=== PATIENT | female | born 1955 | race Caucasian/White ===

== ENCOUNTER 2017-12-25 17:14 | Emergency (ER) | payer OTHER ==
[~2017-12-25] VITALS: Ht 154.9 cm; Wt 142.0 kg
[~2017-12-25 17:14] MED LIST: CARV6.252 PO; FE T325T PO; FURO20 PO; GLIP10TA67 PO; INDO50 PO; METF500 PO; METO5 PO; NORC7.5T PO; OXYB10TA PO; POTA-243 PO; POTA20IN3 PO; PRAV80 PO; PRIL40CA PO; RIVA20 PO; SERT-129 PO; TRAD5TAB PO; WELL150T PO
[2017-12-25 17:37] VITALS: BP 191/89; PULSE 83; RESP 18; TEMP 99.3; O2SAT 97
--- NOTE | 2017-12-25 18:00 | PD ---
HPI Chief Complaint: Skin Problem Time Seen by Provider: 17:47 Travel History International Travel<30 days: No Contact w/Intl Traveler<30days: No Traveled to known affect area: No History of Present Illness HPI 62-year-old female states that she had a trip and fall a couple days ago and has been having left foot pain. She went to an urgent care and had an x-ray that showed a fracture and they were wanting her to go somewhere else to get a possible boot but she elected to just come here to finish her evaluation given she is concerned that her sugars are running high and that she has redness to her upper leg. She denies any other concurrent complaints. She states yesterday when she checked her sugars it was in the 300s. Quality pain is sharp. Severity is moderate. Pain is worse with movement. She denies other modifying factors. PFSH Past Medical History Cardiovascular Problems: Yes (CABG X 4 VESSEL) Diabetes: Yes Hypertension: Yes Myocardial Infarction: Yes Past Surgical History Section: Yes (X2) Coronary Artery Bypass Graft: Yes (QUAD) Joint Replacement: Yes (BILAT KNEE) Social History Alcohol Use: No Tobacco Use: No Substance Use: No Allergies-Medications (Allergen,Severity, Reaction): Coded Allergies: enoxaparin (Unverified Allergy, Severe, BLOOD CLOTS, 12/25/17) heparin (porcine) (Unverified Allergy, Severe, BLOOD CLOTS, 12/25/17) meperidine (Unverified Allergy, Intermediate, HEADACHE, 12/25/17) morphine (Unverified Allergy, Intermediate, HEADACHE, 12/25/17) Reported Meds & Prescriptions Reported Meds & Active Scripts Active Percocet (Oxycodone-Acetaminophen) 5-325 mg Tab 1 Tab PO Q6H PRN Keflex (Cephalexin) 500 Mg Capsule 500 Mg PO Q6H 7 Days Reported Senokot (Sennosides) 8.6 Mg Tab 8.6 Mg PO BID Stool Softener (Docusate Sodium) 100 Mg Cap 1 Cap PO BID Eql Cinnamon (Cinnamon) 500 Mg Cap 500 Mg PO DAILY Hydrocodone-Acetaminophen 7.5 Mg-325 Mg Tab 1 Tab PO TID Potassium Chloride ER (Potassium Chloride) 20 Meq Tab 20 Meq PO DAILY Furosemide 40 Mg Tab 40 Mg PO DAILY Omeprazole 40 Mg Cap 40 Mg PO DAILY Flexeril (Cyclobenzaprine HCl) 10 Mg Tab 10 Mg PO TID PRN Carvedilol 6.25 Mg Tab 6.25 Mg PO BID Bupropion HCl ER 24 HR (Bupropion HCl) 150 Mg Tab 150 Mg PO DAILY Tradjenta (Linagliptin) 5 Mg Tab 5 Mg PO DAILY Pravastatin 40 Mg Tab 40 Mg PO DAILY Metolazone 5 Mg Tab 5 Mg PO DIRECTED Eliquis (Apixaban) 2.5 Mg Tab 2.5 Mg PO BID Review of Systems Except as stated in HPI: all other systems reviewed are Neg Physical Exam Narrative GENERAL: 62-year-old female in no apparent distress SKIN: To left lower leg above the ankle there is a small amount of redness near her chronic venous stasis changes, no crepitus or induration noted HEAD: Atraumatic. Normocephalic. EYES: Pupils equal and round. No scleral icterus. No injection or drainage. ENT: No nasal bleeding or discharge. Mucous membranes pink and moist. NECK: Trachea midline. No JVD. CARDIOVASCULAR: Regular rate and rhythm. RESPIRATORY: No accessory muscle use. Clear to auscultation. Breath sounds equal bilaterally. MUSCULOSKELETAL: No obvious deformities. Pain with palpation of left foot with swelling, no pain with other joints , neurovascularly intact, no lacerations over, compartments soft. NEUROLOGICAL: Awake and alert. Motor grossly within normal limits. Normal speech. PSYCHIATRIC: Appropriate mood and affect; insight and judgment normal. Data Data Last Documented VS Vital Signs Date Time Temp Pulse Resp B/P (MAP) Pulse Ox O2 Delivery O2 Flow Rate FiO2 12/25/17 17:37 99.3 83 18 191/89 (123) 97 Orders Orders Foot, Complete ([id number]) (12/25/17 ) Blood Glucose (12/25/17 17:51) Magnesium (Mg) (12/25/17 17:52) Phosphorus (Po4) (12/25/17 17:52) Complete Blood Count With Diff (12/25/17 17:52) Basic Metabolic Panel (Bmp) (12/25/17 17:52) Iv Access Insert/Monitor (12/25/17 17:52) Shoe Post Op (12/25/17 ) Ed Discharge Order (12/25/17 18:33) Labs Laboratory Tests Test 12/25/17 18:00 White Blood Count 7.8 TH/MM3 Red Blood Count 4.30 MIL/MM3 Hemoglobin 13.2 GM/DL Hematocrit 38.9 % Mean Corpuscular Volume 90.6 FL Mean Corpuscular Hemoglobin 30.8 PG Mean Corpuscular Hemoglobin Concent 33.9 % Red Cell Distribution Width 12.1 % Platelet Count 215 TH/MM3 Mean Platelet Volume 7.7 FL Neutrophils (%) (Auto) 67.0 % Lymphocytes (%) (Auto) 21.9 % Monocytes (%) (Auto) 7.1 % Eosinophils (%) (Auto) 3.2 % Basophils (%) (Auto) 0.8 % Neutrophils # (Auto) 5.1 TH/MM3 Lymphocytes # (Auto) 1.7 TH/MM3 Monocytes # (Auto) 0.6 TH/MM3 Eosinophils # (Auto) 0.3 TH/MM3 Basophils # (Auto) 0.1 TH/MM3 CBC Comment DIFF FINAL Differential Comment Blood Urea Nitrogen 14 MG/DL Creatinine 1.20 MG/DL Random Glucose 369 MG/DL Calcium Level 8.7 MG/DL Phosphorus Level 2.7 MG/DL Magnesium Level 1.8 MG/DL Sodium Level 137 MEQ/L Potassium Level 3.5 MEQ/L Chloride Level 101 MEQ/L Carbon Dioxide Level 29.9 MEQ/L Anion Gap 6 MEQ/L Estimat Glomerular Filtration Rate 45 ML/MIN MDM Medical Decision Making Medical Screen Exam Complete: Yes Emergency Medical Condition: Yes Medical Record Reviewed: Yes (past history confirmed) Interpretation(s) CBC & BMP Diagram 12/25/17 18:00 Calcium Level 8.7, Phosphorus Level 2.7, Magnesium Level 1.8 left foot with metatarsal fracture noted Differential Diagnosis Fracture, cellulitis, hyperglycemia, DKA Narrative Course Will check blood work, left foot x-ray and reevaluate Glucose is in the 300s with normal bicarbonate. This can be followed outpatient. Patient has fracture noted to her metatarsal that can be followed outpatient and postop shoe will be placed. She has very small area of cellulitis noted to her left lower leg without associated leukocytosis. We'll place on Keflex for this.Patient denies any new complaints and states that they are feeling better. Patient happy with care, all questions answered. Patient knows that follow up is incumbent on them and to return to the emergency room immediately if new or worsening symptoms develop. Patient given strict return precautions, vitals reviewed and are normal, agrees to further workup as an outpatient. Diagnosis Primary Impression: Foot fracture, left Qualified Codes: S92.902A - Unspecified fracture of left foot, initial encounter for closed fracture Additional Impressions: Cellulitis Qualified Codes: L03.116 - Cellulitis of left lower limb Diabetes Qualified Codes: E11.8 - Type 2 diabetes mellitus with unspecified complications Patient Instructions: General Instructions Additional Instructions: percocet as needed for severe pain, take antibiotic as directed, follow with primary and stay cutter Thursday, return as needed Med/Other Pt SpecificInfo: Prescription(s) given Scripts Oxycodone-Acetaminophen (Percocet) 5-325 mg Tab 1 TAB PO Q6H Y for PAIN, #10 TAB 0 Refills Prov: Michelle Mcgee MD 12/25/17 Cephalexin (Keflex) 500 Mg Capsule 500 MG PO Q6H for Infection for 7 Days, #28 CAP 0 Refills Prov: Michelle Mcgee MD 12/25/17 Disposition: 01 DISCHARGE HOME Condition: Stable Michelle Mcgee MD Dec 25, 2017 18:00
[2017-12-25] MEDS ORDERED: PRAV40TA2 PO (18:02)
[2017-12-25] MEDS ORDERED: BUPR150T3 PO (18:02)
[2017-12-25] MEDS ORDERED: OMEP40CA2 PO (18:02)
[2017-12-25] MEDS ORDERED: TRAD5TAB PO (18:02)
[2017-12-25] MEDS ORDERED: FURO40TA PO (18:02)
[2017-12-25] MEDS ORDERED: POTA-163 PO (18:02)
[2017-12-25] MEDS ORDERED: SENO8.6T5 PO (18:02)
[2017-12-25] MEDS ORDERED: DOCU1CAP66 PO (18:02)
[2017-12-25] MEDS ORDERED: CARV6.252 PO (18:02)
[2017-12-25] MEDS ORDERED: METO5TAB3 PO (18:02)
[2017-12-25] MEDS ORDERED: APIX2.5T PO (18:02)
[2017-12-25] MEDS ORDERED: CINN500C2 PO (18:02)
[2017-12-25] MEDS ORDERED: CYCL10TA PO (18:02)
[2017-12-25] MEDS ORDERED: HYDR-3580 PO (18:02)
[2017-12-25 18:16] LABS: AUTOMATED NEUTROPHIL # 5.1 TH/MM3 (1.8-7.7); BASOPHIL # 0.1 TH/MM3 (0-0.2); BASOPHIL % 0.8 % (0.0-2.0); EOSINOPHIL # 0.3 TH/MM3 (0-0.4); EOSINOPHIL % 3.2 % (0.0-4.0); HEMATOCRIT 38.9 % (35.0-46.0); HEMOGLOBIN 13.2 GM/DL (11.6-15.3); LYMPH % 21.9 % (9.0-44.0); LYMPHOCYTE # 1.7 TH/MM3 (1.0-4.8); MEAN CELL VOLUME 90.6 FL (80.0-100.0); MEAN CORPUSCULAR HEMOGLOBIN 30.8 PG (27.0-34.0); MEAN CORPUSCULAR HGB CONC 33.9 % (32.0-36.0); MEAN PLATELET VOLUME 7.7 FL (7.0-11.0); MONO % 7.1 % (0.0-8.0); MONOCYTE # 0.6 TH/MM3 (0-0.9); PLATELET COUNT 215 TH/MM3 (150-450); RED CELL DISTRIBUTION WIDTH 12.1 % (11.6-17.2); WHITE BLOOD COUNT 7.8 TH/MM3 (4.0-11.0)
--- NOTE | 2017-12-25 18:25 | RADRPT ---
EXAM DATE/TIME: 12/25/2017 18:11 [facility] COMPARISON: No previous studies available for comparison. INDICATIONS : Left lateral foot pain post fall. MEDICAL HISTORY : None. SURGICAL HISTORY : None. ENCOUNTER: Initial ACUITY: 3 days PAIN SCORE: 8/10 LOCATION: Left foot FINDINGS: The examination demonstrates an angulated fracture involving the distal aspect of the third metatarsa l. The remainder the visualized bony structures are intact. CONCLUSION: Comminuted, foreshortened, angulated fracture involving the third metatarsal. Jr Fowler MD on December 25, 2017 at 18:23 Board Certified Radiologist. This report was verified electronically.
[2017-12-25 18:26] LABS: CALCIUM 8.7 MG/DL (8.5-10.1)
[2017-12-25 18:27] LABS: BICARBONATE 29.9 MEQ/L (21.0-32.0); MAGNESIUM 1.8 MG/DL (1.5-2.5)
[2017-12-25 18:30] LABS: CREATININE 1.2 MG/DL (0.50-1.00); PHOSPHORUS 2.7 MG/DL (2.5-4.9)
[2017-12-25] MEDS ORDERED: CEPH-460 PO (18:32)
[2017-12-25] MEDS ORDERED: PERC5TAB12 PO (18:32)
== END 2017-12-25 19:00 | disposition home or self-care (01) ==
LOC: PHED 17:14
DX: S92.902A Unspecified fracture of left foot, initial encounter for closed fracture (principal); L03.116 Cellulitis of left lower limb; E11.8 Type 2 diabetes mellitus with unspecified complications; E11.65 Type 2 diabetes mellitus with hyperglycemia; I10 Essential (primary) hypertension; I25.2 Old myocardial infarction; Z95.1 Presence of aortocoronary bypass graft; Z79.84 Long term (current) use of oral hypoglycemic drugs; W01.0XXA Fall on same level from slipping, tripping and stumbling without subsequent striking against object, initial encounter
CPT/HCPCS: 73630; 80048; 83735; 84100; 85025; 99284; L3260

== ENCOUNTER 2018-02-27 09:39 | Emergency (ER) | payer OTHER ==
[~2018-02-27] VITALS: Ht 154.9 cm; Wt 140.0 kg
[~2018-02-27 09:39] MED LIST changes: +APIX2.5T PO; +BUPR150T3 PO; +CEPH-460 PO; +CINN500C2 PO; +CYCL10TA PO; +DOCU1CAP66 PO; -FE T325T PO; -FURO20 PO; +FURO40TA PO; -GLIP10TA67 PO; +HYDR-3580 PO; -INDO50 PO; -METF500 PO; -METO5 PO; +METO5TAB3 PO; -NORC7.5T PO; +OMEP40CA2 PO; -OXYB10TA PO; +PERC5TAB12 PO; +POTA-163 PO; -POTA-243 PO; -POTA20IN3 PO; +PRAV40TA2 PO; -PRAV80 PO; -PRIL40CA PO; -RIVA20 PO; +SENO8.6T5 PO; -SERT-129 PO; -WELL150T PO
[2018-02-27 09:43] VITALS: BP 203/88; PULSE 84; RESP 16; TEMP 98.4; O2SAT 93
[2018-02-27] MEDS ORDERED: oxyCODONE/ACETAMINOPHEN 5 MG/325 MG TAB PO ONE (10:00)
[2018-02-27] MEDS ORDERED: SODIUM CHLORIDE 0.9% FLUSH 10 ML FLUSH IVF PRN (10:00)
[2018-02-27] MEDS ORDERED: NOVOLOGP2 SQ (10:02)
[2018-02-27] MEDS ORDERED: SIMV40TA PO (10:02)
[2018-02-27] MEDS ORDERED: INSU1INJ14 SQ (10:04)
[2018-02-27 10:16] VITALS: BP 149/66; PULSE 71; RESP 18; O2SAT 94
[2018-02-27 10:42] LABS: BASOPHIL % 0.6 % (0.0-2.0); EOSINOPHIL # 0.2 TH/MM3 (0-0.4); EOSINOPHIL % 3.2 % (0.0-4.0); HEMATOCRIT 38.1 % (35.0-46.0); HEMOGLOBIN 12.9 GM/DL (11.6-15.3); LYMPH % 20.4 % (9.0-44.0); LYMPHOCYTE # 1.5 TH/MM3 (1.0-4.8); MEAN CELL VOLUME 89.2 FL (80.0-100.0); MEAN CORPUSCULAR HEMOGLOBIN 30.3 PG (27.0-34.0); MEAN PLATELET VOLUME 8.3 FL (7.0-11.0); MONO % 6.5 % (0.0-8.0); MONOCYTE # 0.5 TH/MM3 (0-0.9); NEUT % 69.3 % (16.0-70.0); PLATELET COUNT 233 TH/MM3 (150-450); RED BLOOD COUNT 4.27 MIL/MM3 (4.00-5.30); RED CELL DISTRIBUTION WIDTH 12.8 % (11.6-17.2); WHITE BLOOD COUNT 7.2 TH/MM3 (4.0-11.0)
[2018-02-27 10:51] LABS: CHLORIDE 105 MEQ/L (98-107); SODIUM (NA) 140 MEQ/L (136-145)
[2018-02-27 10:53] LABS: CALCIUM 8.7 MG/DL (8.5-10.1)
[2018-02-27 10:54] LABS: ALBUMIN 3.2 GM/DL (3.4-5.0); BLOOD UREA NITROGEN 14 MG/DL (7-18); GLUCOSE,RANDOM 282 MG/DL (74-106); INTERNATIONAL NORMALIZED RATIO 1.1 RATIO; PROTHROMBIN TIME - PATIENT 11.4 SEC (9.8-11.6)
[2018-02-27 10:57] LABS: ALT (GPT) 14 U/L (10-53); AST (GOT) 10 U/L (15-37); GLOMERULAR FILTRATION RATE 50 ML/MIN (>89)
[2018-02-27 10:59] LABS: TOTAL BILIRUBIN ADULT 0.6 MG/DL (0.2-1.0); TOTAL PROTEIN 6.5 GM/DL (6.4-8.2)
[2018-02-27 11:00] LABS: ALKALINE PHOSPHATASE 79 U/L (45-117)
[2018-02-27 11:02] LABS: TROPONIN I LESS THAN 0.02 NG/ML (0.02-0.05)
--- NOTE | 2018-02-27 11:14 | PD ---
HPI Chief Complaint: Edema Time Seen by Provider: 09:48 Travel History International Travel<30 days: No Contact w/Intl Traveler<30days: No Traveled to known affect area: No History of Present Illness HPI Patient is a 63 year old female who comes in complaining of pain and swelling to her left leg. She broke her left foot about 2 months ago and has been following with Dr. Art regarding this. She says in the past few days and has noticed increased swelling and pain to her calf. She says she woke up this morning with some shortness of breath. She denies any chest pain. She denies fever or chills. She took a Manley this morning for the pain. She takes Eliquis and has been taking it as directed. Severity is mild to moderate. PFSH Past Medical History Cardiovascular Problems: Yes (CABG X 4 VESSEL) High Cholesterol: Yes Diabetes: Yes Patient Takes Glucophage: No GERD: Yes Hypertension: Yes Neurologic: Yes (Neuropathy ) Respiratory: Yes (PE) Myocardial Infarction: Yes ?: Not Past Surgical History Section: Yes (X's 3) Coronary Artery Bypass Graft: Yes (QUAD) Joint Replacement: Yes (BILAT KNEE) Social History Alcohol Use: Yes (Occ.) Tobacco Use: No Substance Use: No Allergies-Medications (Allergen,Severity, Reaction): Coded Allergies: enoxaparin (Unverified Allergy, Severe, BLOOD CLOTS, 02/27/18) heparin (porcine) (Unverified Allergy, Severe, BLOOD CLOTS, 02/27/18) meperidine (Unverified Allergy, Intermediate, HEADACHE, 02/27/18) morphine (Unverified Allergy, Intermediate, RASH, 02/27/18) Reported Meds & Prescriptions Reported Meds & Active Scripts Active Reported Tresiba Flextouch Pen Inj (Insulin Degludec Inj) 300 unit/3 ML Pen 54 Units SQ BID Novolog Inj (Insulin Aspart) 1,000 Unit/10 Ml Vial 17 Units SQ ACHS Max dose at bedtime ( ) units; sugars less than 70,(0) units; sugars 150-199,(2) units; sugars 200-249,(4) units; sugars 250-299,(7) units; sugars 300-349,(10) units; sugars greater than 349,(12)units Simvastatin 40 Mg Tab 40 Mg PO HS Hydrocodone-Acetaminophen 7.5 Mg-325 Mg Tab 1 Tab PO TID Potassium Chloride ER (Potassium Chloride) 20 Meq Tab 20 Meq PO DAILY Furosemide 40 Mg Tab 40 Mg PO DAILY Omeprazole 40 Mg Cap 40 Mg PO DAILY Carvedilol 6.25 Mg Tab 6.25 Mg PO BID Bupropion HCl ER 24 HR (Bupropion HCl) 150 Mg Tab 150 Mg PO DAILY Tradjenta (Linagliptin) 5 Mg Tab 5 Mg PO DAILY Eliquis (Apixaban) 2.5 Mg Tab 5 Mg PO BID Review of Systems Except as stated in HPI: all other systems reviewed are Neg General / Constitutional: No: Fever, Chills HENT: No: Headaches, Lightheadedness Cardiovascular: No: Chest Pain or Discomfort Respiratory: Positive: Shortness of Breath Gastrointestinal: No: Nausea, Vomiting Musculoskeletal: Positive: Edema, Pain Neurologic: No: Weakness, Dizziness Physical Exam Narrative GENERAL: Awake and alert, in no acute distress. SKIN: Mild erythema and warmth across the left lower atkins. No wounds. HEAD: Atraumatic. Normocephalic. EYES: Pupils equal and round. No scleral icterus. ENT: Mucous membranes pink and moist. NECK: Trachea midline. No JVD. CARDIOVASCULAR: Regular rate and rhythm. No murmur appreciated. RESPIRATORY: No accessory muscle use. Clear to auscultation. Breath sounds equal bilaterally. GASTROINTESTINAL: Abdomen soft, non-tender, nondistended. MUSCULOSKELETAL: No obvious deformities. No clubbing. No cyanosis. 2+ pitting edema of the left lower extremity with tenderness to palpation of the left calf. NEUROLOGICAL: Awake and alert. No obvious cranial nerve deficits. Motor grossly within normal limits. Normal speech. PSYCHIATRIC: Appropriate mood and affect; insight and judgment normal. Data Data Last Documented VS Vital Signs Date Time Temp Pulse Resp B/P (MAP) Pulse Ox O2 Delivery O2 Flow Rate FiO2 02/27/18 12:20 70 18 180/78 (112) 97 Room Air 02/27/18 09:43 98.4 Orders Orders Complete Blood Count With Diff (02/27/18 09:56) Comprehensive Metabolic Panel (02/27/18 09:56) Act Partial Throm Time (Ptt) (02/27/18 09:56) Prothrombin Time / Inr (Pt) (02/27/18 09:56) Troponin I (02/27/18 09:56) Iv Access Insert/Monitor (02/27/18 09:56) Electrocardiogram (02/27/18 09:56) Ecg Monitoring (02/27/18 09:56) Oximetry (02/27/18 09:56) Oxygen Administration (02/27/18 09:56) Ct Pulmonary Angiogram (02/27/18 09:56) Us Leg Venous Doppler (02/27/18 09:56) Sodium Chloride 0.9% Flush (Ns Flush) (02/27/18 10:00) Oxycodone-Acetamin 5-325 Mg (Percocet (02/27/18 10:00) Iohexol 350 Inj (Omnipaque 350 Inj) (02/27/18 12:20) Labs Laboratory Tests Test 02/27/18 10:20 White Blood Count 7.2 TH/MM3 Red Blood Count 4.27 MIL/MM3 Hemoglobin 12.9 GM/DL Hematocrit 38.1 % Mean Corpuscular Volume 89.2 FL Mean Corpuscular Hemoglobin 30.3 PG Mean Corpuscular Hemoglobin Concent 34.0 % Red Cell Distribution Width 12.8 % Platelet Count 233 TH/MM3 Mean Platelet Volume 8.3 FL Neutrophils (%) (Auto) 69.3 % Lymphocytes (%) (Auto) 20.4 % Monocytes (%) (Auto) 6.5 % Eosinophils (%) (Auto) 3.2 % Basophils (%) (Auto) 0.6 % Neutrophils # (Auto) 5.0 TH/MM3 Lymphocytes # (Auto) 1.5 TH/MM3 Monocytes # (Auto) 0.5 TH/MM3 Eosinophils # (Auto) 0.2 TH/MM3 Basophils # (Auto) 0.0 TH/MM3 CBC Comment DIFF FINAL Differential Comment Prothrombin Time 11.4 SEC Prothromb Time International Ratio 1.1 RATIO Activated Partial Thromboplast Time 32.8 SEC Blood Urea Nitrogen 14 MG/DL Creatinine 1.10 MG/DL Random Glucose 282 MG/DL Total Protein 6.5 GM/DL Albumin 3.2 GM/DL Calcium Level 8.7 MG/DL Alkaline Phosphatase 79 U/L Aspartate Amino Transf (AST/SGOT) 10 U/L Alanine Aminotransferase (ALT/SGPT) 14 U/L Total Bilirubin 0.6 MG/DL Sodium Level 140 MEQ/L Potassium Level 3.9 MEQ/L Chloride Level 105 MEQ/L Carbon Dioxide Level 29.0 MEQ/L Anion Gap 6 MEQ/L Estimat Glomerular Filtration Rate 50 ML/MIN Troponin I LESS THAN 0.02 NG/ML MDM Medical Decision Making Medical Screen Exam Complete: Yes Emergency Medical Condition: Yes Medical Record Reviewed: Yes Interpretation(s) ECG shows NSR at a rate of 81. No ST elevation or depression, normal intervals. Differential Diagnosis DVT versus PE versus cellulitis Narrative Course Patient is a 63-year-old female who comes in complaining of pain and swelling to her left leg. Exam shows edema and mild erythema to the left lower extremity. IV established, labs sent. Labs show no acute abnormalities. Ultrasound of the left lower extremity shows evidence of a DVT. CT of the chest shows no evidence of PE. Last 24 hours Impressions Lower Extremity Ultrasound 02/27/18 0956 Signed Impressions: Service Date/Time: Thursday, February 27, 2018 11:04 - CONCLUSION: The study is positive for deep venous thrombosis in the calf. 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 I spoke with Dr. York of hematology who suggests changing her to Pradaxa. She is given a prescription for the Pradaxa and advised follow-up with her doctors. Advised return anytime for any worsening symptoms. Diagnosis Primary Impression: DVT (deep venous thrombosis) Qualified Codes: I82.492 - Acute embolism and thrombosis of other specified deep vein of left lower extremity Patient Instructions: Deep Venous Thrombosis (ED), General Instructions Additional Instructions: Stop her Eliquis and switch to Pradaxa. Follow-up with your doctors. Return to the ED as needed for any worsening symptoms. Scripts Dabigatran (Pradaxa) 150 Mg Cap 150 MG PO BID for Blood Clot Prevention, #60 CAP 0 Refills Prov: Zaida Farr MD 02/27/18 Disposition: 01 DISCHARGE HOME Condition: Stable Zaida Farr MD February 27, 2018 11:14
--- NOTE | 2018-02-27 11:54 | RADRPT ---
EXAM DATE/TIME: 02/27/2018 11:04 [facility] COMPARISON: No previous studies available for comparison. INDICATIONS : Left leg edema. MEDICAL HISTORY : Myocardial infarction. Hypercholesterolemia. Hypertension. Neuropathy. Pulmonary embolism. GERD. D iabetes. Anticoagulant therapy, Eliquis. SURGICAL HISTORY : CABG section. Bilateral knee replacements. ENCOUNTER: Initial ACUITY: 3 days PAIN SCORE: 9/10 LOCATION: Left leg. TECHNIQUE: Venous ultrasound of the leg was performed from the inguinal ligament to the proximal calf. Real-keren e, color Doppler and spectral tracing, compression and augmentation techniques were used. FINDINGS: There is normal compressibility of the superficial femoral and popliteal vessels. Intact flow is see n in these vessels. There is noncompressibility and absence of flow the posterior tibial vein. Ther e is a blunted response to distal compression in the popliteal and superficial femoral vein. CONCLUSION: The study is positive for deep venous thrombosis in the calf. Benito Andrews MD on February 27, 2018 at 11:30 Board Certified Radiologist. This report was verified electronically.
[2018-02-27 12:20] VITALS: BP 180/78; PULSE 70; RESP 18; O2SAT 97
[2018-02-27] MEDS ORDERED: IOHEXOL 350 MG/ML 10 ML VIAL (for RAD DIAG) IVCONTRAST ONE (12:20)
--- NOTE | 2018-02-27 12:35 | RADRPT ---
EXAM DATE/TIME: 02/27/2018 11:56 [facility] COMPARISON: No previous studies available for comparison. INDICATIONS : Shortness of breath and left leg swelling for two days. IV CONTRAST: 70 cc Omnipaque 350 (iohexol) IV RADIATION DOSE: 21.51 CTDIvol (mGy) ; Patient body habitus MEDICAL HISTORY : Myocardial infarction. Gastroesophageal reflux disease. pulmonary embolism SURGICAL HISTORY : CABG ENCOUNTER: Initial ACUITY: 1 day PAIN SCALE: 0/10 LOCATION: Bilateral chest TECHNIQUE: Volumetric scanning of the chest was performed using a pulmonary embolism protocol MIP images were re constructed. Using automated exposure control and adjustment of the mA and/or kV according to patien t size, radiation dose was kept as low as reasonably achievable to obtain optimal diagnostic quality images. DICOM format image data is available electronically for review and comparison. Follow-up recommendations for detected pulmonary nodules are based at a minimum on nodule size and pa tient risk factors according to Fleischner Society Guidelines. FINDINGS: PULMONARY ARTERIES: The pulmonary arteries are only visualized to the very proximal segmental level without a definite in traluminal filling defect. The segmental and subsegmental branches are otherwise incompletely opacifi ed for definitive evaluation. LUNGS: Minimal bilateral opacities in the posterior lower lobes bilaterally consistent with atelectasis. PLEURAE: There is no pleural thickening or pleural effusion. MEDIASTINUM: Predominance subcentimeter mediastinal nodes with slightly prominent 11 mm AP node and 14 mm subcarin al paraesophageal node. Postsurgical features of prior CABG. The heart is otherwise unremarkable with out significant pericardial effusion. MUSCULOSKELETAL: Degenerative spondylosis of the thoracic spine. MISCELLANEOUS: Diffusely decreased hepatic density consistent with hepatic steatosis. CONCLUSION: 1. Limited examination due to patient's body habitus and technique. 2. The pulmonary arteries are only visualized to the very proximal segmental level without definite e vidence for pulmonary artery embolism. The segmental and subsegmental branches are incompletely opaci fied for definitive evaluation. 3. Minimal bibasilar atelectasis. 4. Nonspecific minimal mediastinal adenopathy which may be reactive in etiology. 5. Hepatic steatosis. Casa Mora MD on February 27, 2018 at 12:28 Board Certified Radiologist. This report was verified electronically.
[2018-02-27] MEDS ORDERED: PRAD150C PO (12:41)
--- NOTE | 2018-02-27 14:26 | EKG ---
Date Performed: 02/27/2018 Time Performed: 10:10:08 PTAGE: 63 years EKG: Sinus rhythm NORMAL ECG NO PREVIOUS TRACING DOCTOR: James Pressley Interpretating Date/Time 02/27/2018 14:25:08
== END 2018-02-27 13:14 | disposition home or self-care (01) ==
LOC: PHED 09:39
DX: I82.492 Acute embolism and thrombosis of other specified deep vein of left lower extremity (principal); R60.0 Localized edema; R06.02 Shortness of breath; E78.00 Pure hypercholesterolemia, unspecified; E11.9 Type 2 diabetes mellitus without complications; K21.9 Gastro-esophageal reflux disease without esophagitis; I10 Essential (primary) hypertension; I25.2 Old myocardial infarction; Z95.1 Presence of aortocoronary bypass graft
CPT/HCPCS: 71275; 80053; 84484; 85025; 85610; 85730; 93005; 93971; 99285; Q9967

== ENCOUNTER 2018-02-28 19:13 | Emergency (ER) | payer OTHER ==
[~2018-02-28] VITALS: Ht 154.9 cm; Wt 141.0 kg
[~2018-02-28 19:13] MED LIST changes: -CEPH-460 PO; -CINN500C2 PO; -CYCL10TA PO; -DOCU1CAP66 PO; +INSU1INJ14 SQ; -METO5TAB3 PO; +NOVOLOGP2 SQ; -PERC5TAB12 PO; +PRAD150C PO; -PRAV40TA2 PO; -SENO8.6T5 PO; +SIMV40TA PO
[2018-02-28 19:24] VITALS: BP 146/59; PULSE 75; RESP 18
--- NOTE | 2018-02-28 20:49 | PD ---
HPI Chief Complaint: Pain: Acute or Chronic Time Seen by Provider: 20:49 Travel History International Travel<30 days: No Contact w/Intl Traveler<30days: No Traveled to known affect area: No History of Present Illness HPI 63-year-old female presents to the emergency department by private transportation the care of her daughter for evaluation of increased pain to the left lower extremity. Patient has prior history of PE and DVT and most recently was diagnosed with acute DVT affecting the left lower leg. Patient was on Eliquis 5 mg twice daily at the time of development of DVT. Patient felt to be at increased risk for DVT due to morbid obesity and immobility due to recent left foot fracture. Patient had imaging study yesterday ultrasound was consistent with DVT and CTA was performed which revealed no evidence of PE. Due to the fact that she developed a DVT while on anticoagulation hematology was consulted and it was recommended the patient be changed to Pradaxa 150 mg twice daily. Patient is continued to take her Eliquis as she attempted to fill the prescription for the Pradaxa but was unable to do so successfully. Patient knows that it feels as if the swelling and the left lower extremity is moving cephalad. Patient denies any chest pain shortness of breath or hemoptysis. 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; nursing notes reviewed Hx Anticoagulant Therapy: Yes (Eliquis) High Cholesterol: Yes Diabetes: Yes Patient Takes Glucophage: No Deep Vein Thrombosis: Yes GERD: Yes Hypertension: Yes Neurologic: Yes (Neuropathy ) Respiratory: Yes (Asthma) Myocardial Infarction: Yes ?: Not Past Surgical History Section: Yes (X's 3) Coronary Artery Bypass Graft: Yes (QUAD) Hysterectomy: Yes (Partial) Joint Replacement: Yes (BILAT KNEE) Social History Alcohol Use: Yes (Occ.) Tobacco Use: No Substance Use: No Allergies-Medications (Allergen,Severity, Reaction): Coded Allergies: enoxaparin (Unverified Allergy, Severe, BLOOD CLOTS, 02/28/18) heparin (porcine) (Unverified Allergy, Severe, BLOOD CLOTS, 02/28/18) meperidine (Unverified Allergy, Intermediate, HEADACHE, 02/28/18) morphine (Unverified Allergy, Intermediate, RASH, 02/28/18) Reported Meds & Prescriptions Reported Meds & Active Scripts Active Pradaxa (Dabigatran) 150 Mg Cap 150 Mg PO BID Reported Tresiba Flextouch Pen Inj (Insulin Degludec Inj) 300 unit/3 ML Pen 54 Units SQ BID Novolog Inj (Insulin Aspart) 1,000 Unit/10 Ml Vial 17 Units SQ ACHS Max dose at bedtime ( ) units; sugars less than 70,(0) units; sugars 150-199,(2) units; sugars 200-249,(4) units; sugars 250-299,(7) units; sugars 300-349,(10) units; sugars greater than 349,(12)units Simvastatin 40 Mg Tab 40 Mg PO HS Hydrocodone-Acetaminophen 7.5 Mg-325 Mg Tab 1 Tab PO TID Potassium Chloride ER (Potassium Chloride) 20 Meq Tab 20 Meq PO DAILY Furosemide 40 Mg Tab 40 Mg PO DAILY Omeprazole 40 Mg Cap 40 Mg PO DAILY Carvedilol 6.25 Mg Tab 6.25 Mg PO BID Bupropion HCl ER 24 HR (Bupropion HCl) 150 Mg Tab 150 Mg PO DAILY Tradjenta (Linagliptin) 5 Mg Tab 5 Mg PO DAILY Eliquis (Apixaban) 2.5 Mg Tab 5 Mg PO BID Review of Systems Except as stated in HPI: all other systems reviewed are Neg Physical Exam Narrative GENERAL: Well-developed well-nourished morbidly obese female no acute distress no respiratory distress SKIN: Warm and dry. HEAD: Normocephalic. EYES: No scleral icterus. No injection or drainage. NECK: Supple, trachea midline. No JVD or lymphadenopathy. CARDIOVASCULAR: Regular rate and rhythm without murmurs, gallops, or rubs. RESPIRATORY: Breath sounds equal bilaterally. No accessory muscle use. GASTROINTESTINAL: Abdomen soft, non-tender, nondistended. MUSCULOSKELETAL: No cyanosis, or edema. Left lower leg edema with erythema mild increased warmth. BACK: Nontender without obvious deformity. No CVA tenderness. Data Data Last Documented VS Vital Signs Date Time Temp Pulse Resp B/P (MAP) Pulse Ox O2 Delivery O2 Flow Rate FiO2 02/28/18 23:35 74 16 120/68 (85) 96 02/28/18 21:44 98.6 Room Air Orders Orders Complete Blood Count With Diff (02/28/18 21:00) Basic Metabolic Panel (Bmp) (02/28/18 21:00) Act Partial Throm Time (Ptt) (02/28/18 21:00) Prothrombin Time / Inr (Pt) (02/28/18 21:00) Dabigatran (Pradaxa) (02/28/18 21:00) Ed Discharge Order (02/28/18 22:53) Labs Laboratory Tests Test 02/28/18 21:24 White Blood Count 10.2 TH/MM3 Red Blood Count 4.12 MIL/MM3 Hemoglobin 12.2 GM/DL Hematocrit 36.8 % Mean Corpuscular Volume 89.3 FL Mean Corpuscular Hemoglobin 29.7 PG Mean Corpuscular Hemoglobin Concent 33.2 % Red Cell Distribution Width 12.4 % Platelet Count 228 TH/MM3 Mean Platelet Volume 7.7 FL Neutrophils (%) (Auto) 72.6 % Lymphocytes (%) (Auto) 18.1 % Monocytes (%) (Auto) 6.4 % Eosinophils (%) (Auto) 2.5 % Basophils (%) (Auto) 0.4 % Neutrophils # (Auto) 7.4 TH/MM3 Lymphocytes # (Auto) 1.8 TH/MM3 Monocytes # (Auto) 0.7 TH/MM3 Eosinophils # (Auto) 0.3 TH/MM3 Basophils # (Auto) 0.0 TH/MM3 CBC Comment DIFF FINAL Differential Comment Prothrombin Time 11.1 SEC Prothromb Time International Ratio 1.1 RATIO Activated Partial Thromboplast Time 32.6 SEC Blood Urea Nitrogen 16 MG/DL Creatinine 1.20 MG/DL Random Glucose 154 MG/DL Calcium Level 8.9 MG/DL Sodium Level 138 MEQ/L Potassium Level 3.9 MEQ/L Chloride Level 102 MEQ/L Carbon Dioxide Level 30.4 MEQ/L Anion Gap 6 MEQ/L Estimat Glomerular Filtration Rate 45 ML/MIN MDM Medical Decision Making Medical Screen Exam Complete: Yes Emergency Medical Condition: Yes Medical Record Reviewed: Yes Interpretation(s) CBC & BMP Diagram 02/28/18 21:24 Calcium Level 8.9 Vital Signs Date Time Temp Pulse Resp B/P (MAP) Pulse Ox O2 Delivery O2 Flow Rate FiO2 02/28/18 23:35 74 16 120/68 (85) 96 02/28/18 21:44 98.6 85 18 105/61 (76) 96 Room Air 02/28/18 21:06 98.4 95 Room Air 02/28/18 19:24 75 18 146/59 (88) Differential Diagnosis Propagating DVT, inadequate anticoagulation, medication noncompliance Narrative Course discussed with Dr Garcia --give pradaxa --obs if cant get RX filled; discussed in detail with Dr Dow--will have [facility] pharmacy [facility] fill her RX and see in clinic for pradaxa samples as needed Extensive conversation conducted with on-call physician who identifies that as patient does not have access to her anticoagulant medication but can receive this medication in the hospital, she has arranged for patient to have access to her new prescription in the morning through her provider pharmacy as well as access to samples of the medication through the [facility]. This is discussed with the patient. The patient's daughter has also had an opportunity to discuss this with Dr. Quique Sarmiento. Patient is comfortable with being discharged to home after receiving first dose of Pradaxa in the emergency department with close follow-up with the [facility] in the a.m. and obtaining her new prescription to the [facility] pharmacy as well at that time. Lab values are otherwise grossly in normal range. Patient is stable for outpatient management. Physician Communication Physician Communication discussed with DR Garcia; discused with DR Dow Diagnosis Primary Impression: DVT (deep venous thrombosis) Qualified Codes: I82.432 - Acute embolism and thrombosis of left popliteal vein Additional Impression: Encounter for wound re-check Referrals: Primary Care Physician 1 day Patient Instructions: General Instructions Additional Instructions: Follow up in AM with [facility] clinic and pharmacy as discussed with DR Dow Take medication as prescribed Return to the emergency department for any concerns or change in condition Disposition: 01 DISCHARGE HOME Condition: Stable Marzena Weir MD February 28, 2018 20:49
[2018-02-28] MEDS ORDERED: DABIGATRAN ETEXILATE 150 MG CAP PO ONE (21:00)
[2018-02-28 21:06] VITALS: TEMP 98.4; O2SAT 95
[2018-02-28 21:34] LABS: AUTOMATED NEUTROPHIL # 7.4 TH/MM3 (1.8-7.7); BASOPHIL % 0.4 % (0.0-2.0); EOSINOPHIL # 0.3 TH/MM3 (0-0.4); EOSINOPHIL % 2.5 % (0.0-4.0); HEMATOCRIT 36.8 % (35.0-46.0); HEMOGLOBIN 12.2 GM/DL (11.6-15.3); LYMPH % 18.1 % (9.0-44.0); LYMPHOCYTE # 1.8 TH/MM3 (1.0-4.8); MEAN CELL VOLUME 89.3 FL (80.0-100.0); MEAN CORPUSCULAR HEMOGLOBIN 29.7 PG (27.0-34.0); MEAN CORPUSCULAR HGB CONC 33.2 % (32.0-36.0); MEAN PLATELET VOLUME 7.7 FL (7.0-11.0); MONO % 6.4 % (0.0-8.0); MONOCYTE # 0.7 TH/MM3 (0-0.9); NEUT % 72.6 % (16.0-70.0); PLATELET COUNT 228 TH/MM3 (150-450); RED BLOOD COUNT 4.12 MIL/MM3 (4.00-5.30); RED CELL DISTRIBUTION WIDTH 12.4 % (11.6-17.2); WHITE BLOOD COUNT 10.2 TH/MM3 (4.0-11.0)
[2018-02-28 21:44] VITALS: BP 105/61; PULSE 85; RESP 18; TEMP 98.6; O2SAT 96
[2018-02-28 21:45] LABS: CALCIUM 8.9 MG/DL (8.5-10.1)
[2018-02-28 21:46] LABS: BICARBONATE 30.4 MEQ/L (21.0-32.0)
[2018-02-28 21:54] LABS: INTERNATIONAL NORMALIZED RATIO 1.1 RATIO; PROTHROMBIN TIME - PATIENT 11.1 SEC (9.8-11.6)
[2018-02-28 22:06] LABS: CREATININE 1.2 MG/DL (0.50-1.00)
[2018-02-28 23:35] VITALS: BP 120/68
== END 2018-02-28 23:39 | disposition home or self-care (01) ==
LOC: PHED 19:13
DX: I82.432 Acute embolism and thrombosis of left popliteal vein (principal); Z79.01 Long term (current) use of anticoagulants; E11.9 Type 2 diabetes mellitus without complications; E78.00 Pure hypercholesterolemia, unspecified; K21.9 Gastro-esophageal reflux disease without esophagitis; I10 Essential (primary) hypertension; I25.2 Old myocardial infarction; J45.909 Unspecified asthma, uncomplicated
CPT/HCPCS: 80048; 85025; 85610; 85730; 99283

== ENCOUNTER 2018-03-07 13:46 | Inpatient (IN) | payer OTHER ==
[~2018-03-07] VITALS: Ht 154.9 cm; Wt 125.0 kg
[2018-03-07 14:04] VITALS: BP 176/73; PULSE 73; RESP 20; TEMP 98.7; O2SAT 94
[2018-03-07] MEDS ORDERED: INSU1INJ14 SQ (15:07)
[2018-03-07] MEDS ORDERED: VANCOMYCIN INJ 1,000 MG in SODIUM CHLOR 0.9% 250 ML INJ 250 ML IV ONE (15:30)
--- NOTE | 2018-03-07 15:33 | PD ---
HPI Chief Complaint: Pain: Acute or Chronic Time Seen by Provider: 14:45 Travel History International Travel<30 days: No Contact w/Intl Traveler<30days: No Traveled to known affect area: No History of Present Illness HPI 63-year-old female complains of pain and swelling and redness of left leg and left knee. 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 Patient states that she has increasing redness swelling and discharge from the wound to the medial aspect the left leg for the past 3 days. Patient was seen by her oncologist 3 days ago and given prescription for antibiotics including Keflex and doxycycline. Patient has been taking antibiotic as directed. Patient states that she had increasing redness swelling and discharge from the area despite taking the antibiotics. Patient denies any fever chills. Patient has history of DVT on Pradaxa. Patient also has history of diabetes and hyperlipidemia. PFSH Past Medical History Hx Anticoagulant Therapy: Yes (PRADEXA) Cardiovascular Problems: Yes ([place]) High Cholesterol: Yes Chest Pain: Yes Diabetes: Yes Patient Takes Glucophage: No Diminished Hearing: No Deep Vein Thrombosis: Yes GERD: Yes Hypertension: Yes Neurologic: Yes (Neuropathy ) Respiratory: Yes (PE) Myocardial Infarction: Yes Tetanus Vaccination: Unknown ?: Not : 3 Para: 3 Dilation and Curettage (D&C): Yes Tubal Ligation: Yes Past Surgical History Section: Yes (X's 2) Coronary Artery Bypass Graft: Yes (quad) Hysterectomy: Yes (PARTIAL) Joint Replacement: Yes (BILAT KNEE) Social History Alcohol Use: Yes (Occ.) Tobacco Use: No Substance Use: No (pt uses medical marijuana) Allergies-Medications (Allergen,Severity, Reaction): Coded Allergies: enoxaparin (Verified Allergy, Severe, BLOOD CLOTS, 03/07/18) heparin (porcine) (Verified Allergy, Severe, BLOOD CLOTS, 03/07/18) vancomycin (Verified Allergy, Severe, Shortness of Breath, 03/07/18) redness meperidine (Verified Allergy, Intermediate, HEADACHE, 03/07/18) morphine (Verified Allergy, Intermediate, RASH, 03/07/18) Reported Meds & Prescriptions Reported Meds & Active Scripts Active Pradaxa (Dabigatran) 150 Mg Cap 150 Mg PO BID Reported Tresiba Flextouch Pen Inj (Insulin Degludec Inj) 300 unit/3 ML Pen 60 Units SQ TID Novolog Inj (Insulin Aspart) 1,000 Unit/10 Ml Vial 17 Units SQ ACHS Max dose at bedtime ( ) units; sugars less than 70,(0) units; sugars 150-199,(2) units; sugars 200-249,(4) units; sugars 250-299,(7) units; sugars 300-349,(10) units; sugars greater than 349,(12)units Simvastatin 40 Mg Tab 40 Mg PO HS Hydrocodone-Acetaminophen 7.5 Mg-325 Mg Tab 1 Tab PO TID Potassium Chloride ER (Potassium Chloride) 20 Meq Tab 20 Meq PO DAILY Furosemide 40 Mg Tab 40 Mg PO DAILY Omeprazole 40 Mg Cap 40 Mg PO DAILY Carvedilol 6.25 Mg Tab 6.25 Mg PO BID Bupropion HCl ER 24 HR (Bupropion HCl) 150 Mg Tab 150 Mg PO DAILY Review of Systems General / Constitutional: No: Fever Eyes: No: Visual changes HENT: No: Headaches Cardiovascular: No: Chest Pain or Discomfort Respiratory: No: Shortness of Breath Gastrointestinal: No: Abdominal Pain Genitourinary: No: Dysuria Musculoskeletal: No: Pain Skin: No Rash Neurologic: No: Weakness Psychiatric: No: Depression Endocrine: No: Polydipsia Hematologic/Lymphatic: No: Easy Bruising Physical Exam Narrative GENERAL: Well-nourished, well-developed patient. SKIN: Focused skin assessment warm/dry. HEAD: Normocephalic. EYES: No scleral icterus. No injection or drainage. NECK: Supple, trachea midline. No JVD or lymphadenopathy. CARDIOVASCULAR: Regular rate and rhythm without murmurs, gallops, or rubs. RESPIRATORY: Breath sounds equal bilaterally. No accessory muscle use. GASTROINTESTINAL: Abdomen soft, non-tender, nondistended. MUSCULOSKELETAL: Patient has an ulcer lesion on the medial aspect the left knee area with redness swelling extends from the knee to the left ankle. Small amount of pus draining from the lesion. BACK: Nontender without obvious deformity. No CVA tenderness. Neurologic exam normal. Data Data Last Documented VS Vital Signs Date Time Temp Pulse Resp B/P (MAP) Pulse Ox O2 Delivery O2 Flow Rate FiO2 03/07/18 16:50 196/95 03/07/18 16:38 108 19 100 Nasal Cannula 4.00 03/07/18 14:04 98.7 Orders Orders Complete Blood Count With Diff (03/07/18 15:20) Comprehensive Metabolic Panel (03/07/18 15:20) Prothrombin Time / Inr (Pt) (03/07/18 15:20) Act Partial Throm Time (Ptt) (03/07/18 15:20) Blood Culture (03/07/18 15:20) Urinalysis - C+S If Indicated (03/07/18 15:20) Chest, Single Ap (03/07/18 15:20) Iv Access Insert/Monitor (03/07/18 15:20) Ecg Monitoring (03/07/18 15:20) Oximetry (03/07/18 15:20) Sodium Chlor 0.9% 1000 Ml Inj (Ns 1000 M (03/07/18 15:30) Vancomycin Inj (Vancomycin Inj) (03/07/18 15:30) Wound Culture And Gram Stain (03/07/18 15:27) Acetamin-Hydrocod 325-5 Mg ([place] 5-325 (03/07/18 16:30) Diphenhydramine Inj (Benadryl Inj) (03/07/18 16:30) Epinephrine (1:1000) Inj (Adrenalin (1:1 (03/07/18 16:30) Albuterol-Ipratropium Neb (Duoneb Neb) (03/07/18 16:31) Methylprednisolone So Succ Inj (Solumedr (03/07/18 16:32) Diphenhydramine Inj (Benadryl Inj) (03/07/18 16:45) Methylprednisolone So Succ Inj (Solumedr (03/07/18 16:45) Sodium Chloride 0.9% Flush (Ns Flush) (03/07/18 16:45) Epinephrine (1:1000) Inj (Adrenalin (1:1 (03/07/18 16:45) Lorazepam Inj (Ativan Inj) (03/07/18 16:45) Albuterol-Ipratropium Neb (Duoneb Neb) (03/07/18 17:00) Albuterol-Ipratropium Neb (Duoneb Neb) (03/07/18 17:30) Labs Laboratory Tests Test 03/07/18 15:30 03/07/18 16:00 03/07/18 16:20 White Blood Count 8.5 TH/MM3 Red Blood Count 4.36 MIL/MM3 Hemoglobin 13.1 GM/DL Hematocrit 38.4 % Mean Corpuscular Volume 88.0 FL Mean Corpuscular Hemoglobin 30.0 PG Mean Corpuscular Hemoglobin Concent 34.1 % Red Cell Distribution Width 13.1 % Platelet Count 310 TH/MM3 Mean Platelet Volume 7.6 FL Neutrophils (%) (Auto) 71.1 % Lymphocytes (%) (Auto) 18.9 % Monocytes (%) (Auto) 6.4 % Eosinophils (%) (Auto) 3.3 % Basophils (%) (Auto) 0.3 % Neutrophils # (Auto) 6.0 TH/MM3 Lymphocytes # (Auto) 1.6 TH/MM3 Monocytes # (Auto) 0.5 TH/MM3 Eosinophils # (Auto) 0.3 TH/MM3 Basophils # (Auto) 0.0 TH/MM3 CBC Comment DIFF FINAL Differential Comment Urine Color YELLOW Urine Turbidity CLEAR Urine pH 5.0 Urine Specific [place] 1.008 Urine Protein NEG mg/dL Urine Glucose (UA) NEG mg/dL Urine Ketones NEG mg/dL Urine Occult Blood NEG Urine Nitrite NEG Urine Bilirubin NEG Urine Urobilinogen LESS THAN 2.0 MG/DL Urine Leukocyte Esterase SMALL Urine RBC 1 /hpf Urine WBC LESS THAN 1 /hpf Urine Squamous Epithelial Cells 3 /hpf Urine Mucus FEW /lpf Microscopic Urinalysis Comment CULT NOT INDICATED Prothrombin Time 12.7 SEC Prothromb Time International Ratio 1.3 RATIO Activated Partial Thromboplast Time 43.2 SEC Blood Urea Nitrogen 18 MG/DL Creatinine 1.24 MG/DL Random Glucose 139 MG/DL Total Protein 6.7 GM/DL Albumin 2.8 GM/DL Calcium Level 8.5 MG/DL Alkaline Phosphatase 78 U/L Aspartate Amino Transf (AST/SGOT) 11 U/L Alanine Aminotransferase (ALT/SGPT) 13 U/L Total Bilirubin 0.4 MG/DL Sodium Level 141 MEQ/L Potassium Level 3.9 MEQ/L Chloride Level 104 MEQ/L Carbon Dioxide Level 30.0 MEQ/L Anion Gap 7 MEQ/L Estimat Glomerular Filtration Rate 44 ML/MIN MDM Medical Decision Making Medical Screen Exam Complete: Yes Emergency Medical Condition: Yes Interpretation(s) Last Impressions Chest X-Ray 03/07/18 1520 Signed Impressions: CONCLUSION: Clear lungs. 1649 PM. CBC within normal limits. UA negative. 1736 PM. Creatinine 1.24. GFR 44. Differential Diagnosis Differential diagnosis including infected lesion, cellulitis, abscess. Narrative Course 63-year-old female with redness swelling and discharge from the infected lesion left knee. Vancomycin 1 g IV was ordered. 1645 PM. I was informed by nurse patient started having itching red rash and complained of shortness of breath immediately after vancomycin started. Patient was given oxygen nasal cannula 2 L immediately. Patient was given epinephrine 0.3 mg IM. Patient was given Solu -Medrol 125 mg IV. Patient was given Benadryl 50 mg IV. Albuterol with Atrovent unit dose treatment 3 given. Vancomycin is added on allergy list. Diagnosis Primary Impression: Left leg cellulitis Additional Impressions: Infected lesion of skin Failure of outpatient treatment Allergic reaction to drug Qualified Codes: T78.40XA - Allergy, unspecified, initial encounter Admitting Information Admitting Physician Requests: Admit Chepe Haile MD March 07, 2018 15:33
[2018-03-07 15:58] LABS: BASOPHIL % 0.3 % (0.0-2.0); EOSINOPHIL # 0.3 TH/MM3 (0-0.4); EOSINOPHIL % 3.3 % (0.0-4.0); HEMATOCRIT 38.4 % (35.0-46.0); HEMOGLOBIN 13.1 GM/DL (11.6-15.3); LYMPH % 18.9 % (9.0-44.0); LYMPHOCYTE # 1.6 TH/MM3 (1.0-4.8); MEAN CORPUSCULAR HGB CONC 34.1 % (32.0-36.0); MEAN PLATELET VOLUME 7.6 FL (7.0-11.0); MONO % 6.4 % (0.0-8.0); MONOCYTE # 0.5 TH/MM3 (0-0.9); NEUT % 71.1 % (16.0-70.0); PLATELET COUNT 310 TH/MM3 (150-450); RED BLOOD COUNT 4.36 MIL/MM3 (4.00-5.30); RED CELL DISTRIBUTION WIDTH 13.1 % (11.6-17.2); WHITE BLOOD COUNT 8.5 TH/MM3 (4.0-11.0)
[2018-03-07] MEDS: SODIUM CHLOR 0.9% 1000 ML INJ 1,000 ML IV SCH ×2 (16:07→22:33)
--- NOTE | 2018-03-07 16:29 | RADRPT ---
EXAM DATE: 03/07/2018 4:02 PM EDT AGE/SEX: 63 years / Female INDICATIONS: Shortness of breath, history of deep venous thrombosis. CLINICAL DATA: This is the patient's initial encounter. Patient reports that signs and symptoms have been present for 1 day and indicates a pain score of 0/10. MEDICAL/SURGICAL HISTORY: Hypertension. Diabetes mellitus type II. Deep venous thrombosis. CA BG. COMPARISON: . FINDINGS: 2 portable frontal views of the chest show the heart to be mildly enlarged. Lungs are clear without i nfiltrate or effusion. Median sternotomy wires. CONCLUSION: Clear lungs. Electronically signed by: Benito Harper MD 03/07/2018 4:27 PM EDT
[2018-03-07] MEDS ORDERED: ACETAMINOPHEN/HYDROcodone 325 MG/5 MG TAB PO ONE (16:30)
[2018-03-07] MEDS ORDERED: EPINEPHrine HCL (1:1000) 1 MG/ML VIAL ONE (16:30)
[2018-03-07] MEDS ORDERED: diphenhydrAMINE HCL 50 MG/ML VIAL IV PUSH ONE (16:30)
[2018-03-07] MEDS ORDERED: RESP: ALBUTEROL 2.5 MG/IPRATROPIUM 0.5 MG NEB (SCH) ONE (16:31)
[2018-03-07] MEDS ORDERED: methylPREDNISolone SOD SUCC 125 MG/2 ML VIAL ONE (16:32)
[2018-03-07 16:34] VITALS: BP 196/95; PULSE 118; RESP 20; O2SAT 97
[2018-03-07] MEDS: RESP: ALBUTEROL 2.5 MG/IPRATROPIUM 0.5 MG NEB (SCH) INH ×2 (16:35→16:50)
[2018-03-07 16:36] LABS: BILIRUBIN, URINE NEG (NEG); BLOOD, URINE NEG (NEG); GLUCOSE,URINE NEG (NEG); KETONE, URINE NEG (NEG); MUCUS URINE FEW /lpf (OCC); NITRITE,URINE NEG (NEG); SQUAMOUS EPITHELIAL CELL URINE 3 /hpf (0-5); URINE COLOR YELLOW (YELLW/STRAW); URINE LEUKOCYTE ESTERASE SMALL (NEG)
[2018-03-07 16:38] VITALS: BP 172/79; PULSE 108; RESP 19; O2SAT 100
[2018-03-07] MEDS ORDERED: LORazepam 2 MG/ML VIAL IV PUSH ONE (16:45)
[2018-03-07] MEDS ORDERED: EPINEPHrine HCL (1:1000) 1 MG/ML VIAL IM ONE (16:45)
[2018-03-07] MEDS ORDERED: SODIUM CHLORIDE 0.9% FLUSH 10 ML FLUSH IV FLUSH PRN ×2 (16:45→19:00)
[2018-03-07] MEDS ORDERED: diphenhydrAMINE HCL 50 MG/ML VIAL IVP ONE (16:45)
[2018-03-07] MEDS ORDERED: methylPREDNISolone SOD SUCC 125 MG/2 ML VIAL IV PUSH ONE (16:45)
[2018-03-07 17:05] LABS: INTERNATIONAL NORMALIZED RATIO 1.3 RATIO; PROTHROMBIN TIME - PATIENT 12.7 SEC (9.8-11.6)
[2018-03-07 17:25] LABS: ALBUMIN 2.8 GM/DL (3.4-5.0); ALT (GPT) 13 U/L (10-53); AST (GOT) 11 U/L (15-37); BLOOD UREA NITROGEN 18 MG/DL (7-18); CALCIUM 8.5 MG/DL (8.5-10.1); CHLORIDE 104 MEQ/L (98-107); CREATININE 1.24 MG/DL (0.50-1.00); GLOMERULAR FILTRATION RATE 44 ML/MIN (>89); GLUCOSE,RANDOM 139 MG/DL (74-106); SODIUM (NA) 141 MEQ/L (136-145)
[2018-03-07 17:28] LABS: ALKALINE PHOSPHATASE 78 U/L (45-117); TOTAL BILIRUBIN ADULT 0.4 MG/DL (0.2-1.0); TOTAL PROTEIN 6.7 GM/DL (6.4-8.2)
[2018-03-07] MEDS ORDERED: RESP: ALBUTEROL 2.5 MG/IPRATROPIUM 0.5 MG NEB (SCH) INH ONE (17:30)
[2018-03-07 18:28] VITALS: BP 143/63; PULSE 75; RESP 20; TEMP 97.7; O2SAT 100
--- NOTE | 2018-03-07 18:59 | HHI.HP ---
HPI Service [facility] Hospitalists Primary Care Physician Lashonda Blanton MD Admission Diagnosis Left leg cellulitis. Infected lesion left leg. Chief Complaint: progressive left leg cellulitis over last 3 days Travel History International Travel<30 Days: No Contact w/Intl Traveler <30 Da: No Traveled to Known Affected Are: No History of Present Illness 63-year-old female complains of pain and swelling and redness of left leg and left knee. 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 Patient states that she has increasing redness swelling and discharge from the wound to the medial aspect the left leg for the past 3 days. Patient was seen by her oncologist 3 days ago and given prescription for antibiotics including Keflex and doxycycline. Patient has been taking antibiotic as directed. Patient states that she had increasing redness swelling and discharge from the area despite taking the antibiotics. Patient denies any fever chills. Patient has history of DVT on Pradaxa. Patient also has history of diabetes and hyperlipidemia. In er was started on vancomycin but had reaction requiring nebulizer,steroid treatment will admit for IV antibiotics and ID evaluation and wound care evaluation. Culture obtained. Review of Systems Musculoskeletal: COMPLAINS OF: Joint Swelling Past Family Social History Past Medical History PE,DVT,CAD Quad bypass [place],hyperlipid,DM,hypertension,GERD,neuropathy Past Surgical History tubal ligation,CABG,hysterectomy,bilateral knee Reported Medications Pradaxa (Dabigatran) 150 Mg Cap 150 Mg PO BID Reported Tresiba Flextouch Pen Inj (Insulin Degludec Inj) 300 unit/3 ML Pen 60 Units SQ TID Novolog Inj (Insulin Aspart) 1,000 Unit/10 Ml Vial 17 Units SQ ACHS Max dose at bedtime ( ) units; sugars less than 70,(0) units; sugars 150-199,(2) units; sugars 200-249,(4) units; sugars 250-299,(7) units; sugars 300-349,(10) units; sugars greater than 349,(12)units Simvastatin 40 Mg Tab 40 Mg PO HS Hydrocodone-Acetaminophen 7.5 Mg-325 Mg Tab 1 Tab PO TID Potassium Chloride ER (Potassium Chloride) 20 Meq Tab 20 Meq PO DAILY Furosemide 40 Mg Tab 40 Mg PO DAILY Omeprazole 40 Mg Cap 40 Mg PO DAILY Carvedilol 6.25 Mg Tab 6.25 Mg PO BID Bupropion HCl ER 24 HR (Bupropion HCl) 150 Mg Tab 150 Mg PO DAILY Allergies: Coded Allergies: enoxaparin (Verified Allergy, Severe, BLOOD CLOTS, 03/07/18) heparin (porcine) (Verified Allergy, Severe, BLOOD CLOTS, 03/07/18) vancomycin (Verified Allergy, Severe, Shortness of Breath, 03/07/18) redness meperidine (Verified Allergy, Intermediate, HEADACHE, 03/07/18) morphine (Verified Allergy, Intermediate, RASH, 03/07/18) Social History NS,ND uses medical marijuana Physical Exam Vital Signs Vital Signs Date Time Temp Pulse Resp B/P (MAP) Pulse Ox O2 Delivery O2 Flow Rate FiO2 03/07/18 18:28 97.7 75 20 143/63 (89) 100 Nasal Cannula 4.00 03/07/18 16:50 196/95 03/07/18 16:38 108 19 172/79 (110) 100 Nasal Cannula 4.00 03/07/18 16:34 118 20 196/95 (128) 97 Room Air 03/07/18 14:04 98.7 73 20 176/73 (107) 94 Physical Exam GENERAL: This is a well-nourished, well-developed patient, in no apparent distress. SKIN: No rashes, ecchymoses or lesions. Cool and dry. ulcer lesion medial aspect left knee redness extending to ankle HEAD: Atraumatic. Normocephalic. No temporal or scalp tenderness. EYES: Pupils equal round and reactive. Extraocular motions intact. No scleral icterus. No injection or drainage. ENT: Nose without bleeding, purulent drainage or septal hematoma. Throat without erythema, tonsillar hypertrophy or exudate. Uvula midline. Airway patent. NECK: Trachea midline. No JVD or lymphadenopathy. Supple, nontender, no meningeal signs. CARDIOVASCULAR: Regular rate and rhythm without murmurs, gallops, or rubs. RESPIRATORY: Clear to auscultation. Breath sounds equal bilaterally. No wheezes , rales, or rhonchi. GASTROINTESTINAL: Abdomen soft, non-tender, nondistended. No hepato-splenomegaly , or palpable masses. No guarding. MUSCULOSKELETAL: Extremities without clubbing, cyanosis, or edema. No joint tenderness, effusion, or edema noted. No calf tenderness. Negative Homans sign bilaterally. NEUROLOGICAL: Awake and alert. Cranial nerves II through XII intact. Motor and sensory grossly within normal limits. Five out of 5 muscle strength in all muscle groups. Normal speech. Laboratory Laboratory Tests Test 03/07/18 15:30 03/07/18 16:00 03/07/18 16:20 White Blood Count 8.5 Red Blood Count 4.36 Hemoglobin 13.1 Hematocrit 38.4 Mean Corpuscular Volume 88.0 Mean Corpuscular Hemoglobin 30.0 Mean Corpuscular Hemoglobin Concent 34.1 Red Cell Distribution Width 13.1 Platelet Count 310 Mean Platelet Volume 7.6 Neutrophils (%) (Auto) 71.1 Lymphocytes (%) (Auto) 18.9 Monocytes (%) (Auto) 6.4 Eosinophils (%) (Auto) 3.3 Basophils (%) (Auto) 0.3 Neutrophils # (Auto) 6.0 Lymphocytes # (Auto) 1.6 Monocytes # (Auto) 0.5 Eosinophils # (Auto) 0.3 Basophils # (Auto) 0.0 CBC Comment DIFF FINAL Differential Comment Urine Color YELLOW Urine Turbidity CLEAR Urine pH 5.0 Urine Specific [place] 1.008 Urine Protein NEG Urine Glucose (UA) NEG Urine Ketones NEG Urine Occult Blood NEG Urine Nitrite NEG Urine Bilirubin NEG Urine Urobilinogen LESS THAN 2.0 Urine Leukocyte Esterase SMALL Urine RBC 1 Urine WBC LESS THAN 1 Urine Squamous Epithelial Cells 3 Urine Mucus FEW Microscopic Urinalysis Comment CULT NOT INDICATED Prothrombin Time 12.7 Prothromb Time International Ratio 1.3 Activated Partial Thromboplast Time 43.2 Blood Urea Nitrogen 18 Creatinine 1.24 Random Glucose 139 Total Protein 6.7 Albumin 2.8 Calcium Level 8.5 Alkaline Phosphatase 78 Aspartate Amino Transf (AST/SGOT) 11 Alanine Aminotransferase (ALT/SGPT) 13 Total Bilirubin 0.4 Sodium Level 141 Potassium Level 3.9 Chloride Level 104 Carbon Dioxide Level 30.0 Anion Gap 7 Estimat Glomerular Filtration Rate 44 Date/Time Source Procedure Growth Status 03/07/18 15:30 Blood Peripheral Aerobic Blood Culture Pending Received 03/07/18 15:30 Blood Peripheral Anaerobic Blood Culture Pending Received 03/07/18 15:30 Wound Knee Gram Stain Pending Received 03/07/18 15:30 Wound Knee Wound Culture Pending Received Result Diagram: 03/07/18 1530 03/07/18 1620 Imaging Last 24 hours Impressions Chest X-Ray 03/07/18 1520 Signed Impressions: CONCLUSION: Clear lungs. Course started with reaction to vancomycin Caprini VTE Risk Assessment Caprini VTE Risk Assessment: Mod/High Risk (score >= 2) Caprini Risk Assessment Model Point Value = 1 Point Value = 2 Point Value = 3 Point Value = 5 Age 41-60 Minor surgery BMI > 25 kg/m2 Swollen legs Varicose veins or History of unexplained or recurrent spontaneous Oral contraceptives or hormone replacement Sepsis (< 1 month) Serious lung disease, including pneumonia (< 1 month) Abnormal pulmonary function Acute myocardial infarction Congestive heart failure (< 1 month) History of inflammatory bowel disease Medical patient at bed rest Age 61-74 Arthroscopic surgery Major open surgery (> 45 min) Laparoscopic surgery (> 45 min) Malignancy Confined to bed (> 72 hours) Immobilizing plaster cast Central venous access Age >= 75 History of VTE Family history of VTE Factor V Leiden Prothrombin [id number] Lupus anticoagulant Anticardiolipin antibodies Elevated serum homocysteine Heparin-induced thrombocytopenia Other congenital or acquired thrombophilia Stroke (< 1 month) Elective arthroplasty Hip, pelvis, or leg fracture Acute spinal cord injury (< 1 month) Prophylaxis Regimen Total Risk Factor Score Risk Level Prophylaxis Regimen 0-1 Low Early ambulation 2 Moderate Order ONE of the following: *Sequential Compression Device (SCD) *Heparin 5000 units SQ BID 3-4 Higher Order ONE of the following medications: *Heparin 5000 units SQ TID *Enoxaparin/Lovenox 40 mg SQ daily (WT < 150 kg, CrCl > 30 mL/min) *Enoxaparin/Lovenox 30 mg SQ daily (WT < 150 kg, CrCl > 10-29 mL/min) *Enoxaparin/Lovenox 30 mg SQ BID (WT < 150 kg, CrCl > 30 mL/min) AND/OR *Sequential Compression Device (SCD) 5 or more Highest Order ONE of the following medications: *Heparin 5000 units SQ TID (Preferred with Epidurals) *Enoxaparin/Lovenox 40 mg SQ daily (WT < 150 kg, CrCl > 30 mL/min) *Enoxaparin/Lovenox 30 mg SQ daily (WT < 150 kg, CrCl > 10-29 mL/min) *Enoxaparin/Lovenox 30 mg SQ BID (WT < 150 kg, CrCl > 30 mL/min) AND *Sequential Compression Device (SCD) Assessment and Plan Problem List: (1) Left leg cellulitis ICD Codes: L03.116 - Cellulitis of left lower limb Status: Acute Plan: will start on zosyn and consult wound care and ID failed outpatient treatment keflex doxycline (2) Infected lesion of skin ICD Codes: L08.9 - Local infection of the skin and subcutaneous tissue, unspecified Status: Acute Plan: culture obtained plan as above (3) Diabetes ICD Codes: E11.9 - Type 2 diabetes mellitus without complications Status: Chronic Plan: continue current medications and sliding scale (4) Hypertension ICD Codes: I10 - Essential (primary) hypertension Plan: continue home medications (5) DVT (deep venous thrombosis) ICD Codes: I82.409 - Acute embolism and thrombosis of unspecified deep veins of unspecified lower extremity Plan: on chronic pradaxa Assessment and Plan further plan as case develops Code Status full Discussed Condition With patient Physician Certification 2 Midnight Certification Type: Admission for Inpatient Services Order for Inpatient Services The services are ordered in accordance with Medicare regulations or non- Medicare payer requirements, as applicable. In the case of services not specified as inpatient-only, they are appropriately provided as inpatient services in accordance with the 2-midnight benchmark. Estimated LOS (days): 3 3 days is the estimated time the patient will need to remain in the hospital, assuming treatment plan goals are met and no additional complications. Post-Hospital Plan: Not yet determined Lenny Johns MD March 07, 2018 18:59
[2018-03-07] MEDS ORDERED: MAGNESIUM HYDROXIDE SUSP 30 ML CUP PO PRN (19:00)
[2018-03-07] MEDS ORDERED: SENNOSIDES 8.6 MG TAB PO PRN (19:00)
[2018-03-07] MEDS ORDERED: BISACODYL 10 MG SUPP RECTAL PRN (19:00)
[2018-03-07] MEDS ORDERED: ACETAMINOPHEN 325 MG TAB PO PRN (19:00)
[2018-03-07] MEDS ORDERED: NALOXONE HCL 0.4 MG/ML AMP IV PUSH PRN (19:00)
[2018-03-07 19:13] VITALS: BP 173/82; PULSE 79; RESP 16; O2SAT 99
[2018-03-07] MEDS: PANTOPRAZOLE SOD 40 MG DELAYED RELEASE TAB PO SCH (19:15)
[2018-03-07] MEDS ORDERED: INSULIN DEGLUDEC SQ SCH (19:30)
[2018-03-07 20:00] VITALS: BP 143/70; PULSE 78; RESP 18; TEMP 97.9; O2SAT 93
[2018-03-07] MEDS: DOCUSATE SODIUM 50 MG/SENNA 8.6 MG TAB PO SCH (20:51)
[2018-03-07] MEDS: PRAVASTATIN SOD 80 MG TAB PO SCH (20:51)
[2018-03-07] MEDS: SODIUM CHLORIDE 0.9% FLUSH 10 ML FLUSH IV FLUSH SCH (20:51)
[2018-03-07] MEDS: CARVEDILOL 6.25 MG TAB PO SCH (20:51)
[2018-03-07] MEDS: INSULIN ASPART SUPPLEMENTAL SCALE SQ SCH (20:51)
[2018-03-07] MEDS: INSULIN ASPART 1,000 UNITS/10 ML VIAL SQ SCH (20:51)
[2018-03-07] MEDS: DABIGATRAN ETEXILATE 150 MG CAP PO SCH (22:27)
[2018-03-07] MEDS: PIPERACIL-TAZO 3.375 GM PREMIX 50 ML IV SCH (22:27)
[2018-03-08] VITALS (9 sets, daily range): BP systolic 118–144; BP diastolic 58–70; PULSE 62–81; RESP 16–18; TEMP 98–98.6; O2SAT 93–98
[2018-03-08] MEDS ORDERED: traMADol HCL 50 MG TAB PO SCH (02:15)
[2018-03-08] MEDS: ACETAMINOPHEN 325 MG TAB PO PRN (02:41)
[2018-03-08] MEDS: PIPERACIL-TAZO 3.375 GM PREMIX 50 ML IV SCH ×2 (02:41→09:02)
[2018-03-08 07:37] LABS: AUTOMATED NEUTROPHIL # 6.2 TH/MM3 (1.8-7.7); BASOPHIL % 0.1 % (0.0-2.0); EOSINOPHIL % 0.1 % (0.0-4.0); HEMATOCRIT 35.8 % (35.0-46.0); HEMOGLOBIN 12.2 GM/DL (11.6-15.3); LYMPH % 10.6 % (9.0-44.0); LYMPHOCYTE # 0.8 TH/MM3 (1.0-4.8); MEAN CELL VOLUME 88.5 FL (80.0-100.0); MEAN CORPUSCULAR HEMOGLOBIN 30.2 PG (27.0-34.0); MEAN CORPUSCULAR HGB CONC 34.1 % (32.0-36.0); MEAN PLATELET VOLUME 7.9 FL (7.0-11.0); MONOCYTE # 0.1 TH/MM3 (0-0.9); NEUT % 88.2 % (16.0-70.0); PLATELET COUNT 295 TH/MM3 (150-450); RED BLOOD COUNT 4.04 MIL/MM3 (4.00-5.30); WHITE BLOOD COUNT 7.1 TH/MM3 (4.0-11.0)
[2018-03-08 07:55] LABS: BICARBONATE 25.8 MEQ/L (21.0-32.0); CALCIUM 8.3 MG/DL (8.5-10.1); CREATININE 1.16 MG/DL (0.50-1.00)
[2018-03-08] MEDS: DABIGATRAN ETEXILATE 150 MG CAP PO SCH ×2 (08:59→21:43)
[2018-03-08] MEDS: DOCUSATE SODIUM 50 MG/SENNA 8.6 MG TAB PO SCH ×2 (08:59→21:43)
[2018-03-08] MEDS: CARVEDILOL 6.25 MG TAB PO SCH ×2 (08:59→21:43)
[2018-03-08] MEDS: PANTOPRAZOLE SOD 40 MG DELAYED RELEASE TAB PO SCH (09:00)
[2018-03-08] MEDS: POTASSIUM CHLORIDE 20 MEQ CONTROLLED RELEASE TAB PO SCH (09:00)
[2018-03-08] MEDS: FUROSEMIDE 40 MG TAB PO SCH (09:00)
[2018-03-08] MEDS: buPROPion HCL 150 MG EXTENDED RELEASE TAB PO SCH (09:00)
[2018-03-08] MEDS: INSULIN ASPART 1,000 UNITS/10 ML VIAL SQ SCH ×4 (09:01→21:00)
[2018-03-08] MEDS: INSULIN ASPART SUPPLEMENTAL SCALE SQ SCH ×4 (09:02→21:00)
[2018-03-08] MEDS: SODIUM CHLORIDE 0.9% FLUSH 10 ML FLUSH IV FLUSH SCH ×2 (09:02→21:42)
[2018-03-08] MEDS: ACETAMINOPHEN/HYDROcodone 325 MG/7.5 MG TAB PO SCH ×3 (09:03→18:46)
--- NOTE | 2018-03-08 10:03 | HHI.PR ---
Subjective Remarks left leg feels less painful and swollen. Objective Vitals heart reg lung cta abd s/nt ext left medial knee/leg quarter size raised lesion with purelent drainage and lower ext tenderness/mild erythema Vital Signs Date Time Temp Pulse Resp B/P (MAP) Pulse Ox O2 Delivery O2 Flow Rate FiO2 03/08/18 08:00 98.5 76 16 136/64 (88) 94 03/08/18 06:27 71 03/08/18 04:00 98.0 77 18 122/70 (87) 93 03/08/18 00:00 98.6 81 18 127/67 (87) 93 03/07/18 20:00 97.9 78 18 143/70 (94) 93 03/07/18 19:43 03/07/18 19:13 79 16 173/82 (112) 99 Nasal Cannula 3.00 03/07/18 18:28 97.7 75 20 143/63 (89) 100 Nasal Cannula 4.00 03/07/18 16:50 196/95 03/07/18 16:38 108 19 172/79 (110) 100 Nasal Cannula 4.00 03/07/18 16:34 118 20 196/95 (128) 97 Room Air 03/07/18 14:04 98.7 73 20 176/73 (107) 94 Result Diagram: 03/08/18 0544 03/08/18 0544 Imaging Last 24 hours Impressions Chest X-Ray 03/07/18 1520 Signed Impressions: CONCLUSION: Clear lungs. A/P Problem List: (1) Left leg cellulitis ICD Codes: L03.116 - Cellulitis of left lower limb Status: Acute Plan: 1) left leg cellulitis/purulent wound. pt reports chronic wound x 6 yrs and following vein removal for cabg surgery. 2) recurrent left leg dvt. provoked. 11/29 while on eliquis but in cast immobilizer for fx toes and long car trip. converted to pradaxa by hematology. 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 6) depression 7) ckd 3 Pt started on zosyn last night. given vancomycin and developed itch/rash/ sob..given epi/steroid/benadryl and nebs ID was consulted f/u pending blood and wound cx. ? u/s soft tissue cont basal and bolus insulin and titrate as needed. cont her pradaxa for dvt PT eval cont chronic home meds for chf/htn (2) Infected lesion of skin ICD Codes: L08.9 - Local infection of the skin and subcutaneous tissue, unspecified Status: Acute Plan: culture obtained plan as above (3) Diabetes ICD Codes: E11.9 - Type 2 diabetes mellitus without complications Status: Chronic Plan: continue current medications and sliding scale (4) Hypertension ICD Codes: I10 - Essential (primary) hypertension Plan: continue home medications (5) DVT (deep venous thrombosis) ICD Codes: I82.409 - Acute embolism and thrombosis of unspecified deep veins of unspecified lower extremity Plan: on chronic pradaxa Jack López MD March 08, 2018 10:03
--- NOTE | 2018-03-08 13:49 | PD.ID.CON ---
History of Present Illness Service ID Consult Requested By . Reason for Consult Evaluation and Mment of Left leg cellulitis and ulcer by the left knee. Primary Care Physician Lashonda Blanton MD Diagnoses: History of Present Illness is a 63-year-old female complains of pain and swelling and redness of left leg and left knee. 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 Patient states that she has increasing redness swelling and discharge from the wound to the medial aspect the left leg for the past 3 days. Patient was seen by her oncologist 3 days ago and given prescription for antibiotics including Keflex and doxycycline. Patient has been taking antibiotic as directed but reports only doing 1 possibly 2 days of antibiotics so far. Patient states that she had increasing redness swelling and discharge from the area despite taking the antibiotics. Patient denies any fever chills. Patient has history of DVT on Pradaxa. Patient also has history of diabetes and hyperlipidemia. In er was started on vancomycin but had reaction requiring nebulizer,steroid treatment will admit for IV antibiotics and ID evaluation and wound care evaluation. Patient reports the lesion first started at site of her bypass grafting site. After this she had her knees replaced and the lesion has acted up off and on but this may be the worst so far. She reports hardware in her knee and no change in ROM of left knee. Patient reports the pain and swelling is what brought her to the ED. ID consulted for evaluation and Mment of left leg cellulitis and ulcer non healing by left knee. Review of Systems ROS Limitations: Poor Historian Constitutional: DENIES: Diaphoretic episodes, Fatigue, Fever, Weight gain, Weight loss, Chills, Dizziness, Change in appetite, Night Sweats Endocrine: DENIES: Abnorml menstrual pattern, Heat/cold intolerance, Polydipsia , Polyuria, Polyphagia Eyes: DENIES: Blurred vision, Diplopia, Eye inflammation, Eye pain, Vision loss , Photosensitivity, Double Vision Ears, nose, mouth, throat: DENIES: Tinnitus, Hearing loss, Vertigo, Nasal discharge, Oral lesions, Throat pain, Hoarseness, Ear Pain, Running Nose, Epistaxis, Sinus Pain, Toothache, Odynophagia Respiratory: DENIES: Apneas, Cough, Snoring, Wheezing, Hemoptysis, Sputum production, Shortness of breath Cardiovascular: DENIES: Chest pain, Palpitations, Syncope, Dyspnea on Exertion , PND, Lower Extremity Edema, Orthopnea, Claudication Gastrointestinal: DENIES: Abdominal pain, Black stools, Bloody stools, Constipation, Diarrhea, Nausea, Vomiting, Difficulty Swallowing, Anorexia Genitourinary: DENIES: Abnormal vaginal bleeding, Dysmenorrhea, Dyspareunia, Sexual dysfunction, Urinary frequency, Urinary incontinence, Urgency, Hematuria , Dysuria, Nocturia, Vaginal discharge Musculoskeletal: DENIES: Joint pain, Muscle aches, Stiffness, Joint Swelling, Back pain, Neck pain Integumentary: COMPLAINS OF: Abnormal pigmentation, DENIES: Pruritus, Rash, Nail changes, Breast masses, Breast skin changes, Nipple discharge Hematologic/lymphatic: DENIES: Bruising, Lymphadenopathy Immunologic/allergic: DENIES: Eczema, Urticaria Neurologic: DENIES: Abnormal gait, Headache, Localized weakness, Paresthesias, Seizures, Speech Problems, Tremor, Poor Balance Psychiatric: DENIES: Anxiety, Confusion, Mood changes, Depression, Hallucinations, Agitation, Suicidal Ideation, Homicidal Ideation, Delusions Except as stated in HPI: all other systems reviewed are Neg Past Family Social History Allergies: Coded Allergies: enoxaparin (Verified Allergy, Severe, BLOOD CLOTS, 03/07/18) heparin (porcine) (Verified Allergy, Severe, BLOOD CLOTS, 03/07/18) vancomycin (Verified Allergy, Severe, Shortness of Breath, 03/07/18) redness meperidine (Verified Allergy, Intermediate, HEADACHE, 03/07/18) morphine (Verified Allergy, Intermediate, RASH, 03/07/18) Past Medical History PE, DVT, CAD Quad bypass [place], hyperlipidemia DM, hypertension, GERD, neuropathy Past Surgical History tubal ligation, CABG, hysterectomy, bilateral knee Reported Medications Reported Meds & Active Scripts Active Pradaxa (Dabigatran) 150 Mg Cap 150 Mg PO BID Reported Tresiba Flextouch Pen Inj (Insulin Degludec Inj) 300 unit/3 ML Pen 60 Units SQ TID Novolog Inj (Insulin Aspart) 1,000 Unit/10 Ml Vial 17 Units SQ ACHS Max dose at bedtime ( ) units; sugars less than 70,(0) units; sugars 150-199,(2) units; sugars 200-249,(4) units; sugars 250-299,(7) units; sugars 300-349,(10) units; sugars greater than 349,(12)units Simvastatin 40 Mg Tab 40 Mg PO HS Hydrocodone-Acetaminophen 7.5 Mg-325 Mg Tab 1 Tab PO TID Potassium Chloride ER (Potassium Chloride) 20 Meq Tab 20 Meq PO DAILY Furosemide 40 Mg Tab 40 Mg PO DAILY Omeprazole 40 Mg Cap 40 Mg PO DAILY Carvedilol 6.25 Mg Tab 6.25 Mg PO BID Bupropion HCl ER 24 HR (Bupropion HCl) 150 Mg Tab 150 Mg PO DAILY Active Ordered Medications Current Medications Medications (Trade) Dose Ordered Sig/Galilea Route Start Time Stop Time Status Last Admin (NS Flush) 2 ml UNSCH PRN IV FLUSH 03/07/18 16:45 (Wellbutrin Xl 24 Hr) 150 mg DAILY PO 03/08/18 09:00 (Coreg) 6.25 mg BID PO 03/07/18 21:00 03/08/18 21:43 (Pradaxa) 150 mg BID PO 03/07/18 21:00 03/08/18 21:43 (Lasix) 40 mg DAILY PO 03/08/18 09:00 03/08/18 09:00 ([place] 7.5-325 Mg) 1 tab TID PO 03/08/18 09:00 03/08/18 18:46 (NovoLOG INJ) 17 units ACHS SQ 03/07/18 21:00 03/08/18 18:46 (KCl) 20 meq DAILY PO 03/08/18 09:00 03/08/18 09:00 Patient Own Medication PT OWN MED: INSU... TID SQ 03/07/18 19:30 Future Hold (Protonix) 40 mg DAILY PO 03/07/18 19:15 03/08/18 09:00 (Pravachol) 80 mg HS PO 03/07/18 21:00 03/08/18 21:43 (NS Flush) 2 ml UNSCH PRN IV FLUSH 03/07/18 19:00 (NS Flush) 2 ml BID IV FLUSH 03/07/18 21:00 03/08/18 21:42 (Tylenol) 650 mg Q4H PRN PO 03/07/18 19:00 (Restoril) 15 mg HS PRN PO 03/07/18 19:00 (Narcan Inj) 0.4 mg UNSCH PRN IV PUSH 03/07/18 19:00 (Erma-Colace) 1 tab BID PO 03/07/18 21:00 03/08/18 21:43 (Milk Of Magnesia Liq) 30 ml Q12H PRN PO 03/07/18 19:00 (Senokot) 17.2 mg Q12H PRN PO 03/07/18 19:00 (Dulcolax Supp) 10 mg DAILY PRN RECTAL 03/07/18 19:00 (Lactulose Liq) 30 ml DAILY PRN PO 03/07/18 19:00 (NovoLOG SUPPLEMENTAL SCALE) 1 ACHS SLIDING SCALE SQ 03/07/18 21:00 03/08/18 18:46 (Tylenol) 650 mg Q4H PRN PO 03/08/18 02:15 03/08/18 02:41 Cefazolin Sodium/ Dextrose 50 ml @ 100 mls/hr Q12H IV 03/08/18 14:00 03/08/18 14:39 (Lac-Hydrin 12% Lotion) 1 applic BID TOPICAL 03/08/18 15:00 03/08/18 21:49 Family History reviewed and NC to current ID problems. Social History Nonsmoker No alcohol. per records uses medical marijuana Physical Exam Vital Signs Vital Signs Date Time Temp Pulse Resp B/P (MAP) Pulse Ox O2 Delivery O2 Flow Rate FiO2 03/08/18 12:00 98.1 65 16 144/69 (94) 96 03/08/18 12:00 65 03/08/18 08:00 98.5 76 16 136/64 (88) 94 03/08/18 08:00 75 03/08/18 06:27 71 03/08/18 04:00 98.0 77 18 122/70 (87) 93 03/08/18 00:00 98.6 81 18 127/67 (87) 93 03/07/18 20:00 97.9 78 18 143/70 (94) 93 03/07/18 19:43 03/07/18 19:13 79 16 173/82 (112) 99 Nasal Cannula 3.00 03/07/18 18:28 97.7 75 20 143/63 (89) 100 Nasal Cannula 4.00 03/07/18 16:50 196/95 03/07/18 16:38 108 19 172/79 (110) 100 Nasal Cannula 4.00 03/07/18 16:34 118 20 196/95 (128) 97 Room Air 03/07/18 14:04 98.7 73 20 176/73 (107) 94 Physical Exam GENERAL: This is a well-nourished, well-developed patient, in no apparent distress. SKIN: No rashes, ecchymoses or lesions. Cool and dry. HEAD: Atraumatic. Normocephalic. No temporal or scalp tenderness. EYES: Pupils equal round and reactive. Extraocular motions intact. No scleral icterus. No injection or drainage. ENT: Nose without bleeding, purulent drainage or septal hematoma. Throat without erythema, tonsillar hypertrophy or exudate. Uvula midline. Airway patent. NECK: Trachea midline. Supple, nontender, no meningeal signs. CARDIOVASCULAR: HS audible. RESPIRATORY: Clear to auscultation. Breath sounds equal bilaterally. No wheezes , rales, or rhonchi. GASTROINTESTINAL: Abdomen soft, non-tender, nondistended. MUSCULOSKELETAL: Bilateral LE with lymphedema like chronic changed. Chronic skin changes s/o stasis dermatitis. Chronic skin discoloration left more than right. Left leg with significant swelling, erythema and induration noted wilfred around left knee. A scabbed lesion with opening noted and yellow discharge draining down to the ankle. NEUROLOGICAL: Awake and alert. Cranial nerves II through XII intact. Motor and sensory grossly within normal limits. Five out of 5 muscle strength in all muscle groups. Normal speech. Psych cooperative IV line sites with no e.o infection. Laboratory Laboratory Tests Test 03/07/18 15:30 03/07/18 16:00 03/07/18 16:20 03/08/18 05:44 White Blood Count 8.5 7.1 Red Blood Count 4.36 4.04 Hemoglobin 13.1 12.2 Hematocrit 38.4 35.8 Mean Corpuscular Volume 88.0 88.5 Mean Corpuscular Hemoglobin 30.0 30.2 Mean Corpuscular Hemoglobin Concent 34.1 34.1 Red Cell Distribution Width 13.1 13.0 Platelet Count 310 295 Mean Platelet Volume 7.6 7.9 Neutrophils (%) (Auto) 71.1 88.2 Lymphocytes (%) (Auto) 18.9 10.6 Monocytes (%) (Auto) 6.4 1.0 Eosinophils (%) (Auto) 3.3 0.1 Basophils (%) (Auto) 0.3 0.1 Neutrophils # (Auto) 6.0 6.2 Lymphocytes # (Auto) 1.6 0.8 Monocytes # (Auto) 0.5 0.1 Eosinophils # (Auto) 0.3 0.0 Basophils # (Auto) 0.0 0.0 CBC Comment DIFF FINAL DIFF FINAL Differential Comment Urine Color YELLOW Urine Turbidity CLEAR Urine pH 5.0 Urine Specific [place] 1.008 Urine Protein NEG Urine Glucose (UA) NEG Urine Ketones NEG Urine Occult Blood NEG Urine Nitrite NEG Urine Bilirubin NEG Urine Urobilinogen LESS THAN 2.0 Urine Leukocyte Esterase SMALL Urine RBC 1 Urine WBC LESS THAN 1 Urine Squamous Epithelial Cells 3 Urine Mucus FEW Microscopic Urinalysis Comment CULT NOT INDICATED Prothrombin Time 12.7 Prothromb Time International Ratio 1.3 Activated Partial Thromboplast Time 43.2 Blood Urea Nitrogen 18 24 Creatinine 1.24 1.16 Random Glucose 139 275 Total Protein 6.7 Albumin 2.8 Calcium Level 8.5 8.3 Alkaline Phosphatase 78 Aspartate Amino Transf (AST/SGOT) 11 Alanine Aminotransferase (ALT/SGPT) 13 Total Bilirubin 0.4 Sodium Level 141 140 Potassium Level 3.9 4.0 Chloride Level 104 103 Carbon Dioxide Level 30.0 25.8 Anion Gap 7 11 Estimat Glomerular Filtration Rate 44 47 Date/Time Source Procedure Growth Status 03/07/18 15:30 Blood Peripheral Aerobic Blood Culture - Preliminary NO GROWTH IN 1 DAY Resulted 03/07/18 15:30 Blood Peripheral Anaerobic Blood Culture - Preliminary NO GROWTH IN 1 DAY Resulted 03/07/18 15:30 Wound Knee Gram Stain - Final Resulted 03/07/18 15:30 Wound Knee Wound Culture - Preliminary NO GROWTH IN 24 HOURS. Resulted Result Diagram: 03/08/18 0544 03/08/18 0544 Imaging Last Impressions Knee X-Ray 03/08/18 0000 Signed Impressions: CONCLUSION: Left knee arthroplasty without fracture Chest X-Ray 03/07/18 1520 Signed Impressions: CONCLUSION: Clear lungs. Assessment and Plan Assessment and Plan Left leg cellulitis with left leg medial aspect below knee with non healing ulcer. R/o underlying hardware infection. Lymphedema bilateral Chronic venous stasis. CAD s/p CABG Bilateral TKR. Recs DC Zosyn IV Start Ancef IV Elevate left leg. ZENY wrap LLE Xray Left knee r/o underlying hardware infection related hardware loosening etc. Lachydrin for local application. Follow cultures Follow clinically. morales patient and spouse morales Herbert. Johanna Navarrete MD March 08, 2018 13:49
[2018-03-08] MEDS: ceFAZolin 2 GM PREMIX 50 ML IV SCH (14:39)
--- NOTE | 2018-03-08 14:48 | RADRPT ---
EXAM DATE: 03/08/2018 2:42 PM EDT AGE/SEX: 63 years / Female INDICATIONS: Left knee pain and swelling, infectious cyst after surgery. CLINICAL DATA: This is the patient's subsequent encounter. Patient reports that signs and symptoms h ave been present for 2 weeks and indicates a pain score of 7/10. MEDICAL/SURGICAL HISTORY: None. Total knee replacement, left. CABG. COMPARISON: No prior [place] exams available for comparison. FINDINGS: Views of the left knee demonstrates arthroplasty. No hardware loosening or fracture. No joint effusio n. Diffuse soft tissue swelling. Surgical clips in soft tissues. No radiopaque foreign bodies seen. CONCLUSION: Left knee arthroplasty without fracture Electronically signed by: Rolf Ochoa MD 03/08/2018 2:46 PM EDT
[2018-03-08] MEDS: LACTIC ACID (AMMONIUM LACTATE) 12% LOTION 225 GM BTL TOPICAL SCH ×2 (15:23→21:49)
[2018-03-08] MEDS: PRAVASTATIN SOD 80 MG TAB PO SCH (21:43)
[2018-03-09] VITALS (8 sets, daily range): BP systolic 115–146; BP diastolic 65–84; PULSE 56–86; RESP 16–20; TEMP 97.5–98.8; O2SAT 90–99
[2018-03-09] MEDS: ceFAZolin 2 GM PREMIX 50 ML IV SCH ×2 (02:46→13:38)
[2018-03-09] MEDS: TEMAZEPAM 15 MG CAP PO PRN (02:55)
[2018-03-09] MEDS: ACETAMINOPHEN 325 MG TAB PO PRN (02:56)
[2018-03-09 07:39] LABS: BICARBONATE 27.4 MEQ/L (21.0-32.0); CALCIUM 8.4 MG/DL (8.5-10.1); CREATININE 1.29 MG/DL (0.50-1.00)
[2018-03-09] MEDS: INSULIN ASPART SUPPLEMENTAL SCALE SQ SCH ×4 (08:00→21:00)
[2018-03-09] MEDS: DOCUSATE SODIUM 50 MG/SENNA 8.6 MG TAB PO SCH ×3 (09:00→21:00)
[2018-03-09] MEDS: PANTOPRAZOLE SOD 40 MG DELAYED RELEASE TAB PO SCH (09:52)
[2018-03-09] MEDS: CARVEDILOL 6.25 MG TAB PO SCH ×2 (09:52→21:00)
[2018-03-09] MEDS: FUROSEMIDE 40 MG TAB PO SCH (09:53)
[2018-03-09] MEDS: DABIGATRAN ETEXILATE 150 MG CAP PO SCH (09:54)
[2018-03-09] MEDS: POTASSIUM CHLORIDE 20 MEQ CONTROLLED RELEASE TAB PO SCH (09:54)
[2018-03-09] MEDS: ACETAMINOPHEN/HYDROcodone 325 MG/7.5 MG TAB PO SCH ×3 (09:54→18:50)
[2018-03-09] MEDS: buPROPion HCL 150 MG EXTENDED RELEASE TAB PO SCH (09:54)
[2018-03-09] MEDS: INSULIN ASPART 1,000 UNITS/10 ML VIAL SQ SCH ×4 (09:55→21:00)
[2018-03-09] MEDS: LACTIC ACID (AMMONIUM LACTATE) 12% LOTION 225 GM BTL TOPICAL SCH ×2 (09:56→21:00)
[2018-03-09] MEDS: SODIUM CHLORIDE 0.9% FLUSH 10 ML FLUSH IV FLUSH SCH ×2 (09:56→21:00)
--- NOTE | 2018-03-09 10:17 | PD.PN.STU ---
Subjective Remarks Feeling well today. No fevers. No problems ambulating. Left leg feels less swollen. Objective Vitals Vital Signs Date Time Temp Pulse Resp B/P (MAP) Pulse Ox O2 Delivery O2 Flow Rate FiO2 03/09/18 04:00 98.0 63 19 115/69 (84) 99 03/09/18 00:00 97.6 69 18 119/65 (83) 98 03/08/18 23:00 69 03/08/18 22:00 98.0 62 17 118/60 (79) 97 03/08/18 17:41 66 03/08/18 16:00 98.5 67 17 127/58 (81) 98 03/08/18 12:00 98.1 65 16 144/69 (94) 96 03/08/18 12:00 65 I/O 03/08/18 03/08/18 03/08/18 03/09/18 03/09/18 03/09/18 07:00 15:00 23:00 07:00 15:00 23:00 Intake Total 250 ml 950 ml 800 ml Balance 250 ml 950 ml 800 ml Intake Oral 900 ml 800 ml IV Total 250 ml 50 ml # Voids 2 1 3 # Bowel Movements 0 0 Result Diagram: 03/08/18 0544 03/09/18 0609 Objective Remarks NAD Clear lungs Bilateral leg edema, bilateral knee scars consistent with knee replacement surgeries. left lower leg is less red than yesterday with nonhealing ulcer left leg medial aspect below knee. Slight discharge from lesion. Zbigniew bandage wrapped around leg. Medications and IVs Current Medications Medications (Trade) Dose Ordered Sig/Galilea Route PRN Reason Start Time Stop Time Status Last Admin Dose Admin Sodium Chloride (NS Flush) 2 ml UNSCH PRN IV FLUSH FLUSH AFTER USING IV ACCESS 03/07/18 16:45 Bupropion HCl (Wellbutrin Xl 24 Hr) 150 mg DAILY PO 03/08/18 09:00 Carvedilol (Coreg) 6.25 mg BID PO 03/07/18 21:00 03/08/18 21:43 Dabigatran (Pradaxa) 150 mg BID PO 03/07/18 21:00 03/08/18 21:43 Furosemide (Lasix) 40 mg DAILY PO 03/08/18 09:00 03/08/18 09:00 Acetaminophen/ Hydrocodone Bitart ([place] 7.5-325 Mg) 1 tab TID PO 03/08/18 09:00 03/08/18 18:46 Insulin Aspart (NovoLOG INJ) 17 units ACHS SQ 03/07/18 21:00 03/08/18 18:46 Potassium Chloride (KCl) 20 meq DAILY PO 03/08/18 09:00 03/08/18 09:00 Patient Own Medication PT OWN MED: INSU... TID SQ 03/07/18 19:30 Future Hold Pantoprazole Sodium (Protonix) 40 mg DAILY PO 03/07/18 19:15 03/08/18 09:00 Pravastatin Sodium (Pravachol) 80 mg HS PO 03/07/18 21:00 03/08/18 21:43 Sodium Chloride (NS Flush) 2 ml UNSCH PRN IV FLUSH FLUSH AFTER USING IV ACCESS 03/07/18 19:00 Sodium Chloride (NS Flush) 2 ml BID IV FLUSH 03/07/18 21:00 03/08/18 21:42 Acetaminophen (Tylenol) 650 mg Q4H PRN PO TEMP > 100.4 03/07/18 19:00 Temazepam (Restoril) 15 mg HS PRN PO INSOMNIA 03/07/18 19:00 03/09/18 02:55 Naloxone HCl (Narcan Inj) 0.4 mg UNSCH PRN IV PUSH SEE LABEL COMMENTS 03/07/18 19:00 Senna/Docusate Sodium (Erma-Colace) 1 tab BID PO 03/07/18 21:00 03/08/18 21:43 Magnesium Hydroxide (Milk Of Magnesia Liq) 30 ml Q12H PRN PO Mild constipation 03/07/18 19:00 Sennosides (Senokot) 17.2 mg Q12H PRN PO Moderate constipation 03/07/18 19:00 Bisacodyl (Dulcolax Supp) 10 mg DAILY PRN RECTAL SEVERE CONSITIPATION 03/07/18 19:00 Lactulose (Lactulose Liq) 30 ml DAILY PRN PO SEVERE CONSITIPATION 03/07/18 19:00 Insulin Aspart (NovoLOG SUPPLEMENTAL SCALE) 1 ACHS SLIDING SCALE SQ 03/07/18 21:00 03/08/18 18:46 Acetaminophen (Tylenol) 650 mg Q4H PRN PO PAIN OF 1-10 03/08/18 02:15 03/09/18 02:56 Cefazolin Sodium/ Dextrose 50 ml @ 100 mls/hr Q12H IV 03/08/18 14:00 03/09/18 02:46 Lactic Acid (Lac-Hydrin 12% Lotion) 1 applic BID TOPICAL 03/08/18 15:00 03/08/18 21:49 A/P Assessment and Plan Left leg cellulitis with nonhealing ulcer Cultures 24hr no growth ID rec Xray rule out hardware infection DC zosyn, start Ancef IV zbigniew bandage wrap + elevate leg knee Xray - no sign of infection CAD s/p CABG: chronic, stable Diabetes: chronic, stable Sliding scale insulin Hx DVT: Chronic, stable Continue Ena Bolanos March 09, 2018 10:17
--- NOTE | 2018-03-09 10:54 | HHI.PR ---
Subjective Remarks left leg feels better. Objective Vitals heart reg lung cta abd s/nt ext left medial leg...wound with less drainage. erythema and tenderness over leg lower leg much better. still some chronic edema of the lower ext. Vital Signs Date Time Temp Pulse Resp B/P (MAP) Pulse Ox O2 Delivery O2 Flow Rate FiO2 03/09/18 08:00 97.8 72 16 146/72 (96) 95 03/09/18 04:00 98.0 63 19 115/69 (84) 99 03/09/18 00:00 97.6 69 18 119/65 (83) 98 03/08/18 23:00 69 03/08/18 22:00 98.0 62 17 118/60 (79) 97 03/08/18 17:41 66 03/08/18 16:00 98.5 67 17 127/58 (81) 98 03/08/18 12:00 98.1 65 16 144/69 (94) 96 03/08/18 12:00 65 Result Diagram: 03/08/18 0544 03/09/18 0609 Imaging Last 24 hours Impressions Chest X-Ray 03/07/18 1520 Signed Impressions: CONCLUSION: Clear lungs. A/P Problem List: (1) Left leg cellulitis ICD Codes: L03.116 - Cellulitis of left lower limb Status: Acute Plan: 1) left leg cellulitis/purulent wound. pt reports chronic wound x 6 yrs and following vein removal for cabg surgery. 2) recurrent left leg dvt. provoked. 11/29 while on eliquis but in cast immobilizer for fx toes and long car trip. converted to pradaxa by hematology. 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 6) depression 7) ckd 3 Pt started on zosyn yun ED. given vancomycin and developed itch/rash/sob..given epi/steroid/benadryl and nebs ID was consulted and recommending cefazolin and probably keflex on d/c ngtd on wound cx's dc home when ok with ID. cont basal and bolus insulin and titrate as needed. cont her pradaxa for dvt PT eval cont chronic home meds for chf/htn (2) Infected lesion of skin ICD Codes: L08.9 - Local infection of the skin and subcutaneous tissue, unspecified Status: Acute Plan: culture obtained plan as above (3) Diabetes ICD Codes: E11.9 - Type 2 diabetes mellitus without complications Status: Chronic Plan: continue current medications and sliding scale (4) Hypertension ICD Codes: I10 - Essential (primary) hypertension Plan: continue home medications (5) DVT (deep venous thrombosis) ICD Codes: I82.409 - Acute embolism and thrombosis of unspecified deep veins of unspecified lower extremity Plan: on chronic pradaxa Jack López MD March 09, 2018 10:54
--- NOTE | 2018-03-09 12:16 | HHI.IDPN ---
Subjective Subjective Remarks Patient seen and examined on behalf of Dr. Navarrete is a 63-year-old female complains of pain and swelling and redness of left leg and left knee. 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 Patient states that she has increasing redness swelling and discharge from the wound to the medial aspect the left leg for the past 3 days. Patient was seen by her oncologist 3 days ago and given prescription for antibiotics including Keflex and doxycycline. Patient has been taking antibiotic as directed but reports only doing 1 possibly 2 days of antibiotics so far. Patient states that she had increasing redness swelling and discharge from the area despite taking the antibiotics. Patient denies any fever chills. Patient has history of DVT on Pradaxa. Patient also has history of diabetes and hyperlipidemia. In er was started on vancomycin but had reaction requiring nebulizer,steroid treatment will admit for IV antibiotics and ID evaluation and wound care evaluation. Patient reports the lesion first started at site of her bypass grafting site. After this she had her knees replaced and the lesion has acted up off and on but this may be the worst so far. She reports hardware in her knee and no change in ROM of left knee. Patient reports the pain and swelling is what brought her to the ED. ID consulted for evaluation and Mment of left leg cellulitis and ulcer non healing by left knee. Notes reviewed patient reports leg is improving with less redness, drainage and pain no fever no chills no rash no diarrhea afebrile WBC WNL BCX with no growth x 2 days Wound cx with no growth Left knee xray without e/o hardware infx Antibiotics IV Cefazolin Current Medications Medications (Trade) Dose Ordered Sig/Galilea Route Start Time Stop Time Status Last Admin (NS Flush) 2 ml UNSCH PRN IV FLUSH 03/07/18 16:45 (Wellbutrin Xl 24 Hr) 150 mg DAILY PO 03/08/18 09:00 03/09/18 09:54 (Coreg) 6.25 mg BID PO 03/07/18 21:00 03/09/18 09:52 (Pradaxa) 150 mg BID PO 03/07/18 21:00 03/09/18 09:54 (Lasix) 40 mg DAILY PO 03/08/18 09:00 03/09/18 09:53 ([place] 7.5-325 Mg) 1 tab TID PO 03/08/18 09:00 03/09/18 09:54 (NovoLOG INJ) 17 units ACHS SQ 03/07/18 21:00 03/09/18 09:55 (KCl) 20 meq DAILY PO 03/08/18 09:00 03/09/18 09:54 Patient Own Medication PT OWN MED: INSU... TID SQ 03/07/18 19:30 Future Hold (Protonix) 40 mg DAILY PO 03/07/18 19:15 03/09/18 09:52 (Pravachol) 80 mg HS PO 03/07/18 21:00 03/08/18 21:43 (NS Flush) 2 ml UNSCH PRN IV FLUSH 03/07/18 19:00 (NS Flush) 2 ml BID IV FLUSH 03/07/18 21:00 03/09/18 09:56 (Tylenol) 650 mg Q4H PRN PO 03/07/18 19:00 (Restoril) 15 mg HS PRN PO 03/07/18 19:00 03/09/18 02:55 (Narcan Inj) 0.4 mg UNSCH PRN IV PUSH 03/07/18 19:00 (Erma-Colace) 1 tab BID PO 03/07/18 21:00 03/08/18 21:43 (Milk Of Magnesia Liq) 30 ml Q12H PRN PO 03/07/18 19:00 (Senokot) 17.2 mg Q12H PRN PO 03/07/18 19:00 (Dulcolax Supp) 10 mg DAILY PRN RECTAL 03/07/18 19:00 (Lactulose Liq) 30 ml DAILY PRN PO 03/07/18 19:00 (NovoLOG SUPPLEMENTAL SCALE) 1 ACHS SLIDING SCALE SQ 03/07/18 21:00 03/08/18 18:46 (Tylenol) 650 mg Q4H PRN PO 03/08/18 02:15 03/09/18 02:56 Cefazolin Sodium/ Dextrose 50 ml @ 100 mls/hr Q12H IV 03/08/18 14:00 03/09/18 02:46 (Lac-Hydrin 12% Lotion) 1 applic BID TOPICAL 03/08/18 15:00 03/09/18 09:56 Lines PIV with no e/o infection Past Medical History PE, DVT, CAD Quad bypass MS, hyperlipidemia DM, hypertension, GERD, neuropathy (Mickie Carr) Allergies: Coded Allergies: enoxaparin (Verified Allergy, Severe, BLOOD CLOTS, 03/07/18) heparin (porcine) (Verified Allergy, Severe, BLOOD CLOTS, 03/07/18) vancomycin (Verified Allergy, Severe, Shortness of Breath, 03/07/18) redness meperidine (Verified Allergy, Intermediate, HEADACHE, 03/07/18) morphine (Verified Allergy, Intermediate, RASH, 03/07/18) Objective . Vital Signs Date Time Temp Pulse Resp B/P (MAP) Pulse Ox O2 Delivery O2 Flow Rate FiO2 03/09/18 08:00 97.8 72 16 146/72 (96) 95 03/09/18 04:00 98.0 63 19 115/69 (84) 99 03/09/18 00:00 97.6 69 18 119/65 (83) 98 03/08/18 23:00 69 03/08/18 22:00 98.0 62 17 118/60 (79) 97 03/08/18 17:41 66 03/08/18 16:00 98.5 67 17 127/58 (81) 98 . Laboratory Tests Test 03/07/18 15:30 03/08/18 05:44 White Blood Count 8.5 TH/MM3 7.1 TH/MM3 Red Blood Count 4.36 MIL/MM3 4.04 MIL/MM3 Hemoglobin 13.1 GM/DL 12.2 GM/DL Hematocrit 38.4 % 35.8 % Mean Corpuscular Volume 88.0 FL 88.5 FL Mean Corpuscular Hemoglobin 30.0 PG 30.2 PG Mean Corpuscular Hemoglobin Concent 34.1 % 34.1 % Red Cell Distribution Width 13.1 % 13.0 % Platelet Count 310 TH/MM3 295 TH/MM3 Mean Platelet Volume 7.6 FL 7.9 FL Neutrophils (%) (Auto) 71.1 % 88.2 % Lymphocytes (%) (Auto) 18.9 % 10.6 % Monocytes (%) (Auto) 6.4 % 1.0 % Eosinophils (%) (Auto) 3.3 % 0.1 % Basophils (%) (Auto) 0.3 % 0.1 % Neutrophils # (Auto) 6.0 TH/MM3 6.2 TH/MM3 Lymphocytes # (Auto) 1.6 TH/MM3 0.8 TH/MM3 Monocytes # (Auto) 0.5 TH/MM3 0.1 TH/MM3 Eosinophils # (Auto) 0.3 TH/MM3 0.0 TH/MM3 Basophils # (Auto) 0.0 TH/MM3 0.0 TH/MM3 CBC Comment DIFF FINAL DIFF FINAL Differential Comment Laboratory Tests Test 03/07/18 16:20 03/08/18 05:44 03/09/18 06:09 Blood Urea Nitrogen 18 MG/DL 24 MG/DL 26 MG/DL Creatinine 1.24 MG/DL 1.16 MG/DL 1.29 MG/DL Random Glucose 139 MG/DL 275 MG/DL 154 MG/DL Total Protein 6.7 GM/DL Albumin 2.8 GM/DL Calcium Level 8.5 MG/DL 8.3 MG/DL 8.4 MG/DL Alkaline Phosphatase 78 U/L Aspartate Amino Transf (AST/SGOT) 11 U/L Alanine Aminotransferase (ALT/SGPT) 13 U/L Total Bilirubin 0.4 MG/DL Sodium Level 141 MEQ/L 140 MEQ/L 142 MEQ/L Potassium Level 3.9 MEQ/L 4.0 MEQ/L 3.9 MEQ/L Chloride Level 104 MEQ/L 103 MEQ/L 107 MEQ/L Carbon Dioxide Level 30.0 MEQ/L 25.8 MEQ/L 27.4 MEQ/L Anion Gap 7 MEQ/L 11 MEQ/L 8 MEQ/L Estimat Glomerular Filtration Rate 44 ML/MIN 47 ML/MIN 42 ML/MIN Microbiology Date/Time Source Procedure Growth Status 03/07/18 15:30 Blood Peripheral Aerobic Blood Culture - Preliminary NO GROWTH IN 2 DAYS Resulted 03/07/18 15:30 Blood Peripheral Anaerobic Blood Culture - Preliminary NO GROWTH IN 2 DAYS Resulted 03/07/18 15:30 Blood Peripheral Aerobic Blood Culture - Preliminary NO GROWTH IN 2 DAYS Resulted 03/07/18 15:30 Blood Peripheral Anaerobic Blood Culture - Preliminary NO GROWTH IN 2 DAYS Resulted 03/07/18 15:30 Wound Knee Gram Stain - Final Resulted 03/07/18 15:30 Wound Knee Wound Culture - Preliminary NO GROWTH IN 48 HOURS. Resulted Imaging Last Impressions Knee X-Ray 03/08/18 0000 Signed Impressions: CONCLUSION: Left knee arthroplasty without fracture Chest X-Ray 03/07/18 1520 Signed Impressions: CONCLUSION: Clear lungs. Physical Exam GENERAL: This is a well-nourished, well-developed patient, in no apparent distress. Awake and alert. SKIN: No rashes, ecchymoses or lesions. Cool and dry. HEAD: Atraumatic. Normocephalic. No temporal or scalp tenderness. EYES: Pupils equal round and reactive. Extraocular motions intact. No scleral icterus. No injection or drainage. ENT: Nose without bleeding or purulent drainage. Throat without erythema, tonsillar hypertrophy or exudate. Uvula midline. Airway patent. NECK: Trachea midline. Supple, nontender, no meningeal signs. CARDIOVASCULAR: HS audible. RESPIRATORY: Clear to auscultation. Breath sounds equal bilaterally. No wheezes , rales, or rhonchi. GASTROINTESTINAL: Abdomen soft, non-tender, nondistended. MUSCULOSKELETAL: Bilateral LE with lymphedema like chronic changed. Chronic skin changes s/o stasis dermatitis. Chronic skin discoloration left more than right. Left leg with significant swelling, erythema and induration noted wilfred around left knee. A scabbed lesion with opening noted and yellow discharge draining down to the ankle. NEUROLOGICAL: Awake and alert. Cranial nerves II through XII intact. Motor and sensory grossly within normal limits. Nonfocal. Normal speech. Psych cooperative IV line sites with no e.o infection. (Mickie Carr) Assessment & Plan Remarks Left leg cellulitis with left leg medial aspect below knee with non healing ulcer. Imaging without any e/o underlying hardware infection Lymphedema bilateral Chronic venous stasis. CAD s/p CABG Bilateral TKR. Recs Continue IV Ancef Continue EZNY wrap LLE. Keep left leg elevated (Mickie Carr) Remarks The exam, history, and the medical decision-making described in the above note were completed with the assistance of the mid-level provider. I reviewed and agree with the findings presented. I attest that I had a [id number] encounter with the patient on the same day, and personally performed and documented my assessment and findings in the medical record. Wound care probed the wound and yellow discharge oozed. Erythema decreased. morales Herbert: Vascular/Gen Surgery consult : agrees. Likely needs debridement. (Johanna Navarrete MD) Mickie Carr March 09, 2018 12:16 Johanna Navarrete MD March 09, 2018 15:06
--- NOTE | 2018-03-09 14:27 | PD.WCN.NOT ---
Wound Consult Description: Consult for WOUND MANAGEMENT of left knee area per Dr Johns. Communicated with: RN Dr López pageyolette for recommendations Recommendation: Cleanse left medial lower extremity wound with NS and gauze daily. Lightly pack with plain packing strip leaving a tail exposed for removal. Cover with Maxorb II and secure with a dry cover. Date and time dressing. Additional Information: Patient seen on for wound evaluation of left medial leg wound. Wound was open to air and noted with scant clear yellow drainage. Wound was cleansed with NS and gauze. Wound presents as a round plateau measured 2.7cm x 2.5cm with an opening within the elevated wound that was probed straight down to 2.9cm with a sterile Qtip and a measurement of 3.3cm reached with probing towards 12 o'clock indicating a pocket within the wound bed that is not able to be visualized. Periwound is noted with purple denuded peeling skin and 2+ pitting edema and induration circumferentially. Pressure was applied to the periwound resulting in minimal-moderate thick yellow and sanguinous exudate with no odor noted. Wound was cultured for a second time by content writer and communicated to Dr López. Current results of previous wound culture are negative for growth in 48hours. Wound was cleansed with NS and gauze and lightly packed with plain packing strip and covered with Maxorb II and secured with a bordered gauze dressing after prepping periwound with Cavilon skin barrier film. Dressing may be changed daily until cultures result, may need to change packing from plain strip to Iodoform BID. Nini Godoy [facility] March 09, 2018 14:27
--- NOTE | 2018-03-09 16:33 | PD.CAR.PN ---
CVT Progress Note Subjective/Hospital Course: 63-year-old female with infected wound on the medial aspect of the left leg at the level of the knee Patient apparently broke foot recently and for the last 4 days has been draining from this wound This appears to be infected carbuncle possibly deeper infection Will need to be drained to prevent infection of the knee Patient is on Pradaxa so we will take her off Pradaxa for a few days and go to the OR to debride the wound and washed it out Thanks J Objective: Vital Signs Date Time Temp Pulse Resp B/P (MAP) Pulse Ox O2 Delivery O2 Flow Rate FiO2 03/09/18 16:15 58 03/09/18 12:00 98.8 62 17 140/76 (97) 97 03/09/18 08:00 97.8 72 16 146/72 (96) 95 03/09/18 04:00 98.0 63 19 115/69 (84) 99 03/09/18 00:00 97.6 69 18 119/65 (83) 98 03/08/18 23:00 69 03/08/18 22:00 98.0 62 17 118/60 (79) 97 03/08/18 17:41 66 Labs: Laboratory Tests Test 03/09/18 06:09 Blood Urea Nitrogen 26 MG/DL (7-18) Creatinine 1.29 MG/DL (0.50-1.00) Random Glucose 154 MG/DL (74-106) Calcium Level 8.4 MG/DL (8.5-10.1) Sodium Level 142 MEQ/L (136-145) Potassium Level 3.9 MEQ/L (3.5-5.1) Chloride Level 107 MEQ/L (98-107) Carbon Dioxide Level 27.4 MEQ/L (21.0-32.0) Anion Gap 8 MEQ/L (5-15) Estimat Glomerular Filtration Rate 42 ML/MIN (>89) Result Diagram: 03/08/18 0544 03/09/18 0609 Felix Groves MD March 09, 2018 16:33
[2018-03-09] MEDS: PRAVASTATIN SOD 80 MG TAB PO SCH (21:00)
[2018-03-10] VITALS (7 sets, daily range): BP systolic 113–189; BP diastolic 61–84; PULSE 57–68; RESP 18–20; TEMP 97.4–98.1; O2SAT 92–98
[2018-03-10] MEDS: TEMAZEPAM 15 MG CAP PO PRN (00:41)
[2018-03-10] MEDS: ceFAZolin 2 GM PREMIX 50 ML IV SCH ×2 (02:44→13:07)
[2018-03-10] MEDS: INSULIN ASPART 1,000 UNITS/10 ML VIAL SQ SCH ×4 (08:00→22:04)
[2018-03-10] MEDS: LACTIC ACID (AMMONIUM LACTATE) 12% LOTION 225 GM BTL TOPICAL SCH ×2 (09:00→21:58)
[2018-03-10] MEDS: buPROPion HCL 150 MG EXTENDED RELEASE TAB PO SCH (09:00)
[2018-03-10] MEDS: SODIUM CHLORIDE 0.9% FLUSH 10 ML FLUSH IV FLUSH SCH ×2 (09:00→21:56)
[2018-03-10] MEDS: FUROSEMIDE 40 MG TAB PO SCH (09:43)
[2018-03-10] MEDS: PANTOPRAZOLE SOD 40 MG DELAYED RELEASE TAB PO SCH (09:43)
[2018-03-10] MEDS: CARVEDILOL 6.25 MG TAB PO SCH ×2 (09:44→21:53)
[2018-03-10] MEDS: DOCUSATE SODIUM 50 MG/SENNA 8.6 MG TAB PO SCH ×2 (09:44→21:53)
[2018-03-10] MEDS: ACETAMINOPHEN/HYDROcodone 325 MG/7.5 MG TAB PO SCH ×3 (09:44→18:35)
[2018-03-10] MEDS: POTASSIUM CHLORIDE 20 MEQ CONTROLLED RELEASE TAB PO SCH (09:44)
[2018-03-10] MEDS: INSULIN ASPART SUPPLEMENTAL SCALE SQ SCH ×4 (09:47→22:04)
--- NOTE | 2018-03-10 09:48 | PD.PN.STU ---
Subjective Remarks Patient slept well through the night. She is continuing to elevate her leg throughout the day. Denies any changes in her left leg. Wound Care saw her yesterday and found tunneling of the wound with thick yellow exudate. They packed the wound. Surgery was consulted. Pradexa is being held for scheduled surgical debridement tomorrow with Dr. Severino Objective Vitals Vital Signs Date Time Temp Pulse Resp B/P (MAP) Pulse Ox O2 Delivery O2 Flow Rate FiO2 03/10/18 08:13 97.9 64 20 185/84 (117) 93 03/10/18 04:00 97.4 65 20 162/72 (102) 96 03/10/18 00:00 98.0 59 20 138/61 (86) 98 03/09/18 20:00 97.5 59 20 146/68 (94) 97 03/09/18 16:31 56 03/09/18 16:15 58 03/09/18 16:00 97.8 86 16 139/84 (102) 90 03/09/18 12:00 98.8 62 17 140/76 (97) 97 I/O 03/09/18 03/09/18 03/09/18 03/10/18 03/10/18 03/10/18 07:00 15:00 23:00 07:00 15:00 23:00 Intake Total 800 ml 360 ml Balance 800 ml 360 ml Intake Oral 800 ml 360 ml # Voids 3 3 # Bowel Movements 0 Result Diagram: 03/08/18 0544 03/09/18 0609 Objective Remarks NAD ZENY bandage on leg. Wound is covered with bandage. No sign of drainage through the bandage. Left leg continues to be red and mildly swollen. No pain with palpation of the leg. A/P Assessment and Plan Left leg cellulitis with nonhealing ulcer No sign of bone infection Pending new cultures taken 03/09 Continue Ancef IV Surgical debridement scheduled for tomorrow Pradexa being held CAD s/p CABG: chronic, stable Diabetes: chronic, stable Sliding scale insulin Hx DVT: Chronic, stable Pradexa being held, will start again after procedure HTN: Chronic, uncontrolled Coreg BID continue to monitor Ena Meza March 10, 2018 09:48
--- NOTE | 2018-03-10 11:01 | HHI.PR ---
Subjective Remarks no new problems present Objective Vitals heart reg lung cta abd s/nt ext left inner knee wound bandaged lower ext erythema near atkins lower ext edema again noted. Vital Signs Date Time Temp Pulse Resp B/P (MAP) Pulse Ox O2 Delivery O2 Flow Rate FiO2 03/10/18 08:13 97.9 64 20 185/84 (117) 93 03/10/18 04:00 97.4 65 20 162/72 (102) 96 03/10/18 00:00 98.0 59 20 138/61 (86) 98 03/09/18 20:00 97.5 59 20 146/68 (94) 97 03/09/18 16:31 56 03/09/18 16:15 58 03/09/18 16:00 97.8 86 16 139/84 (102) 90 03/09/18 12:00 98.8 62 17 140/76 (97) 97 Result Diagram: 03/08/18 0544 03/09/18 0609 Imaging Last 24 hours Impressions Chest X-Ray 03/07/18 1520 Signed Impressions: CONCLUSION: Clear lungs. A/P Problem List: (1) Left leg cellulitis ICD Codes: L03.116 - Cellulitis of left lower limb Status: Acute Plan: 1) left leg cellulitis/purulent wound. pt reports chronic wound x 6 yrs and following vein removal for cabg surgery. 2) recurrent left leg dvt. provoked. 11/29 while on eliquis but in cast immobilizer for fx toes and long car trip. converted to pradaxa by hematology. 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 6) depression 7) ckd 3 Pt started on zosyn yun ED. given vancomycin and developed itch/rash/sob..given epi/steroid/benadryl and nebs ID was consulted and recommending cefazolin ngtd on wound cx's wound opened up and drained on 03/09. noted to be tunneling. DR Charles was consulted and will take her to OR tomorrow to irrigate the wound and do everything to prevent involvement of her tka. her pradaxa was held cont basal and bolus insulin and titrate as needed. PT eval cont chronic home meds for chf/htn (2) Infected lesion of skin ICD Codes: L08.9 - Local infection of the skin and subcutaneous tissue, unspecified Status: Acute Plan: culture obtained plan as above (3) Diabetes ICD Codes: E11.9 - Type 2 diabetes mellitus without complications Status: Chronic Plan: continue current medications and sliding scale (4) Hypertension ICD Codes: I10 - Essential (primary) hypertension Plan: continue home medications (5) DVT (deep venous thrombosis) ICD Codes: I82.409 - Acute embolism and thrombosis of unspecified deep veins of unspecified lower extremity Plan: on chronic pradaxa Jack López MD March 10, 2018 11:01
--- NOTE | 2018-03-10 11:21 | HHI.IDPN ---
Subjective Subjective Remarks Patient seen and examined on behalf of Dr. Navarrete is a 63-year-old female complains of pain and swelling and redness of left leg and left knee. 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 Patient states that she has increasing redness swelling and discharge from the wound to the medial aspect the left leg for the past 3 days. Patient was seen by her oncologist 3 days ago and given prescription for antibiotics including Keflex and doxycycline. Patient has been taking antibiotic as directed but reports only doing 1 possibly 2 days of antibiotics so far. Patient states that she had increasing redness swelling and discharge from the area despite taking the antibiotics. Patient denies any fever chills. Patient has history of DVT on Pradaxa. Patient also has history of diabetes and hyperlipidemia. In er was started on vancomycin but had reaction requiring nebulizer,steroid treatment will admit for IV antibiotics and ID evaluation and wound care evaluation. Patient reports the lesion first started at site of her bypass grafting site. After this she had her knees replaced and the lesion has acted up off and on but this may be the worst so far. She reports hardware in her knee and no change in ROM of left knee. Patient reports the pain and swelling is what brought her to the ED. ID consulted for evaluation and Mment of left leg cellulitis and ulcer non healing by left knee. Notes reviewed patient reports good nights sleep leg wound still with yellowish drainage no new complaints no fever no chills no rash no diarrhea afebrile WBC WNL 03/08 BCX with no growth x 3 days Wound cx with no growth, repeat wound cx pending Left knee xray without e/o hardware infx Antibiotics IV Cefazolin Current Medications Medications (Trade) Dose Ordered Sig/Galilea Route Start Time Stop Time Status Last Admin (NS Flush) 2 ml UNSCH PRN IV FLUSH 03/07/18 16:45 (Wellbutrin Xl 24 Hr) 150 mg DAILY PO 03/08/18 09:00 03/09/18 09:54 (Coreg) 6.25 mg BID PO 03/07/18 21:00 03/10/18 09:44 (Pradaxa) 150 mg BID PO 03/07/18 21:00 Future Hold 03/09/18 09:54 (Lasix) 40 mg DAILY PO 03/08/18 09:00 03/10/18 09:43 ([place] 7.5-325 Mg) 1 tab TID PO 03/08/18 09:00 03/10/18 09:44 (NovoLOG INJ) 17 units ACHS SQ 03/07/18 21:00 03/09/18 18:50 (KCl) 20 meq DAILY PO 03/08/18 09:00 03/10/18 09:44 Patient Own Medication PT OWN MED: INSU... TID SQ 03/07/18 19:30 Future Hold (Protonix) 40 mg DAILY PO 03/07/18 19:15 03/10/18 09:43 (Pravachol) 80 mg HS PO 03/07/18 21:00 03/09/18 21:00 (NS Flush) 2 ml UNSCH PRN IV FLUSH 03/07/18 19:00 (NS Flush) 2 ml BID IV FLUSH 03/07/18 21:00 03/10/18 09:00 (Tylenol) 650 mg Q4H PRN PO 03/07/18 19:00 (Restoril) 15 mg HS PRN PO 03/07/18 19:00 03/10/18 00:41 (Narcan Inj) 0.4 mg UNSCH PRN IV PUSH 03/07/18 19:00 (Erma-Colace) 1 tab BID PO 03/07/18 21:00 03/10/18 09:44 (Milk Of Magnesia Liq) 30 ml Q12H PRN PO 03/07/18 19:00 (Senokot) 17.2 mg Q12H PRN PO 03/07/18 19:00 (Dulcolax Supp) 10 mg DAILY PRN RECTAL 03/07/18 19:00 (Lactulose Liq) 30 ml DAILY PRN PO 03/07/18 19:00 (NovoLOG SUPPLEMENTAL SCALE) 1 ACHS SLIDING SCALE SQ 03/07/18 21:00 03/10/18 09:47 (Tylenol) 650 mg Q4H PRN PO 03/08/18 02:15 03/09/18 02:56 Cefazolin Sodium/ Dextrose 50 ml @ 100 mls/hr Q12H IV 03/08/18 14:00 03/10/18 02:44 (Lac-Hydrin 12% Lotion) 1 applic BID TOPICAL 03/08/18 15:00 03/10/18 09:00 Lines PIV with no e/o infection Past Medical History PE, DVT, CAD Quad bypass [place], hyperlipidemia DM, hypertension, GERD, neuropathy (Mickie Carr) Allergies: Coded Allergies: enoxaparin (Verified Allergy, Severe, BLOOD CLOTS, 03/07/18) heparin (porcine) (Verified Allergy, Severe, BLOOD CLOTS, 03/07/18) vancomycin (Verified Allergy, Severe, Shortness of Breath, 03/07/18) redness meperidine (Verified Allergy, Intermediate, HEADACHE, 03/07/18) morphine (Verified Allergy, Intermediate, RASH, 03/07/18) Objective . Vital Signs Date Time Temp Pulse Resp B/P (MAP) Pulse Ox O2 Delivery O2 Flow Rate FiO2 03/10/18 08:13 97.9 64 20 185/84 (117) 93 03/10/18 04:00 97.4 65 20 162/72 (102) 96 03/10/18 00:00 98.0 59 20 138/61 (86) 98 03/09/18 20:00 97.5 59 20 146/68 (94) 97 03/09/18 16:31 56 03/09/18 16:15 58 03/09/18 16:00 97.8 86 16 139/84 (102) 90 03/09/18 12:00 98.8 62 17 140/76 (97) 97 . Laboratory Tests Test 03/09/18 06:09 Blood Urea Nitrogen 26 MG/DL Creatinine 1.29 MG/DL Random Glucose 154 MG/DL Calcium Level 8.4 MG/DL Sodium Level 142 MEQ/L Potassium Level 3.9 MEQ/L Chloride Level 107 MEQ/L Carbon Dioxide Level 27.4 MEQ/L Anion Gap 8 MEQ/L Estimat Glomerular Filtration Rate 42 ML/MIN Microbiology Date/Time Source Procedure Growth Status 03/07/18 15:30 Blood Peripheral Aerobic Blood Culture - Preliminary NO GROWTH IN 3 DAYS Resulted 03/07/18 15:30 Blood Peripheral Anaerobic Blood Culture - Preliminary NO GROWTH IN 3 DAYS Resulted 03/07/18 15:30 Blood Peripheral Aerobic Blood Culture - Preliminary NO GROWTH IN 3 DAYS Resulted 03/07/18 15:30 Blood Peripheral Anaerobic Blood Culture - Preliminary NO GROWTH IN 3 DAYS Resulted 03/09/18 13:17 Wound Leg Gram Stain - Final Resulted 03/09/18 13:17 Wound Leg Wound Culture Pending Resulted 03/07/18 15:30 Wound Knee Gram Stain - Final Resulted 03/07/18 15:30 Wound Knee Wound Culture - Preliminary NO GROWTH IN 48 HOURS. Resulted Imaging Last Impressions Knee X-Ray 03/08/18 0000 Signed Impressions: CONCLUSION: Left knee arthroplasty without fracture Chest X-Ray 03/07/18 1520 Signed Impressions: CONCLUSION: Clear lungs. Physical Exam GENERAL: This is a well-nourished, well-developed patient, in no apparent distress. Awake and alert. Sitting up in bed. SKIN: No rashes, ecchymoses or lesions. Cool and dry. HEAD: Atraumatic. Normocephalic. No temporal or scalp tenderness. EYES: Pupils equal round and reactive. Extraocular motions intact. No scleral icterus. No injection or drainage. ENT: Nose without bleeding or purulent drainage. Throat without erythema, tonsillar hypertrophy or exudate. Uvula midline. Airway patent. NECK: Trachea midline. Supple, nontender, no meningeal signs. CARDIOVASCULAR: HS audible. RESPIRATORY: Clear to auscultation. Breath sounds equal bilaterally. No wheezes , rales, or rhonchi. GASTROINTESTINAL: Abdomen soft, non-tender, nondistended. MUSCULOSKELETAL: Bilateral LE with lymphedema like chronic changed. Chronic skin changes s/o stasis dermatitis. Chronic skin discoloration left more than right. Left leg with significant swelling, erythema and induration noted wilfred around left knee, improving with less induration and erythema. +warm to touch. Open wound + yellowish drainage. NEUROLOGICAL: Awake and alert. Cranial nerves II through XII intact. Motor and sensory grossly within normal limits. Nonfocal. Normal speech. Psych cooperative IV line sites with no e.o infection. (Mickie Carr) Assessment & Plan Remarks Left leg cellulitis with left leg medial aspect below knee with non healing ulcer. Imaging without any e/o underlying hardware infection -Evaluated by Dr. Groves possibly infected carbuncle and/or deeper infx. To the OR on . Lymphedema bilateral Chronic venous stasis. CAD s/p CABG Bilateral TKR. Recs Continue IV Ancef Continue ZENY wrap LLE. Keep left leg elevated. Will follow up on intraop cultures once obtained and discuss further with Dr. Jazarevic intraop findings (Mickie Carr) Remarks The exam, history, and the medical decision-making described in the above note were completed with the assistance of the mid-level provider. I reviewed and agree with the findings presented. I attest that I had a [id number] encounter with the patient on the same day, and personally performed and documented my assessment and findings in the medical record. Left leg cellulitis improved. Abscess still with induration surrounding it. Cultures reviewed: normal suresh so far. Will follow next after surgical cultures available. Cultures entered in [facility] please send 3 swabs. (Johanna Navarrete MD) Mickie Carr March 10, 2018 11:21 Johanna Navarrete MD March 10, 2018 17:34
--- NOTE | 2018-03-10 15:31 | PD.CAR.PN ---
CVT Progress Note Subjective/Hospital Course: 63-year-old female with infected wound on the medial aspect of the left leg at the level of the knee Patient apparently broke foot recently and for the last 4 days has been draining from this wound This appears to be infected carbuncle possibly deeper infection Will need to be drained to prevent infection of the knee Patient is on Pradaxa so we will take her off Pradaxa for a few days and go to the OR to debride the wound and washed it out Thanks Araceli 03/10/2018 Patient scheduled for debridement of the left thigh wound tomorrow Objective: Vital Signs Date Time Temp Pulse Resp B/P (MAP) Pulse Ox O2 Delivery O2 Flow Rate FiO2 03/10/18 12:36 98.0 61 20 150/71 (97) 92 03/10/18 08:13 97.9 64 20 185/84 (117) 93 03/10/18 04:00 97.4 65 20 162/72 (102) 96 03/10/18 00:00 98.0 59 20 138/61 (86) 98 03/09/18 20:00 97.5 59 20 146/68 (94) 97 03/09/18 16:31 56 03/09/18 16:15 58 03/09/18 16:00 97.8 86 16 139/84 (102) 90 Result Diagram: 03/08/18 0544 03/09/18 0609 Felix Groves MD March 10, 2018 15:31
[2018-03-10] MEDS: PRAVASTATIN SOD 80 MG TAB PO SCH (21:53)
[2018-03-11] VITALS (7 sets, daily range): BP systolic 117–177; BP diastolic 60–82; PULSE 59–72; RESP 18–20; TEMP 97.3–98.3; O2SAT 92–96
[2018-03-11] MEDS: TEMAZEPAM 15 MG CAP PO PRN ×2 (00:09→21:57)
[2018-03-11] MEDS: ceFAZolin 2 GM PREMIX 50 ML IV SCH ×2 (01:50→13:40)
[2018-03-11 05:24] LABS: BICARBONATE 26.6 MEQ/L (21.0-32.0); CALCIUM 8.3 MG/DL (8.5-10.1); CREATININE 1.05 MG/DL (0.50-1.00)
[2018-03-11] MEDS: INSULIN ASPART SUPPLEMENTAL SCALE SQ SCH ×4 (08:00→20:19)
[2018-03-11] MEDS: INSULIN ASPART 1,000 UNITS/10 ML VIAL SQ SCH ×4 (08:00→20:19)
[2018-03-11] MEDS: LACTIC ACID (AMMONIUM LACTATE) 12% LOTION 225 GM BTL TOPICAL SCH ×2 (09:00→20:26)
[2018-03-11] MEDS: SODIUM CHLORIDE 0.9% FLUSH 10 ML FLUSH IV FLUSH SCH ×2 (09:32→20:06)
[2018-03-11] MEDS: buPROPion HCL 150 MG EXTENDED RELEASE TAB PO SCH (09:33)
[2018-03-11] MEDS: FUROSEMIDE 40 MG TAB PO SCH (09:33)
[2018-03-11] MEDS: PANTOPRAZOLE SOD 40 MG DELAYED RELEASE TAB PO SCH (09:33)
[2018-03-11] MEDS: POTASSIUM CHLORIDE 20 MEQ CONTROLLED RELEASE TAB PO SCH (09:33)
[2018-03-11] MEDS: DOCUSATE SODIUM 50 MG/SENNA 8.6 MG TAB PO SCH ×2 (09:33→20:06)
[2018-03-11] MEDS: CARVEDILOL 6.25 MG TAB PO SCH ×2 (09:34→20:06)
[2018-03-11] MEDS: ACETAMINOPHEN/HYDROcodone 325 MG/7.5 MG TAB PO SCH ×3 (09:34→18:40)
--- NOTE | 2018-03-11 10:20 | HHI.PR ---
Subjective Remarks getting ready to be transported down to OR. Objective Vitals nad. lying on bed Vital Signs Date Time Temp Pulse Resp B/P (MAP) Pulse Ox O2 Delivery O2 Flow Rate FiO2 03/11/18 07:38 98.3 69 20 168/79 (108) 92 03/11/18 04:30 65 03/11/18 04:00 97.9 68 18 177/82 (113) 96 03/11/18 00:30 59 03/11/18 00:00 97.3 61 18 138/60 (86) 94 03/10/18 20:30 65 03/10/18 20:00 98.1 68 18 189/77 (114) 95 03/10/18 16:29 97.4 57 20 113/83 (93) 96 03/10/18 12:36 98.0 61 20 150/71 (97) 92 Result Diagram: 03/08/18 0544 03/11/18 0445 Imaging Last 24 hours Impressions Chest X-Ray 03/07/18 1520 Signed Impressions: CONCLUSION: Clear lungs. A/P Problem List: (1) Left leg cellulitis ICD Codes: L03.116 - Cellulitis of left lower limb Status: Acute Plan: 1) left leg cellulitis/purulent wound. pt reports chronic wound x 6 yrs and following vein removal for cabg surgery. 2) recurrent left leg dvt. provoked. 11/29 while on eliquis but in cast immobilizer for fx toes and long car trip. converted to pradaxa by hematology. 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 6) depression 7) ckd 3 Pt started on zosyn yun ED. given vancomycin and developed itch/rash/sob..given epi/steroid/benadryl and nebs ID was consulted and recommending cefazolin ngtd on wound cx's wound opened up and drained on 03/09. noted to be tunneling. DR Charles was consulted and will take her to OR today to irrigate the wound and do everything to prevent involvement of her tka. her pradaxa was held cont basal and bolus insulin and titrate as needed. PT eval cont chronic home meds for chf/htn (2) Infected lesion of skin ICD Codes: L08.9 - Local infection of the skin and subcutaneous tissue, unspecified Status: Acute Plan: culture obtained plan as above (3) Diabetes ICD Codes: E11.9 - Type 2 diabetes mellitus without complications Status: Chronic Plan: continue current medications and sliding scale (4) Hypertension ICD Codes: I10 - Essential (primary) hypertension Plan: continue home medications (5) DVT (deep venous thrombosis) ICD Codes: I82.409 - Acute embolism and thrombosis of unspecified deep veins of unspecified lower extremity Plan: on chronic pradaxa Jack López MD March 11, 2018 10:20
[2018-03-11] MEDS ORDERED: LIDOCAINE HCL 1% PF 5 ML SYRINGE OTHER ONE (12:00)
[2018-03-11] MEDS ORDERED: PROPOFOL 200 MG/20 ML AMP IV ONE (12:00)
[2018-03-11] MEDS ORDERED: PHENYLEPH/NS 1000 MCG/10 ML SYR IV ONE (12:00)
[2018-03-11] MEDS ORDERED: ONDANSETRON HCL 4 MG/2 ML VIAL IV ONE (12:00)
--- NOTE | 2018-03-11 14:42 | EKG ---
Date Performed: 03/11/2018 Time Performed: 10:53:47 PTAGE: 63 years EKG: Sinus rhythm Nonspecific ST and T wave abnormalities, consider anteroseptal ischemia PREVIOUS TRACING : 02/27/2018 10.10 DOCTOR: Eliseo Mascorro Interpretating Date/Time 03/11/2018 14:41:53
[2018-03-11] MEDS ORDERED: *HYDROmorphone PF 0.5 MG/0.5 ML PERIprocedure ONLY ONE ×3 (14:47→15:04)
[2018-03-11] MEDS ORDERED: DO NOT ADM ANY ANTICOAGULANT DRUGS PRN (15:15)
--- NOTE | 2018-03-11 16:46 | MP ---
cc: Felix Groves MD DATE OF OPERATION: 03/11/2018 DATE OF SURGERY: 03/11/2019 PREOPERATIVE DIAGNOSIS: Infected tissue left knee area. POSTOPERATIVE DIAGNOSES: 1. Infected tissue left knee area. 2. Infected lymphatic cyst. OPERATIVE PROCEDURE: Excision of the infected tissue, down through the muscle fascia and excision of this infected looking cyst. SURGEON: MD Germain ANESTHESIA: General. ESTIMATED BLOOD LOSS: About 200 mL. OPERATIVE PROCEDURE: The patient is prepped and draped in usual fashion, and the area exposed. The patient has a large infected area measuring about 1-1/2 inches in diameter, which is just below the level of the knee on the medial calf. The area is draining. With a 15 blade, incision is made in an oblique oval fashion around this tissue and deepened down to the branches of saphenous vein. The saphenous veins are bleeding and these are ligated with a [id number] 2-0 Vicryls. Now, the incision is deepened another 1-1/2 inches or so. The patient has very obese legs and the tissue consists of granulation, infected tissue plus some of the degenerated lipofibrotic fat due to organized edema. All this is removed. Tissue sent for cultures and for pathology. Once we get deeper and more inferior, the patient has a large cyst measuring about 3 inches in diameter filled with serous-appearing lymphatic fluid, almost like a lymphocele. This cyst is unroofed and then the cyst wall is removed and sent for pathology. The area is irrigated with copious amounts of saline, meticulous hemostasis obtained with 2-0 Vicryl stick ties and cautery and then areas packed with Betadine-soaked vaginal packing. Dressing is applied. The patient tolerates the procedure well. MD LUPE Menon/ALFONZO , 04:15 PM , 04:46 PM
[2018-03-11] MEDS: PRAVASTATIN SOD 80 MG TAB PO SCH (20:06)
[2018-03-11] MEDS ORDERED: PROMETHAZINE HCL 25 MG TAB PO PRN (20:45)
[2018-03-11] MEDS: ONDANSETRON ODT 4 MG TAB PO PRN (21:57)
[2018-03-11] MEDS: ACETAMINOPHEN 325 MG TAB PO PRN (22:03)
[2018-03-12] VITALS (8 sets, daily range): BP systolic 125–161; BP diastolic 65–75; PULSE 57–79; RESP 17–18; TEMP 97.5–98.4; O2SAT 65–95
[2018-03-12] MEDS: ceFAZolin 2 GM PREMIX 50 ML IV SCH ×2 (02:47→13:34)
[2018-03-12] MEDS: INSULIN ASPART 1,000 UNITS/10 ML VIAL SQ SCH ×4 (08:00→22:01)
[2018-03-12] MEDS: INSULIN ASPART SUPPLEMENTAL SCALE SQ SCH ×4 (08:00→22:01)
--- NOTE | 2018-03-12 08:05 | HHI.IDPN ---
Subjective Subjective Remarks Patient seen and examined on behalf of Dr. Navarrete is a 63-year-old female complains of pain and swelling and redness of left leg and left knee. 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 Patient states that she has increasing redness swelling and discharge from the wound to the medial aspect the left leg for the past 3 days. Patient was seen by her oncologist 3 days ago and given prescription for antibiotics including Keflex and doxycycline. Patient has been taking antibiotic as directed but reports only doing 1 possibly 2 days of antibiotics so far. Patient states that she had increasing redness swelling and discharge from the area despite taking the antibiotics. Patient denies any fever chills. Patient has history of DVT on Pradaxa. Patient also has history of diabetes and hyperlipidemia. In er was started on vancomycin but had reaction requiring nebulizer,steroid treatment will admit for IV antibiotics and ID evaluation and wound care evaluation. Patient reports the lesion first started at site of her bypass grafting site. After this she had her knees replaced and the lesion has acted up off and on but this may be the worst so far. She reports hardware in her knee and no change in ROM of left knee. Patient reports the pain and swelling is what brought her to the ED. ID consulted for evaluation and Mment of left leg cellulitis and ulcer non healing by left knee. Notes reviewed s/p I&D left knee infected tissue/cyst by Dr. Groves 03/11 - per his notes, extending down through the muscle fascia no fever no chills no rash no diarrhea afebrile WBC WNL 03/08 BCX with no growth x 4 days Wound cx with no growth, repeat wound cx GNR Left knee xray without e/o hardware infx Await intraop wound cx Antibiotics IV Cefazolin Current Medications Medications (Trade) Dose Ordered Sig/Galilea Route Start Time Stop Time Status Last Admin (Wellbutrin Xl 24 Hr) 150 mg DAILY PO 03/08/18 09:00 03/11/18 09:33 (Coreg) 6.25 mg BID PO 03/07/18 21:00 03/11/18 20:06 (Pradaxa) 150 mg BID PO 03/07/18 21:00 Future Hold 03/09/18 09:54 (Lasix) 40 mg DAILY PO 03/08/18 09:00 03/11/18 09:33 ([place] 7.5-325 Mg) 1 tab TID PO 03/08/18 09:00 03/11/18 18:40 (NovoLOG INJ) 17 units ACHS SQ 03/07/18 21:00 03/10/18 22:04 (KCl) 20 meq DAILY PO 03/08/18 09:00 03/11/18 09:33 Patient Own Medication PT OWN MED: INSU... TID SQ 03/07/18 19:30 Future Hold (Protonix) 40 mg DAILY PO 03/07/18 19:15 03/11/18 09:33 (Pravachol) 80 mg HS PO 03/07/18 21:00 03/11/18 20:06 (NS Flush) 2 ml UNSCH PRN IV FLUSH 03/07/18 19:00 (NS Flush) 2 ml BID IV FLUSH 03/07/18 21:00 03/11/18 20:06 (Tylenol) 650 mg Q4H PRN PO 03/07/18 19:00 (Restoril) 15 mg HS PRN PO 03/07/18 19:00 03/11/18 21:57 (Narcan Inj) 0.4 mg UNSCH PRN IV PUSH 03/07/18 19:00 (Erma-Colace) 1 tab BID PO 03/07/18 21:00 03/11/18 20:06 (Milk Of Magnesia Liq) 30 ml Q12H PRN PO 03/07/18 19:00 (Senokot) 17.2 mg Q12H PRN PO 03/07/18 19:00 (Dulcolax Supp) 10 mg DAILY PRN RECTAL 03/07/18 19:00 (Lactulose Liq) 30 ml DAILY PRN PO 03/07/18 19:00 (NovoLOG SUPPLEMENTAL SCALE) 1 ACHS SLIDING SCALE SQ 03/07/18 21:00 03/10/18 22:04 (Tylenol) 650 mg Q4H PRN PO 03/08/18 02:15 03/11/18 22:03 Cefazolin Sodium/ Dextrose 50 ml @ 100 mls/hr Q12H IV 03/08/18 14:00 03/12/18 02:47 (Lac-Hydrin 12% Lotion) 1 applic BID TOPICAL 03/08/18 15:00 03/11/18 20:26 ([facility] [place] [facility]) ALL NURSING DEPARTME... UNSCH PRN .XX 03/11/18 15:15 03/12/18 15:14 (Zofran Odt) 4 mg Q4H PRN PO 03/11/18 20:45 03/11/18 21:57 (Phenergan) 25 mg Q4H PRN PO 03/11/18 20:45 Lines PIV with no e/o infection Past Medical History PE, DVT, CAD Quad bypass [place], hyperlipidemia DM, hypertension, GERD, neuropathy (Mickie Carr) Allergies: Coded Allergies: enoxaparin (Verified Allergy, Severe, BLOOD CLOTS, 03/07/18) heparin (porcine) (Verified Allergy, Severe, BLOOD CLOTS, 03/07/18) vancomycin (Verified Allergy, Severe, Shortness of Breath, 03/07/18) redness meperidine (Verified Allergy, Intermediate, HEADACHE, 03/07/18) morphine (Verified Allergy, Intermediate, RASH, 03/07/18) Objective . Vital Signs Date Time Temp Pulse Resp B/P (MAP) Pulse Ox O2 Delivery O2 Flow Rate FiO2 03/12/18 04:30 57 03/12/18 04:00 97.5 60 18 143/65 (91) 95 03/12/18 02:57 95 21 03/12/18 00:00 98.4 75 18 125/70 (88) 94 03/11/18 20:00 98.0 65 18 117/69 (85) 95 03/11/18 16:11 97.7 72 20 128/75 (92) 92 03/11/18 15:15 71 16 149/63 (91) 96 Nasal Cannula 2 03/11/18 15:00 69 16 150/72 (98) 95 Nasal Cannula 2 03/11/18 14:45 78 16 158/80 (106) 97 Nasal Cannula 2 03/11/18 14:35 98.5 80 16 165/97 (119) 98 Nasal Cannula 2 . Laboratory Tests Test 03/11/18 04:45 Blood Urea Nitrogen 23 MG/DL Creatinine 1.05 MG/DL Random Glucose 119 MG/DL Calcium Level 8.3 MG/DL Sodium Level 143 MEQ/L Potassium Level 3.7 MEQ/L Chloride Level 106 MEQ/L Carbon Dioxide Level 26.6 MEQ/L Anion Gap 10 MEQ/L Estimat Glomerular Filtration Rate 53 ML/MIN Microbiology Date/Time Source Procedure Growth Status 03/11/18 14:18 Wound Leg Fungal Smear Pending Received 03/11/18 14:18 Wound Leg Fungal Culture Pending Received 03/11/18 14:18 Wound Leg Acid Fast Stain Pending Received 03/11/18 14:18 Wound Leg Mycobacterial Culture Pending Received 03/11/18 14:18 Wound Leg Gram Stain Pending Received 03/11/18 14:18 Wound Leg Wound Culture Pending Received 03/09/18 13:17 Wound Leg Gram Stain - Final Resulted 03/09/18 13:17 Wound Leg Wound Culture - Preliminary Resulted Imaging Last Impressions Knee X-Ray 03/08/18 0000 Signed Impressions: CONCLUSION: Left knee arthroplasty without fracture Chest X-Ray 03/07/18 1520 Signed Impressions: CONCLUSION: Clear lungs. Physical Exam GENERAL: This is a well-nourished, well-developed patient, in no apparent distress. Awake and alert. Lying in bed. SKIN: No rashes, ecchymoses or lesions. Cool and dry. HEAD: Atraumatic. Normocephalic. No temporal or scalp tenderness. EYES: Pupils equal round and reactive. Extraocular motions intact. No scleral icterus. No injection or drainage. ENT: Nose without bleeding or purulent drainage. Throat without erythema, tonsillar hypertrophy or exudate. Uvula midline. Airway patent. NECK: Trachea midline. Supple, nontender, no meningeal signs. CARDIOVASCULAR: HS audible. RESPIRATORY: Clear to auscultation. Breath sounds equal bilaterally. No wheezes , rales, or rhonchi. GASTROINTESTINAL: Abdomen soft, non-tender, nondistended. MUSCULOSKELETAL: Bilateral LE with lymphedema like chronic changed. Chronic skin changes s/o stasis dermatitis. Chronic skin discoloration left more than right. Left leg s/p I&D, in postop dressing that is saturated with serosanguineous fluid, did not remove dressing. Increased erythema over left lower leg below zeny wrap extending to ankle. NEUROLOGICAL: Awake and alert. Cranial nerves II through XII intact. Motor and sensory grossly within normal limits. Nonfocal. Normal speech. Psych cooperative IV line sites with no e.o infection. (Mickie Carr) Assessment & Plan Remarks Left leg cellulitis with left leg medial aspect below knee with non healing ulcer. Imaging without any e/o underlying hardware infection Left leg infected lymphatic cyst -s/p excision of the infected tissue, down through the muscle fascia and excision of this infected looking cyst by Dr. Groves 03/11 Lymphedema bilateral Chronic venous stasis CAD s/p CABG Bilateral TKR. Recs Continue IV Ancef Continue ZENY wrap LLE. Keep left leg elevated. Will follow up on intraop cultures until finalized Monitor clinically (Mickie Carr) Remarks The exam, history, and the medical decision-making described in the above note were completed with the assistance of the mid-level provider. I reviewed and agree with the findings presented. I attest that I had a [id number] encounter with the patient on the same day, and personally performed and documented my assessment and findings in the medical record. Per review of Dr.J bowden it appears this is an infected lymphocoele cyst. May need wound vac on Thursday. Cx intra op no growth. dw patient and spouse cultures could be negative due to patient being on antibiotics prior to procedure. Continue Ancef IV for now. Follow cultures Will follow next on Thursday if any interim needs I am clinical transformation specialist this weekend please call me. (Johanna Navarrete MD) Mickie Carr Mar 12, 2018 08:05 Johanna Navarrete MD Mar 12, 2018 17:53
[2018-03-12] MEDS: ACETAMINOPHEN/HYDROcodone 325 MG/7.5 MG TAB PO SCH ×3 (09:20→18:00)
[2018-03-12] MEDS: DOCUSATE SODIUM 50 MG/SENNA 8.6 MG TAB PO SCH ×2 (09:20→21:48)
[2018-03-12] MEDS: FUROSEMIDE 40 MG TAB PO SCH (09:20)
[2018-03-12] MEDS: PANTOPRAZOLE SOD 40 MG DELAYED RELEASE TAB PO SCH (09:20)
[2018-03-12] MEDS: CARVEDILOL 6.25 MG TAB PO SCH ×2 (09:20→21:48)
[2018-03-12] MEDS: POTASSIUM CHLORIDE 20 MEQ CONTROLLED RELEASE TAB PO SCH (09:20)
[2018-03-12] MEDS: buPROPion HCL 150 MG EXTENDED RELEASE TAB PO SCH ×2 (09:20→09:39)
[2018-03-12] MEDS: SODIUM CHLORIDE 0.9% FLUSH 10 ML FLUSH IV FLUSH SCH ×2 (09:21→21:45)
[2018-03-12] MEDS: LACTIC ACID (AMMONIUM LACTATE) 12% LOTION 225 GM BTL TOPICAL SCH ×2 (09:22→21:52)
[2018-03-12] MEDS ORDERED: DABIGATRAN ETEXILATE 150 MG CAP PO ONE (10:30)
--- NOTE | 2018-03-12 10:54 | HHI.PR ---
Subjective Remarks no new complaints Objective Vitals heart reg lung cta abd s/nt ext left leg wrapped Vital Signs Date Time Temp Pulse Resp B/P (MAP) Pulse Ox O2 Delivery O2 Flow Rate FiO2 03/12/18 08:00 97.9 66 18 149/68 (95) 94 03/12/18 04:30 57 03/12/18 04:00 97.5 60 18 143/65 (91) 95 03/12/18 02:57 95 21 03/12/18 00:00 98.4 75 18 125/70 (88) 94 03/11/18 20:00 98.0 65 18 117/69 (85) 95 03/11/18 16:11 97.7 72 20 128/75 (92) 92 03/11/18 15:15 71 16 149/63 (91) 96 Nasal Cannula 2 03/11/18 15:00 69 16 150/72 (98) 95 Nasal Cannula 2 03/11/18 14:45 78 16 158/80 (106) 97 Nasal Cannula 2 03/11/18 14:35 98.5 80 16 165/97 (119) 98 Nasal Cannula 2 Result Diagram: 03/08/18 0544 03/11/18 0445 Imaging Last 24 hours Impressions Chest X-Ray 03/07/18 1520 Signed Impressions: CONCLUSION: Clear lungs. A/P Problem List: (1) Left leg cellulitis ICD Codes: L03.116 - Cellulitis of left lower limb Status: Acute Plan: 1) left leg cellulitis/purulent wound. pt reports chronic wound x 6 yrs and following vein removal for cabg surgery. 03/11 left leg surgery: 1. Infected tissue left knee area. Infected lymphatic cyst. Excision of the infected tissue, down through the muscle fascia and excision of this infected looking cyst. 2) recurrent left leg dvt. provoked. 11/29 while on eliquis but in cast immobilizer for fx toes and long car trip. converted to pradaxa by hematology. 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 6) depression 7) ckd 3 Pt started on zosyn yun ED. given vancomycin and developed itch/rash/sob..given epi/steroid/benadryl and nebs ID was consulted and recommending cefazolin ngtd on wound cx's resume pradaxa today plan to dc when ok with ID/VAscular. cont basal and bolus insulin and titrate as needed. PT eval cont chronic home meds for chf/htn (2) Infected lesion of skin ICD Codes: L08.9 - Local infection of the skin and subcutaneous tissue, unspecified Status: Acute Plan: culture obtained plan as above (3) Diabetes ICD Codes: E11.9 - Type 2 diabetes mellitus without complications Status: Chronic Plan: continue current medications and sliding scale (4) Hypertension ICD Codes: I10 - Essential (primary) hypertension Plan: continue home medications (5) DVT (deep venous thrombosis) ICD Codes: I82.409 - Acute embolism and thrombosis of unspecified deep veins of unspecified lower extremity Plan: on chronic pradaxa Jack López MD Mar 12, 2018 10:53
[2018-03-12] MEDS: ONDANSETRON ODT 4 MG TAB PO PRN (14:20)
--- NOTE | 2018-03-12 16:43 | PD.CAR.PN ---
CVT Progress Note Subjective/Hospital Course: 63-year-old female with infected wound on the medial aspect of the left leg at the level of the knee Patient apparently broke foot recently and for the last 4 days has been draining from this wound This appears to be infected carbuncle possibly deeper infection Will need to be drained to prevent infection of the knee Patient is on Pradaxa so we will take her off Pradaxa for a few days and go to the OR to debride the wound and washed it out Thanks Araceli 03/10/2018 Patient scheduled for debridement of the left thigh wound tomorrow 03/12/2018 Patient status post excision of infected area of the left leg including a lymphocele cyst Area packed with Betadine gauze We will start changing dressings today By Thursday or Thursday patient will be ready to have a small wound VAC placed Objective: Vital Signs Date Time Temp Pulse Resp B/P (MAP) Pulse Ox O2 Delivery O2 Flow Rate FiO2 03/12/18 16:31 98.0 63 18 161/75 (103) 95 03/12/18 12:34 65 17 136/65 (88) 65 03/12/18 10:56 21 03/12/18 08:00 97.9 66 18 149/68 (95) 94 03/12/18 04:30 57 03/12/18 04:00 97.5 60 18 143/65 (91) 95 03/12/18 02:57 95 21 03/12/18 00:00 98.4 75 18 125/70 (88) 94 03/11/18 20:00 98.0 65 18 117/69 (85) 95 Result Diagram: 03/08/18 0544 03/11/18 0445 Felix Groves MD Mar 12, 2018 16:43
[2018-03-12] MEDS: TEMAZEPAM 15 MG CAP PO PRN (21:45)
[2018-03-12] MEDS: PRAVASTATIN SOD 80 MG TAB PO SCH (21:46)
[2018-03-12] MEDS: ACETAMINOPHEN/HYDROcodone 325 MG/7.5 MG TAB PO PRN (21:46)
[2018-03-12] MEDS: DABIGATRAN ETEXILATE 150 MG CAP PO SCH (21:47)
[2018-03-13] VITALS (9 sets, daily range): BP systolic 125–181; BP diastolic 60–81; PULSE 60–72; RESP 18–20; TEMP 97.9–98.1; O2SAT 93–98
[2018-03-13] MEDS: ceFAZolin 2 GM PREMIX 50 ML IV SCH ×2 (02:16→14:01)
[2018-03-13] MEDS: LACTULOSE SYRUP 20 GM/30 ML CUP PO PRN (05:41)
[2018-03-13] MEDS: ACETAMINOPHEN/HYDROcodone 325 MG/7.5 MG TAB PO PRN ×2 (05:41→23:15)
[2018-03-13] MEDS: INSULIN ASPART 1,000 UNITS/10 ML VIAL SQ SCH ×4 (08:00→21:00)
[2018-03-13] MEDS: INSULIN ASPART SUPPLEMENTAL SCALE SQ SCH ×4 (08:00→23:16)
[2018-03-13] MEDS: DABIGATRAN ETEXILATE 150 MG CAP PO SCH ×2 (09:00→21:17)
[2018-03-13] MEDS: SODIUM CHLORIDE 0.9% FLUSH 10 ML FLUSH IV FLUSH SCH ×2 (09:08→21:16)
[2018-03-13] MEDS: PANTOPRAZOLE SOD 40 MG DELAYED RELEASE TAB PO SCH (09:10)
[2018-03-13] MEDS: POTASSIUM CHLORIDE 20 MEQ CONTROLLED RELEASE TAB PO SCH (09:10)
[2018-03-13] MEDS: DOCUSATE SODIUM 50 MG/SENNA 8.6 MG TAB PO SCH ×2 (09:10→21:17)
[2018-03-13] MEDS: CARVEDILOL 6.25 MG TAB PO SCH ×2 (09:11→21:16)
[2018-03-13] MEDS: FUROSEMIDE 40 MG TAB PO SCH (09:11)
[2018-03-13] MEDS: ACETAMINOPHEN/HYDROcodone 325 MG/7.5 MG TAB PO SCH ×3 (09:15→17:18)
[2018-03-13] MEDS: LACTIC ACID (AMMONIUM LACTATE) 12% LOTION 225 GM BTL TOPICAL SCH ×2 (09:15→21:29)
--- NOTE | 2018-03-13 09:51 | HHI.PR ---
Subjective Remarks Pt reports that yesterday evening when she got up to go to the bathroom that her wound started bleeding through the bandages and down her leg and the bandages had to be replaced. Objective Vitals Vital Signs Date Time Temp Pulse Resp B/P (MAP) Pulse Ox O2 Delivery O2 Flow Rate FiO2 03/13/18 08:00 98.1 65 18 125/60 (81) 93 03/13/18 04:00 98.1 72 20 181/81 (114) 94 03/13/18 02:58 68 03/13/18 00:00 97.9 60 18 148/70 (96) 95 03/12/18 20:00 97.9 79 18 151/72 (98) 93 03/12/18 17:41 21 03/12/18 16:31 98.0 63 18 161/75 (103) 95 03/12/18 12:34 65 17 136/65 (88) 65 03/12/18 10:56 21 03/13/18 03/13/18 03/14/18 15:00 23:00 07:00 # Voids 4 Result Diagram: 03/11/18 0445 Imaging Last Impressions Knee X-Ray 03/08/18 0000 Signed Impressions: CONCLUSION: Left knee arthroplasty without fracture Chest X-Ray 03/07/18 1520 Signed Impressions: CONCLUSION: Clear lungs. Last 24 hours Impressions Chest X-Ray 03/07/18 1520 Signed Impressions: CONCLUSION: Clear lungs. Objective Remarks General: NAD, AAOx3 Chest: CTA Cardiac: Regular Abd: +BS, soft, obese, nontender Ext: LLE bandages are C/D/I, left foot pedal edema A/P Problem List: (1) Left leg cellulitis ICD Codes: L03.116 - Cellulitis of left lower limb Status: Acute Plan: Left leg cellulitis/purulent wound. Pt reports chronic wound x 6 yrs following vein removal for CABG surgery. - Pt underwent left leg surgery on 03/11 which noted infected tissue left knee area, infected lymphatic cyst s/p excision of the infected tissue, down through the muscle fascia and excision of this infected looking cyst. - Pt started on Zosyn in ED. 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 - Pt converted to Pradaxa by hematology. - Pradaxa resumed on 03/12 Chronic CHF HTN - Pt continued on Coreg 6.25mg po BID, Lasix 40mg po daily.KCL 20meq daily Diabetes - Cont. basal and bolus insulin - Titrate as needed Depression - Cont. home meds CKD, stage 3 - Labs stable (2) Infected lesion of skin ICD Codes: L08.9 - Local infection of the skin and subcutaneous tissue, unspecified Status: Acute Plan: - As above (3) Diabetes ICD Codes: E11.9 - Type 2 diabetes mellitus without complications Status: Chronic Plan: - As above (4) Hypertension ICD Codes: I10 - Essential (primary) hypertension Plan: - As above (5) DVT (deep venous thrombosis) ICD Codes: I82.409 - Acute embolism and thrombosis of unspecified deep veins of unspecified lower extremity Plan: - As above Assessment and Plan Patient examined. Assessment and plan formulated with Suzan Mccall PA-C. I agree with the above. left leg wound wrapped. extend wrap to foot to prevent worsening lymphedema. cont abx and will convert to po on dc wound vac planned. Suzan Mccall Mar 13, 2018 09:51 Jack López MD Mar 13, 2018 12:20
--- NOTE | 2018-03-13 10:49 | PD.CAR.PN ---
CVT Progress Note Subjective/Hospital Course: 63-year-old female with infected wound on the medial aspect of the left leg at the level of the knee Patient apparently broke foot recently and for the last 4 days has been draining from this wound This appears to be infected carbuncle possibly deeper infection Will need to be drained to prevent infection of the knee Patient is on Pradaxa so we will take her off Pradaxa for a few days and go to the OR to debride the wound and washed it out Thanks J 03/10/2018 Patient scheduled for debridement of the left thigh wound tomorrow 03/12/2018 Patient status post excision of infected area of the left leg including a lymphocele cyst Area packed with Betadine gauze We will start changing dressings today By Thursday or Thursday patient will be ready to have a small wound VAC placed 03/13/2018 Left leg wound has been repacked and is being packed daily with wet-to-dry gauze Eventually patient will be able to go home with a wound VAC and this should be allowed to heal from inside out Bilateral lower extremity edema in pretibial and feet more pronounced today Will be addressed by medicine Objective: Vital Signs Date Time Temp Pulse Resp B/P (MAP) Pulse Ox O2 Delivery O2 Flow Rate FiO2 03/13/18 08:00 98.1 65 18 125/60 (81) 93 03/13/18 04:00 98.1 72 20 181/81 (114) 94 03/13/18 02:58 68 03/13/18 00:00 97.9 60 18 148/70 (96) 95 03/12/18 20:00 97.9 79 18 151/72 (98) 93 03/12/18 17:41 21 03/12/18 16:31 98.0 63 18 161/75 (103) 95 03/12/18 12:34 65 17 136/65 (88) 65 03/12/18 10:56 21 Result Diagram: 03/11/18 0445 Felix rGoves MD Mar 13, 2018 10:49
[2018-03-13] MEDS: PRAVASTATIN SOD 80 MG TAB PO SCH (21:17)
[2018-03-13] MEDS: TEMAZEPAM 15 MG CAP PO PRN (23:15)
[2018-03-14] VITALS (7 sets, daily range): BP systolic 115–165; BP diastolic 56–84; PULSE 61–92; RESP 18–21; TEMP 98.1–98.4; O2SAT 93–96
[2018-03-14] MEDS: ceFAZolin 2 GM PREMIX 50 ML IV SCH ×2 (02:42→11:57)
[2018-03-14 08:18] LABS: AUTOMATED NEUTROPHIL # 5.5 TH/MM3 (1.8-7.7); BASOPHIL % 0.5 % (0.0-2.0); EOSINOPHIL # 0.4 TH/MM3 (0-0.4); HEMATOCRIT 39.5 % (35.0-46.0); HEMOGLOBIN 13.4 GM/DL (11.6-15.3); LYMPH % 28.6 % (9.0-44.0); LYMPHOCYTE # 2.6 TH/MM3 (1.0-4.8); MEAN CELL VOLUME 88.3 FL (80.0-100.0); MEAN CORPUSCULAR HEMOGLOBIN 29.9 PG (27.0-34.0); MEAN CORPUSCULAR HGB CONC 33.9 % (32.0-36.0); MEAN PLATELET VOLUME 7.5 FL (7.0-11.0); MONOCYTE # 0.5 TH/MM3 (0-0.9); NEUT % 60.9 % (16.0-70.0); PLATELET COUNT 300 TH/MM3 (150-450); RED BLOOD COUNT 4.48 MIL/MM3 (4.00-5.30); RED CELL DISTRIBUTION WIDTH 13.3 % (11.6-17.2)
[2018-03-14 08:36] LABS: BICARBONATE 29.4 MEQ/L (21.0-32.0); CALCIUM 8.5 MG/DL (8.5-10.1); CREATININE 1.14 MG/DL (0.50-1.00); MAGNESIUM 2.1 MG/DL (1.5-2.5)
[2018-03-14] MEDS: SODIUM CHLORIDE 0.9% FLUSH 10 ML FLUSH IV FLUSH SCH ×2 (09:00→21:18)
[2018-03-14] MEDS: buPROPion HCL 150 MG EXTENDED RELEASE TAB PO SCH (09:00)
[2018-03-14] MEDS: DABIGATRAN ETEXILATE 150 MG CAP PO SCH ×2 (09:00→21:19)
[2018-03-14] MEDS: POTASSIUM CHLORIDE 20 MEQ CONTROLLED RELEASE TAB PO SCH (10:09)
[2018-03-14] MEDS: INSULIN ASPART 1,000 UNITS/10 ML VIAL SQ SCH ×4 (10:10→21:00)
[2018-03-14] MEDS: INSULIN ASPART SUPPLEMENTAL SCALE SQ SCH ×4 (10:10→23:06)
[2018-03-14] MEDS: PANTOPRAZOLE SOD 40 MG DELAYED RELEASE TAB PO SCH (10:11)
[2018-03-14] MEDS: FUROSEMIDE 40 MG TAB PO SCH (10:11)
[2018-03-14] MEDS: DOCUSATE SODIUM 50 MG/SENNA 8.6 MG TAB PO SCH ×2 (10:11→21:18)
[2018-03-14] MEDS: ACETAMINOPHEN/HYDROcodone 325 MG/7.5 MG TAB PO SCH ×3 (10:12→18:22)
[2018-03-14] MEDS: CARVEDILOL 6.25 MG TAB PO SCH ×2 (10:12→21:19)
[2018-03-14] MEDS: LACTIC ACID (AMMONIUM LACTATE) 12% LOTION 225 GM BTL TOPICAL SCH ×2 (10:13→21:19)
--- NOTE | 2018-03-14 10:49 | HHI.PR ---
Subjective Remarks Pt somewhat emotional this morning because she is anxious to go home She had some bleeding from the wound again last night and dressing had to be replaced. She has less swelling today in the LLE/foot Objective Vitals Vital Signs Date Time Temp Pulse Resp B/P (MAP) Pulse Ox O2 Delivery O2 Flow Rate FiO2 03/14/18 10:26 Room Air 03/14/18 08:00 98.1 74 18 124/84 (97) 95 03/14/18 04:00 98.3 65 19 156/65 (95) 96 03/14/18 00:00 98.4 61 21 146/65 (92) 96 03/13/18 23:00 96 Nasal Cannula 2.00 03/13/18 23:00 71 03/13/18 20:00 97.9 68 19 163/68 (99) 98 03/13/18 16:00 98.1 61 18 134/61 (85) 94 03/13/18 14:29 93 03/13/18 12:00 97.9 62 18 169/80 (109) 94 Result Diagram: 03/14/18 0746 03/14/18 0746 Other Results Laboratory Tests Test 03/14/18 07:46 White Blood Count 9.0 TH/MM3 Red Blood Count 4.48 MIL/MM3 Hemoglobin 13.4 GM/DL Hematocrit 39.5 % Mean Corpuscular Volume 88.3 FL Mean Corpuscular Hemoglobin 29.9 PG Mean Corpuscular Hemoglobin Concent 33.9 % Red Cell Distribution Width 13.3 % Platelet Count 300 TH/MM3 Mean Platelet Volume 7.5 FL Neutrophils (%) (Auto) 60.9 % Lymphocytes (%) (Auto) 28.6 % Monocytes (%) (Auto) 6.0 % Eosinophils (%) (Auto) 4.0 % Basophils (%) (Auto) 0.5 % Neutrophils # (Auto) 5.5 TH/MM3 Lymphocytes # (Auto) 2.6 TH/MM3 Monocytes # (Auto) 0.5 TH/MM3 Eosinophils # (Auto) 0.4 TH/MM3 Basophils # (Auto) 0.0 TH/MM3 CBC Comment DIFF FINAL Differential Comment Blood Urea Nitrogen 17 MG/DL Creatinine 1.14 MG/DL Random Glucose 175 MG/DL Calcium Level 8.5 MG/DL Magnesium Level 2.1 MG/DL Sodium Level 142 MEQ/L Potassium Level 3.8 MEQ/L Chloride Level 103 MEQ/L Carbon Dioxide Level 29.4 MEQ/L Anion Gap 10 MEQ/L Estimat Glomerular Filtration Rate 48 ML/MIN Imaging Last Impressions Knee X-Ray 03/08/18 0000 Signed Impressions: CONCLUSION: Left knee arthroplasty without fracture Chest X-Ray 03/07/18 1520 Signed Impressions: CONCLUSION: Clear lungs. Last 24 hours Impressions Chest X-Ray 03/07/18 1520 Signed Impressions: CONCLUSION: Clear lungs. Objective Remarks General: NAD, AAOx3 Chest: CTA Cardiac: Regular Abd: +BS, soft, obese, nontender Ext: LLE bandages are C/D/I, less left foot pedal edema A/P Problem List: (1) Left leg cellulitis ICD Codes: L03.116 - Cellulitis of left lower limb Status: Acute Plan: Left leg cellulitis/purulent wound. Pt reports chronic wound x 6 yrs following vein removal for CABG surgery. - Pt underwent left leg surgery on 03/11 which noted infected tissue left knee area, infected lymphatic cyst s/p excision of the infected tissue, down through the muscle fascia and excision of this infected looking cyst. - Pt started on Zosyn in ED. She was given vancomycin and developed itch/rash/ sob, and was given epi/steroid/Benadryl and nebs - ID was consulted and recommending Cefazolin, started 03/08 - NGTD on wound cx's (03/07) - Surgical cultures with normal skin suresh consisting of Corneybacterium Sp and staph coagulase negative. - Discussed the case with Dr. Navarrete on 03/14 and the [facility] that the pt is on will not cover the bacteria noted on the surgical culture and recommended changing the abx to Daptomycin at a dose of 6mg/Kg Q24 hours. 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 - Pt converted to Pradaxa by hematology. - Pradaxa resumed on 03/12 Chronic CHF HTN - Pt continued on Coreg 6.25mg po BID, Lasix 40mg po daily.KCL 20meq daily Diabetes - Cont. basal and bolus insulin - Titrate as needed Depression - Cont. home meds CKD, stage 3 - Labs stable (2) Infected lesion of skin ICD Codes: L08.9 - Local infection of the skin and subcutaneous tissue, unspecified Status: Acute Plan: - as above (3) Diabetes ICD Codes: E11.9 - Type 2 diabetes mellitus without complications Status: Chronic Plan: - As above (4) Hypertension ICD Codes: I10 - Essential (primary) hypertension Plan: - As above (5) DVT (deep venous thrombosis) ICD Codes: I82.409 - Acute embolism and thrombosis of unspecified deep veins of unspecified lower extremity Plan: - As above Assessment and Plan Patient examined. Assessment and plan formulated with Suzan Mccall PA-C. I agree with the above. dvt on pradaxa left leg. left leg lymphedema left leg s/p surgical excision infected tissue/lymphoceole. cont wound care per Dr Severino plan for wound vac Thursday then dc iv to po abx on d/c. Suzan Mccall Mar 14, 2018 10:49 Jack López MD Mar 14, 2018 12:30
[2018-03-14] MEDS ORDERED: DAPTOmycin INJ 750 MG in SODIUM CHLORIDE 0.9% INJ 100 ML IV SCH (17:00)
[2018-03-14] MEDS: PRAVASTATIN SOD 80 MG TAB PO SCH (21:18)
[2018-03-14] MEDS: LACTULOSE SYRUP 20 GM/30 ML CUP PO PRN (21:19)
[2018-03-14] MEDS: TEMAZEPAM 15 MG CAP PO PRN (23:03)
[2018-03-14] MEDS: ACETAMINOPHEN/HYDROcodone 325 MG/7.5 MG TAB PO PRN (23:05)
[2018-03-15] VITALS (10 sets, daily range): BP systolic 122–164; BP diastolic 61–85; PULSE 57–74; RESP 16–20; TEMP 97.6–98.7; O2SAT 94–97
[2018-03-15] MEDS: FUROSEMIDE 40 MG TAB PO SCH (08:02)
[2018-03-15] MEDS: ACETAMINOPHEN/HYDROcodone 325 MG/7.5 MG TAB PO SCH ×3 (08:02→18:35)
[2018-03-15] MEDS: DOCUSATE SODIUM 50 MG/SENNA 8.6 MG TAB PO SCH ×2 (08:02→21:21)
[2018-03-15] MEDS: PANTOPRAZOLE SOD 40 MG DELAYED RELEASE TAB PO SCH (08:02)
[2018-03-15] MEDS: SODIUM CHLORIDE 0.9% FLUSH 10 ML FLUSH IV FLUSH SCH ×2 (08:02→21:00)
[2018-03-15] MEDS: POTASSIUM CHLORIDE 20 MEQ CONTROLLED RELEASE TAB PO SCH (08:02)
[2018-03-15] MEDS: CARVEDILOL 6.25 MG TAB PO SCH ×2 (08:02→21:21)
[2018-03-15] MEDS: DABIGATRAN ETEXILATE 150 MG CAP PO SCH ×2 (08:03→21:20)
[2018-03-15] MEDS: buPROPion HCL 150 MG EXTENDED RELEASE TAB PO SCH (08:03)
[2018-03-15] MEDS: INSULIN ASPART SUPPLEMENTAL SCALE SQ SCH ×4 (08:04→21:17)
[2018-03-15] MEDS: INSULIN ASPART 1,000 UNITS/10 ML VIAL SQ SCH ×4 (08:04→21:17)
[2018-03-15] MEDS: LACTIC ACID (AMMONIUM LACTATE) 12% LOTION 225 GM BTL TOPICAL SCH ×2 (08:10→21:19)
--- NOTE | 2018-03-15 08:32 | HHI.PR ---
Subjective Remarks Pt feeling well today There was no reported bleeding from the wound over night. She is anxious for discharge. Objective Vitals Vital Signs Date Time Temp Pulse Resp B/P (MAP) Pulse Ox O2 Delivery O2 Flow Rate FiO2 03/15/18 08:11 97.9 71 18 130/61 (84) 97 03/15/18 04:00 97.8 57 20 122/85 (97) 94 03/15/18 00:00 97.6 70 20 144/76 (98) 96 03/14/18 23:00 70 03/14/18 22:00 96 Room Air 03/14/18 20:30 92 18 165/84 (111) 93 03/14/18 16:00 98.1 83 18 115/56 (75) 93 03/14/18 12:00 72 18 127/62 (83) 93 03/14/18 10:26 Room Air Result Diagram: 03/14/18 0746 03/14/18 0746 Other Results Laboratory Tests Test 03/14/18 07:46 White Blood Count 9.0 TH/MM3 Red Blood Count 4.48 MIL/MM3 Hemoglobin 13.4 GM/DL Hematocrit 39.5 % Mean Corpuscular Volume 88.3 FL Mean Corpuscular Hemoglobin 29.9 PG Mean Corpuscular Hemoglobin Concent 33.9 % Red Cell Distribution Width 13.3 % Platelet Count 300 TH/MM3 Mean Platelet Volume 7.5 FL Neutrophils (%) (Auto) 60.9 % Lymphocytes (%) (Auto) 28.6 % Monocytes (%) (Auto) 6.0 % Eosinophils (%) (Auto) 4.0 % Basophils (%) (Auto) 0.5 % Neutrophils # (Auto) 5.5 TH/MM3 Lymphocytes # (Auto) 2.6 TH/MM3 Monocytes # (Auto) 0.5 TH/MM3 Eosinophils # (Auto) 0.4 TH/MM3 Basophils # (Auto) 0.0 TH/MM3 CBC Comment DIFF FINAL Differential Comment Blood Urea Nitrogen 17 MG/DL Creatinine 1.14 MG/DL Random Glucose 175 MG/DL Calcium Level 8.5 MG/DL Magnesium Level 2.1 MG/DL Sodium Level 142 MEQ/L Potassium Level 3.8 MEQ/L Chloride Level 103 MEQ/L Carbon Dioxide Level 29.4 MEQ/L Anion Gap 10 MEQ/L Estimat Glomerular Filtration Rate 48 ML/MIN Total Creatine Kinase 30 U/L Imaging Last Impressions Knee X-Ray 03/08/18 0000 Signed Impressions: CONCLUSION: Left knee arthroplasty without fracture Chest X-Ray 03/07/18 1520 Signed Impressions: CONCLUSION: Clear lungs. Last 24 hours Impressions Chest X-Ray 03/07/18 1520 Signed Impressions: CONCLUSION: Clear lungs. Objective Remarks General: NAD, AAOx3 Chest: CTA Cardiac: Regular Abd: +BS, soft, obese, nontender Ext: LLE bandages are C/D/I, less left foot pedal edema A/P Problem List: (1) Left leg cellulitis ICD Codes: L03.116 - Cellulitis of left lower limb Status: Acute Plan: Left leg cellulitis/purulent wound. Pt reports chronic wound x 6 yrs following vein removal for CABG surgery. - Pt underwent left leg surgery on 03/11 which noted infected tissue left knee area, infected lymphatic cyst s/p excision of the infected tissue, down through the muscle fascia and excision of this infected looking cyst. - Pt started on Zosyn in ED. She was given vancomycin and developed itch/rash/ sob, and was given epi/steroid/Benadryl and nebs - ID was consulted and recommending Cefazolin, started 03/08 - NGTD on wound cx's (03/07) - Surgical cultures with normal skin suresh consisting of Corynebacterium Sp and staph coagulase negative. - Discussed the case with Dr. Navarrete on 03/14 and the Ancef that the pt was on will not cover the bacteria noted on the surgical culture and recommended changing the abx to Daptomycin at a dose of 6mg/Kg Q24 hours. - Baseline CK level of 30, will need to check weekly. Pt is on statin drug - ID to re-evaluate today - Surgical team recommending wound vac placement on today or tomorrow. 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 - Pt converted to Pradaxa by hematology. - Pradaxa resumed on 03/12 Chronic CHF HTN - Pt continued on Coreg 6.25mg po BID, Lasix 40mg po daily.KCL 20meq daily Diabetes - Cont. basal and bolus insulin - Titrate as needed Depression - Pt reports that she has been off the Wellbutrin for the last few months. - She has been refusing this here. It will be discontinued from her med list. CKD, stage 3 - Labs stable (2) Infected lesion of skin ICD Codes: L08.9 - Local infection of the skin and subcutaneous tissue, unspecified Status: Acute Plan: - as above (3) Diabetes ICD Codes: E11.9 - Type 2 diabetes mellitus without complications Status: Chronic Plan: - As above (4) Hypertension ICD Codes: I10 - Essential (primary) hypertension Plan: - As above (5) DVT (deep venous thrombosis) ICD Codes: I82.409 - Acute embolism and thrombosis of unspecified deep veins of unspecified lower extremity Plan: - As above Assessment and Plan Patient examined. Assessment and plan formulated with Suzan Mccall PA-C. I agree with the above. dvt on pradaxa left leg. left leg lymphedema left leg s/p surgical excision infected tissue/lymphoceole. Pt's wound inspected at the bedside together with ID, Dr. Navarrete. Pt will be discharge on Zyvox PO x 2 weeks. Pt will be discharged with wound VAC. Anticipate d/c to home with HHC and Home PT in 1-2 days once all arrangements have been made. Suzan Mccall Mar 15, 2018 08:32 Maik Brunner DO Mar 16, 2018 09:33
--- NOTE | 2018-03-15 13:53 | HHI.IDPN ---
Subjective Subjective Remarks is a 63-year-old female complains of pain and swelling and redness of left leg and left knee. 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 Patient states that she has increasing redness swelling and discharge from the wound to the medial aspect the left leg for the past 3 days. Patient was seen by her oncologist 3 days ago and given prescription for antibiotics including Keflex and doxycycline. Patient has been taking antibiotic as directed but reports only doing 1 possibly 2 days of antibiotics so far. Patient states that she had increasing redness swelling and discharge from the area despite taking the antibiotics. Patient denies any fever chills. Patient has history of DVT on Pradaxa. Patient also has history of diabetes and hyperlipidemia. In er was started on vancomycin but had reaction requiring nebulizer,steroid treatment will admit for IV antibiotics and ID evaluation and wound care evaluation. Patient reports the lesion first started at site of her bypass grafting site. After this she had her knees replaced and the lesion has acted up off and on but this may be the worst so far. She reports hardware in her knee and no change in ROM of left knee. Patient reports the pain and swelling is what brought her to the ED. ID consulted for evaluation and Mment of left leg cellulitis and ulcer non healing by left knee. Notes reviewed no fever no chills no rash no diarrhea afebrile Antibiotics Dapto IV Lines PIV with no e/o infection Past Medical History PE, DVT, CAD Quad bypass MD, hyperlipidemia DM, hypertension, GERD, neuropathy Allergies: Coded Allergies: enoxaparin (Verified Allergy, Severe, BLOOD CLOTS, 03/07/18) heparin (porcine) (Verified Allergy, Severe, BLOOD CLOTS, 03/07/18) vancomycin (Verified Allergy, Severe, Shortness of Breath, 03/07/18) redness meperidine (Verified Allergy, Intermediate, HEADACHE, 03/07/18) morphine (Verified Allergy, Intermediate, RASH, 03/07/18) Objective . Vital Signs Date Time Temp Pulse Resp B/P (MAP) Pulse Ox O2 Delivery O2 Flow Rate FiO2 03/15/18 13:41 62 03/15/18 12:43 98.7 67 16 164/82 (109) 95 03/15/18 09:00 74 03/15/18 08:11 97.9 71 18 130/61 (84) 97 03/15/18 04:00 97.8 57 20 122/85 (97) 94 03/15/18 00:00 97.6 70 20 144/76 (98) 96 03/14/18 23:00 70 03/14/18 22:00 96 Room Air 03/14/18 20:30 92 18 165/84 (111) 93 03/14/18 16:00 98.1 83 18 115/56 (75) 93 . Laboratory Tests Test 03/14/18 07:46 White Blood Count 9.0 TH/MM3 Red Blood Count 4.48 MIL/MM3 Hemoglobin 13.4 GM/DL Hematocrit 39.5 % Mean Corpuscular Volume 88.3 FL Mean Corpuscular Hemoglobin 29.9 PG Mean Corpuscular Hemoglobin Concent 33.9 % Red Cell Distribution Width 13.3 % Platelet Count 300 TH/MM3 Mean Platelet Volume 7.5 FL Neutrophils (%) (Auto) 60.9 % Lymphocytes (%) (Auto) 28.6 % Monocytes (%) (Auto) 6.0 % Eosinophils (%) (Auto) 4.0 % Basophils (%) (Auto) 0.5 % Neutrophils # (Auto) 5.5 TH/MM3 Lymphocytes # (Auto) 2.6 TH/MM3 Monocytes # (Auto) 0.5 TH/MM3 Eosinophils # (Auto) 0.4 TH/MM3 Basophils # (Auto) 0.0 TH/MM3 CBC Comment DIFF FINAL Differential Comment Laboratory Tests Test 03/14/18 07:46 Blood Urea Nitrogen 17 MG/DL Creatinine 1.14 MG/DL Random Glucose 175 MG/DL Calcium Level 8.5 MG/DL Magnesium Level 2.1 MG/DL Sodium Level 142 MEQ/L Potassium Level 3.8 MEQ/L Chloride Level 103 MEQ/L Carbon Dioxide Level 29.4 MEQ/L Anion Gap 10 MEQ/L Estimat Glomerular Filtration Rate 48 ML/MIN Total Creatine Kinase 30 U/L Imaging Last Impressions Knee X-Ray 03/08/18 0000 Signed Impressions: CONCLUSION: Left knee arthroplasty without fracture Chest X-Ray 03/07/18 1520 Signed Impressions: CONCLUSION: Clear lungs. Physical Exam GENERAL: This is a well-nourished, well-developed patient, in no apparent distress. Awake and alert. Lying in bed. SKIN: No rashes, ecchymoses or lesions. Cool and dry. HEAD: Atraumatic. Normocephalic. No temporal or scalp tenderness. EYES: Pupils equal round and reactive. Extraocular motions intact. No scleral icterus. No injection or drainage. ENT: Nose without bleeding or purulent drainage. Throat without erythema, tonsillar hypertrophy or exudate. Uvula midline. Airway patent. NECK: Trachea midline. Supple, nontender, no meningeal signs. CARDIOVASCULAR: HS audible. RESPIRATORY: Clear to auscultation. Breath sounds equal bilaterally. No wheezes , rales, or rhonchi. GASTROINTESTINAL: Abdomen soft, non-tender, nondistended. MUSCULOSKELETAL: Bilateral LE with lymphedema like chronic changed. Chronic skin changes s/o stasis dermatitis. Chronic skin discoloration left more than right. Left leg s/p I&D, in postop dressing that is saturated with serosanguineous fluid, did not remove dressing. Increased erythema over left lower leg below adina wrap extending to ankle. NEUROLOGICAL: Awake and alert. Cranial nerves II through XII intact. Motor and sensory grossly within normal limits. Nonfocal. Normal speech. Psych cooperative IV line sites with no e.o infection. Assessment & Plan Remarks Left leg cellulitis with left leg medial aspect below knee with non healing ulcer. Imaging without any e/o underlying hardware infection Left leg infected lymphatic cyst -s/p excision of the infected tissue, down through the muscle fascia and excision of this infected looking cyst by Dr. Groves 03/11 Coag neg staph and Corynebacterium infection (intraop cultures) Lymphedema bilateral Chronic venous stasis CAD s/p CABG Bilateral TKR. Recs Ok to discharge home on oral zyvox for 2 weeks. Recommend CBC with diff and BMP in 1 week. Continue wound care. Will need wound vac on discharge. morales RODRIGUEZ for [facility] will sign off please call back if any change in clinical condition or questions. Johanna Navarrete MD Mar 15, 2018 13:53
[2018-03-15] MEDS: LINEZOLID 600 MG TAB PO SCH ×2 (15:37→21:21)
--- NOTE | 2018-03-15 15:51 | PD.CAR.PN ---
CVT Progress Note Subjective/Hospital Course: 63-year-old female with infected wound on the medial aspect of the left leg at the level of the knee Patient apparently broke foot recently and for the last 4 days has been draining from this wound This appears to be infected carbuncle possibly deeper infection Will need to be drained to prevent infection of the knee Patient is on Pradaxa so we will take her off Pradaxa for a few days and go to the OR to debride the wound and washed it out Thanks Araceli 03/10/2018 Patient scheduled for debridement of the left thigh wound tomorrow 03/12/2018 Patient status post excision of infected area of the left leg including a lymphocele cyst Area packed with Betadine gauze We will start changing dressings today By Thursday or Thursday patient will be ready to have a small wound VAC placed 03/13/2018 Left leg wound has been repacked and is being packed daily with wet-to-dry gauze Eventually patient will be able to go home with a wound VAC and this should be allowed to heal from inside out Bilateral lower extremity edema in pretibial and feet more pronounced today Will be addressed by medicine 03/15/2018 Wound seen today Small wound VAC placed. Incision is nice and clean rubor and edema have completely disappeared Wound VAC can be changed every Thursday and for about 3 weeks I will see patient in about 3 weeks in my office and by that time this may be granulated enough that wound VAC will be needed anymore Discussed with patient and Dr. Brunner From my point patient get home with a wound VAC any time Objective: Vital Signs Date Time Temp Pulse Resp B/P (MAP) Pulse Ox O2 Delivery O2 Flow Rate FiO2 03/15/18 13:41 62 03/15/18 12:43 98.7 67 16 164/82 (109) 95 03/15/18 09:00 74 03/15/18 08:11 97.9 71 18 130/61 (84) 97 03/15/18 04:00 97.8 57 20 122/85 (97) 94 03/15/18 00:00 97.6 70 20 144/76 (98) 96 03/14/18 23:00 70 03/14/18 22:00 96 Room Air 03/14/18 20:30 92 18 165/84 (111) 93 03/14/18 16:00 98.1 83 18 115/56 (19) 93 Result Diagram: 03/14/18 0746 03/14/18 0746 Felix Groves MD Mar 15, 2018 15:51
--- NOTE | 2018-03-15 18:00 | PD.WCN.NOT ---
Wound Consult Description: Consult for WOUND MANAGEMENT of left knee area per Dr Johns. Communicated with: RN Dr Charles Patient Recommendation: Change wound VAC as ordered by Dr Charles. Additional Information: Patient seen on for wound VAC application Neg Pressure Wound Therapy Wound Location Wound Location: Left lower extremity Wound Description Length: 7.8cm Width: 3.5cm Depth: 2.9cm Wound bed appearance: Red moist tissue Periwound appearance: Unremarkable Settings Suction: 125 mmHg, Continuous Intensity: Low Foam type: Black Number of pieces: 1 Additonal Information Wound was open to air upon arrival with patient stating "The Dr took the dressing off and just left it open, that was a while ago." Wound was cleansed with NS and gauze, measured above. Wound has minimal clear drainage. No odor was noted. One piece of black granufoam was placed in wound bed, sensitrac pad placed over foam and secured with one piece of VAC drape. Wound VAC machine turned on and working properly without leaks noted. Educated patient and patient significant other at bedside regarding not showering with VAC and if unable to obtain or maintain a seal to call home health care and follow protocols. Nini Godoy [facility] Mar 15, 2018 18:00
[2018-03-15] MEDS: PRAVASTATIN SOD 80 MG TAB PO SCH (21:21)
[2018-03-15] MEDS: TEMAZEPAM 15 MG CAP PO PRN (23:44)
[2018-03-15] MEDS: ACETAMINOPHEN/HYDROcodone 325 MG/7.5 MG TAB PO PRN (23:45)
[2018-03-16 00:11] VITALS: BP 137/93; PULSE 66; RESP 20; TEMP 97.8; O2SAT 98
[2018-03-16 04:52] VITALS: BP 119/57; PULSE 69; RESP 20; TEMP 97.8; O2SAT 97
[2018-03-16 07:06] LABS: AUTOMATED NEUTROPHIL # 3.5 TH/MM3 (1.8-7.7); BASOPHIL % 0.3 % (0.0-2.0); EOSINOPHIL # 0.3 TH/MM3 (0-0.4); EOSINOPHIL % 4.2 % (0.0-4.0); HEMOGLOBIN 12.5 GM/DL (11.6-15.3); LYMPH % 38.1 % (9.0-44.0); LYMPHOCYTE # 2.6 TH/MM3 (1.0-4.8); MEAN CORPUSCULAR HEMOGLOBIN 29.9 PG (27.0-34.0); MEAN CORPUSCULAR HGB CONC 33.9 % (32.0-36.0); MEAN PLATELET VOLUME 7.8 FL (7.0-11.0); MONO % 7.1 % (0.0-8.0); MONOCYTE # 0.5 TH/MM3 (0-0.9); NEUT % 50.3 % (16.0-70.0); PLATELET COUNT 285 TH/MM3 (150-450); RED CELL DISTRIBUTION WIDTH 13.6 % (11.6-17.2); WHITE BLOOD COUNT 6.9 TH/MM3 (4.0-11.0)
[2018-03-16 07:27] LABS: BICARBONATE 27.3 MEQ/L (21.0-32.0); CALCIUM 8.8 MG/DL (8.5-10.1); CREATININE 1.18 MG/DL (0.50-1.00); MAGNESIUM 1.9 MG/DL (1.5-2.5)
[2018-03-16] MEDS: DOCUSATE SODIUM 50 MG/SENNA 8.6 MG TAB PO SCH (08:08)
[2018-03-16] MEDS: POTASSIUM CHLORIDE 20 MEQ CONTROLLED RELEASE TAB PO SCH (08:08)
[2018-03-16] MEDS: FUROSEMIDE 40 MG TAB PO SCH (08:08)
[2018-03-16] MEDS: CARVEDILOL 6.25 MG TAB PO SCH (08:09)
[2018-03-16] MEDS: LINEZOLID 600 MG TAB PO SCH ×2 (08:09→17:35)
[2018-03-16] MEDS: PANTOPRAZOLE SOD 40 MG DELAYED RELEASE TAB PO SCH (08:09)
[2018-03-16] MEDS: SODIUM CHLORIDE 0.9% FLUSH 10 ML FLUSH IV FLUSH SCH (08:11)
[2018-03-16] MEDS: DABIGATRAN ETEXILATE 150 MG CAP PO SCH (08:17)
[2018-03-16 08:32] VITALS: BP 152/66; PULSE 60; RESP 20; TEMP 98.1; O2SAT 99
[2018-03-16] MEDS: INSULIN ASPART SUPPLEMENTAL SCALE SQ SCH ×2 (08:32→13:20)
[2018-03-16] MEDS: ACETAMINOPHEN/HYDROcodone 325 MG/7.5 MG TAB PO SCH ×2 (09:00→18:03)
[2018-03-16] MEDS: LACTIC ACID (AMMONIUM LACTATE) 12% LOTION 225 GM BTL TOPICAL SCH (09:00)
[2018-03-16 10:14] VITALS: O2SAT 99
[2018-03-16] MEDS: INSULIN ASPART 1,000 UNITS/10 ML VIAL SQ SCH ×2 (10:59→13:38)
[2018-03-16 12:45] VITALS: BP 142/64; PULSE 63; RESP 20; TEMP 97.6; O2SAT 98
[2018-03-16] MEDS ORDERED: ZYVO600T PO (15:10)
--- NOTE | 2018-03-16 15:13 | HHI.FF ---
Face to Face Verification Diagnosis: (1) Infected lesion of skin (2) Failure of outpatient treatment (3) Diabetes (4) DVT (deep venous thrombosis) (5) Hypertension (6) Left leg cellulitis (7) Allergic reaction to drug Physical Therapy Order: Evaluate and Treat, Improve ambulation, Strength and gait training Home Health Nursing Order: Signs/symptoms of disease process Wound care and dressing changes Nursing assessment with vital signs Instructions: Recommend CBC with diff and BMP in on 02/20/18 with results to pts PCP, Dr. Blanton. Wound vac changes as ordered, every Thursday and I have seen patient Vannessa Villegas on 03/16/18. My clinical findings support the need for the requested home health care services because: Deconditioned w/ increased weakness Infection w/ risk of complications I certify that my clinical findings support that this patient is homebound because: Post-op weakness Suzan Mccall Mar 16, 2018 15:13 Maik Brunner DO Mar 17, 2018 12:45
--- NOTE | 2018-03-16 15:20 | HHI.DCPOC ---
Discharge Care Plan Diagnosis: (1) Allergic reaction to drug (2) Left leg cellulitis (3) Failure of outpatient treatment (4) Diabetes (5) DVT (deep venous thrombosis) (6) Hypertension (7) Infected lesion of skin Goals to Promote Your Health * To prevent worsening of your condition and complications * To maintain your health at the optimal level Directions to Meet Your Goals Take your medications as prescribed Follow your dietary instruction Follow activity as directed Keep your appointments as scheduled Take your immunizations and boosters as scheduled If your symptoms worsen call your PCP, if no PCP go to Urgent Care Center or Emergency Room Smoking is Dangerous to Your Health. Avoid second hand smoke Call the 24-hour hour crisis hotline for domestic abuse at Suzan Mccall Mar 16, 2018 15:20
[2018-03-16 15:26] VITALS: PULSE 62
[2018-03-16] MEDS ORDERED: POTASSIUM CHLORIDE 20 MEQ CONTROLLED RELEASE TAB PO ONE (16:00)
--- NOTE | 2018-03-16 16:57 | HHI.DS ---
Discharge Summary Admission Date March 07, 2018 at 17:52 Discharge Date: Mar 16, 2018 Admitting Diagnosis Left leg cellulitis. Infected lesion left leg. (1) Left leg cellulitis Diagnosis: Principal ICD Codes: L03.116 - Cellulitis of left lower limb Status: Acute (2) Infected lesion of skin Diagnosis: Principal ICD Codes: L08.9 - Local infection of the skin and subcutaneous tissue, unspecified Status: Acute (3) Diabetes Diagnosis: Secondary ICD Codes: E11.9 - Type 2 diabetes mellitus without complications Status: Chronic (4) Hypertension Diagnosis: Secondary ICD Codes: I10 - Essential (primary) hypertension (5) DVT (deep venous thrombosis) Diagnosis: Secondary ICD Codes: I82.409 - Acute embolism and thrombosis of unspecified deep veins of unspecified lower extremity Consultants Dr. Johanna Navarrete - ID Dr. Felix Groves - Surgery Brief History 63-year-old female complains of pain and swelling and redness of left leg and left knee. 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 Patient states that she has increasing redness swelling and discharge from the wound to the medial aspect the left leg for the past 3 days. Patient was seen by her oncologist 3 days ago and given prescription for antibiotics including Keflex and doxycycline. Patient has been taking antibiotic as directed. Patient states that she had increasing redness swelling and discharge from the area despite taking the antibiotics. Patient denies any fever chills. Patient has history of DVT on Pradaxa. Patient also has history of diabetes and hyperlipidemia. In er was started on vancomycin but had reaction requiring nebulizer,steroid treatment will admit for IV antibiotics and ID evaluation and wound care evaluation. Culture obtained. CBC/BMP: 03/16/18 0632 03/16/18 0632 Significant Findings Laboratory Tests Test 03/14/18 07:46 03/16/18 06:32 Creatinine 1.14 MG/DL (0.50-1.00) 1.18 MG/DL (0.50-1.00) Random Glucose 175 MG/DL (74-106) 192 MG/DL (74-106) Estimat Glomerular Filtration Rate 48 ML/MIN (>89) 46 ML/MIN (>89) Eosinophils (%) (Auto) 4.2 % (0.0-4.0) Blood Urea Nitrogen 19 MG/DL (7-18) Potassium Level 3.4 MEQ/L (3.5-5.1) Imaging Last Impressions Knee X-Ray 03/08/18 0000 Signed Impressions: CONCLUSION: Left knee arthroplasty without fracture Chest X-Ray 03/07/18 1520 Signed Impressions: CONCLUSION: Clear lungs. PE at Discharge General: NAD, AAOx3 Chest: CTA Cardiac: Regular Abd: +BS, soft, obese, nontender Ext: LLE bandages are C/D/I, less left foot pedal edema Hospital Course Left leg cellulitis/purulent wound. Pt reports chronic wound x 6 yrs following vein removal for CABG surgery. - Pt underwent left leg surgery on 03/11 which noted infected tissue left knee area, infected lymphatic cyst s/p excision of the infected tissue, down through the muscle fascia and excision of this infected looking cyst. Pt started on Zosyn in ED. She was given vancomycin and developed itch/rash/sob, and was given epi/steroid/Benadryl and nebs. ID was consulted and recommending Cefazolin , started 03/08. NGTD on wound cx's (03/07). Surgical cultures with normal skin suresh consisting of Corynebacterium Sp and staph coagulase negative. Discussed the case with Dr. Navarrete on 03/14 and the [facility] that the pt was on will not cover the bacteria noted on the surgical culture and recommended changing the abx to Daptomycin at a dose of 6mg/Kg Q24 hours. ID re-evaluated on 03/15 and changed antibiotics to oral Zyvox 600mg BID for 2 weeks. She had the wound vac placed on 03/15/18 Pt has been recommend to have a CBC with diff and BMP in 1 week with results to Dr. Blanton She will continue wound care with [facility] for wound vac changes every Thursday and for approximately 3 weeks and then followup with Dr. Groves in 3 weeks for evaluation and to see if the wound vac can be discontinued at that time or not. 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 Pt converted to Pradaxa by hematology. Pradaxa resumed on 03/12 and this will be continued as an outpt. Chronic CHF HTN - Pt to be continued on Coreg 6.25mg po BID, Lasix 40mg po daily.KCL 20meq daily Diabetes - Resume home regimen of Tresiba 60 units TID and NovoLog 17 units ACHS and monitor blood sugars closely at home. Depression - Pt reports that she has been off the Wellbutrin for the last few months. It will be discontinued from her med list. CKD, stage 3 - Labs stable Pt will need to followup with Dr. Blanton in 3 weeks She will need to followup with Dr. Groves in 3 weeks Pt Condition on Discharge: Stable Discharge Disposition: Disch w/ Home Health Serv Discharge Instructions DIET: Follow Instructions for: Heart Healthy Diet, Diabetic Diet Activities you can perform: Weight Bearing as Olesya Follow up Referrals: PCP Follow-up - [address] Blanton Surgical - [address] Groevs New Medications: Linezolid (Zyvox) 600 Mg Tab 600 MG PO Q12HR for Infection for 14 Days, TAB Continued Medications: Carvedilol (Carvedilol) 6.25 Mg Tab 6.25 MG PO BID, #60 TAB 0 Refills Dabigatran (Pradaxa) 150 Mg Cap 150 MG PO BID for Blood Clot Prevention, #60 CAP 0 Refills Furosemide (Furosemide) 40 Mg Tab 40 MG PO DAILY, #30 TAB 0 Refills Hydrocodone-Acetaminophen (Hydrocodone-Acetaminophen) 7.5 Mg-325 Mg Tab 1 TAB PO TID, TAB 0 Refills Insulin Aspart Inj (Novolog Inj) 1,000 Unit/10 Ml Vial 17 UNITS SQ ACHS for Blood Sugar Management, #10 ML 0 Refills Max dose at bedtime ( ) units; sugars less than 70,(0) units; sugars 150-199,(2) units; sugars 200-249,(4) units; sugars 250-299,(7) units; sugars 300-349,(10) units; sugars greater than 349,(12)units Insulin Degludec Inj (Tresiba Flextouch Pen Inj) 300 unit/3 ML Pen 60 UNITS SQ TID for Blood Sugar Management, #15 ML 0 Refills Omeprazole (Omeprazole) 40 Mg Cap 40 MG PO DAILY, #30 CAP 0 Refills Potassium Chloride ER (Potassium Chloride ER) 20 Meq Tab 20 MEQ PO DAILY for Electrolyte Replacement, #30 TAB 0 Refills Simvastatin (Simvastatin) 40 Mg Tab 40 MG PO HS for Cholesterol Management, #30 TAB 0 Refills Suzan Mccall Mar 16, 2018 16:57
== END 2018-03-16 18:34 | disposition home health service (06) | DRG 571 ==
LOC: NEPE 13:46 → NEDA 17:52 → N05A 20:10
PROVIDERS: ADMIT Hospitalist; ATTEND Hospitalist
PROC: 0JBP0ZZ Excision of Left Lower Leg Subcutaneous Tissue and Fascia, Open Approach (ICD-10-PCS; 2018-03-11)
PROC: 0KBT0ZZ Excision of Left Lower Leg Muscle, Open Approach (ICD-10-PCS; principal; 2018-03-11 13:25)
DX: L03.116 Cellulitis of left lower limb (principal); I82.402 Acute embolism and thrombosis of unspecified deep veins of left lower extremity; E11.22 Type 2 diabetes mellitus with diabetic chronic kidney disease; I13.0 Hypertensive heart and chronic kidney disease with heart failure and stage 1 through stage 4 chronic kidney disease, or unspecified chronic kidney disease; I50.9 Heart failure, unspecified; E11.40 Type 2 diabetes mellitus with diabetic neuropathy, unspecified; L97.829 Non-pressure chronic ulcer of other part of left lower leg with unspecified severity; K21.9 Gastro-esophageal reflux disease without esophagitis; Z86.711 Personal history of pulmonary embolism; Z95.1 Presence of aortocoronary bypass graft; Z90.710 Acquired absence of both cervix and uterus; L08.9 Local infection of the skin and subcutaneous tissue, unspecified; L72.8 Other follicular cysts of the skin and subcutaneous tissue; N18.3 Chronic kidney disease, stage 3 (moderate); E78.5 Hyperlipidemia, unspecified; Z86.718 Personal history of other venous thrombosis and embolism; I25.10 Atherosclerotic heart disease of native coronary artery without angina pectoris; Z96.653 Presence of artificial knee joint, bilateral; I25.2 Old myocardial infarction; F32.9 Major depressive disorder, single episode, unspecified; I87.8 Other specified disorders of veins; I89.0 Lymphedema, not elsewhere classified; Z79.4 Long term (current) use of insulin; L02.93 Carbuncle, unspecified; R06.02 Shortness of breath; R21 Rash and other nonspecific skin eruption; Z88.1 Allergy status to other antibiotic agents; Z88.5 Allergy status to narcotic agent; Z88.8 Allergy status to other drugs, medicaments and biological substances; Z79.01 Long term (current) use of anticoagulants
CPT/HCPCS: 71045; 73560; 76937; 80048; 80053; 81001; 82550; 82948; 83735; 85025; 85610; 85730; 86403; 87015; 87040; 87070; 87077; 87102; 87116; 87176; 87186; 87205; 87206; 88304; 88305; 93005; 94640; 94664; 96361; 96365; 96372; 96375; J0171; J0690; J0878; J1170; J1200; J1815; J2060; J2370; J2405; J2543; J2930; J3010; J3370; J7030; J7050; Q0169